=== PATIENT | female | born 1950 | race Caucasian/White ===

== ENCOUNTER → 2017-04-22 | Outpatient (CLI) | payer BC ==
[~2017-04-22] MED LIST: EPP3 IM; HMLIS SC; INSU3INJ3 SC; LISI-729 PO; NAPR1TAB9 PO; SIMV5TAB2 PO; SYN112 PO; TRAV0.00 OP
[2017-04-22 09:39] LABS: ESTIMATED AVERAGE GLUCOSE 266 mg/dl; HA1C FLAG Normal (Normal)
[2017-04-22 09:45] LABS: ALT/SGPT 55 U/L (12-78); AST/SGOT 66 U/L (15-37); BLOOD UREA NITROGEN 18 mg/dl (7-18); BUN/CREATININE RATIO 23.4 (10-20); CALCIUM 8.8 mg/dl (8.5-10.1); CARBON DIOXIDE 26 mmol/L (21-32); CHLORIDE 105 mmol/L (98-107); CREATININE 0.78 mg/dl (0.60-1.20); GLUCOSE 136 mg/dl (70-99); POTASSIUM 3.9 mmol/L (3.5-5.1); SODIUM 138 mmol/L (136-145)
[2017-04-22 09:58] LABS: ALB/GLOB RATIO 0.9 (0.9-2); ALKALINE PHOSPHATASE 154 U/L (45-117); CHOLESTEROL 132 mg/dl (0-200); CHOLESTEROL/HDL RATIO 1.6; HDL CHOLESTEROL 83 mg/dl; LDL CHOLESTEROL CALCULATED 36 mg/dl; TRIGLYCERIDES 64 mg/dl (0-150); VERY LOW DENSITY LIPOPROT CALC 13 mg/dl
== END | disposition home or self-care (01) ==
LOC: C.LAB 07:07
PROVIDERS: ATTEND Family Medicine
DX: E11.65 Type 2 diabetes mellitus with hyperglycemia (principal); I10 Essential (primary) hypertension

== ENCOUNTER 2021-05-03 20:18 | Inpatient (IN) ==
[2021-05-03] MEDS ORDERED: STAT IV Infusion **Titration per Protocol STA ×5 (20:53→22:40)
[2021-05-03] MEDS ORDERED: INSULIN REGULAR 250 UNITS in SODIUM CHLORIDE 0.9% 247.5 ML IV SCH (21:00)
[2021-05-03] MEDS ORDERED: SODIUM CHLORIDE 0.9% 1000ML 1,000 ML IV SCH ×2 (21:00)
--- NOTE | 2021-05-03 21:04 | XRay Report ---
XR chest 1V portable INDICATION: MN ^weakness . TECHNIQUE: Single frontal radiograph of the chest was obtained. Comparison: Comparison is made to chest one view 07/04/2016 FINDINGS: No lines and tubes are seen. The cardiomediastinal silhouette is normal. The lungs are clear. No evid ence of pleural effusion or pneumothorax. IMPRESSION: No acute chest disease. ACT 112: Negative or not required by law. Electronically signed by: Romeo Oviedo M.D. 05/03/2021 9:03 PM
[2021-05-03] MEDS ORDERED: DKA GOAL RANGE 150-250 mg/dl ONE (21:11)
[2021-05-03] MEDS ORDERED: CARBOHYDRATES FOR HYPOGLYCEMIA PO PRN (21:11)
[2021-05-03] MEDS ORDERED: GLUCAGON FOR INJ 1 MG VIAL SQ PRN (21:11)
[2021-05-03] MEDS ORDERED: GLUCOSE 10 TABS/TUBE PO PRN (21:11)
[2021-05-03] MEDS ORDERED: GLUCOSE 40% GEL 15 GM TUBE PO PRN (21:11)
[2021-05-03] MEDS ORDERED: DEXTROSE 50% 50 ML SYRINGE IV PRN (21:11)
[2021-05-03] MEDS ORDERED: NovoLIN-R BOLUS FROM BAG IV ONE (21:30)
[2021-05-03] MEDS: INSULIN REGULAR 250 UNITS in SODIUM CHLORIDE 0.9% 247.5 ML IV SCH (21:37)
[2021-05-03 21:40] LABS: Alanine Aminotransferase 31 U/L (12-78); Albumin Level 3.1 gm/dl (3.4-5.0); Aspartate Aminotransferase 26 U/L (15-37); BUN Creatinine Ratio 24.8 (10-20); Blood Urea Nitrogen 61 mg/dl (7-18); Calcium 9.1 mg/dl (8.5-10.1); Carbon Dioxide 5 mmol/L (21-32); Chloride 84 mmol/L (98-107); Creatinine Clr Calc Pharmacy 26.3 ml/min; Est GFR (African American) 22.3 ml/min; Est GFR (Non-African American) 19.2 ml/min; Glucose 1101 mg/dl (70-99); Potassium 6.8 mmol/L (3.5-5.1); Sodium 118 mmol/L (136-145)
[2021-05-03] MEDS ORDERED: SODIUM CHLORIDE 0.9% 1000ML 1,000 ML IV ONE (21:44)
[2021-05-03 21:46] LABS: Albumin Globulin Ratio 0.5 (0.9-2); Alkaline Phosphatase 221 U/L (45-117); Bilirubin,Total 0.7 mg/dl (0.2-1); Globulin 5.6 gm/dl (2.5-4.0); Total Protein 8.7 gm/dl (6.4-8.2); Troponin I < 0.015 ng/ml (0-0.045)
[2021-05-03] MEDS ORDERED: CALCIUM GLUCONATE 10% 10 ML VIAL IV STA (21:50)
[2021-05-03] MEDS ORDERED: SODIUM BICARB 8.4% INJ 50 MEQ/50 ML SYR IV STA (21:52)
--- NOTE | 2021-05-03 22:03 | Emergency Department Note ---
Impression & Plan DKA (diabetic ketoacidosis), Acute renal failure (ARF), Acute hyperkalemia ED Provider Note INFORMANT: Patient and sister ED PROVIDER(S): Naveen Castellanos MD CHIEF COMPLAINT: Hyperglycemia PLAN: Disposition: Admitted Condition: Critical Outpatient prescription management: none Referral: None MEDICAL DECISION MAKING: Patient presented to emergency room with hyperglycemia. She was quite uncomfortable and appeared very dry. The patient had IV established. Fluids were initiated. Bedside glucose was greater than 600. Laboratory testing confirmed suspicions for DKA. The patient was hyperkalemic and severely hyperglycemic. Pseudohyponatremia was present. The patient had acute renal failure noted. Her bicarb was 5. ECG did not show any significant abnormalities consistent with hyperkalemia. Patient was given bicarb and IV calcium. Additional fluids were given. Patient was started on insulin drip. She did receive an insulin bolus. Her insulin treatment was discussed with the pharmacist. Patient was reassessed and was doing better. She will need admitted to the hospital, likely the ICU. I discussed the case with Dr. Ceron of the hospitalist service. The patient was evaluated in the ER and admitted for further management. Triage Nursing notes reviewed and agree them. Vital Signs: reviewed and remarkable for no significant abnormalities Differential diagnosis: DKA, infection, dehydration, metabolic abnormality, hypo/hyperglycemia, electrolyte disturbance, anemia, hypoxia, cardiac sources, intracerebral event, toxicologic, neurologic, as well as other pathologies. Diagnostics interpreted by me: ECG: Twelve-lead ECG reveals normal sinus rhythm at 92 bpm. There are septal Q waves present. Minimally peaked appearance to the T waves but nothing grossly abnormal. There is no ST elevation. No PVCs or PACs. Cardiac Monitoring:Cardiac monitoring ordered by me: The patient was placed on continuous cardiac monitoring and observed. It revealed a normal sinus rhythm at 93 beats per minute without ectopy or evidence of dysrhythmia. Imaging studies: Chest x-ray. Findings: A chest x-ray was performed and revealed no pneumothorax, effusion, infiltrate, pulmonary edema, free air under the diaphragm, or wide mediastinum. Impression: No acute disease. HPI: The patient is a 70 year old female who presents to the Emergency Room with complaints of hyperglycemia. This started over the last few days and is worsening. The patient also notes she was diagnosed with Covid on the fourth. She has had symptoms for 14 days. She stopped taking her insulin because she was not eating much. The patient also notes the following associated symptoms, dry mouth, fatigue, exhaustion, occasional shortness of breath, occasional chest discomfort. The patient has found no relieving factors. Current pain is rated as 0/10. Pt denies LOC, headache, fevers, chills, diaphoresis, visual changes, neck pain, nausea, vomiting, abdominal pain, back pain, melena, hematochezia, urinary symptoms, numbness, weakness, lymphadenopathy, rash, or other complaints. ROS: See above HPI for pertinent positives & negatives. A total of 10 systems reviewed and were otherwise negative. PAST MEDICAL HISTORY:See Below , diabetes PAST SURGICAL HISTORY:See Below, FAMILY HISTORY:See Below SOCIAL HISTORY:See Below, non-smoker HOME MEDICATIONS:See Below ALLERGIES:See Below VITALS:See Below PHYSICAL EXAMINATION: GENERAL: Awake, ill-appearing, in mild distress HENT: Normocephalic, atraumatic. Oropharynx with extremely dry mucous membranes. EYES: Normal conjunctiva. Sclera non-icteric. PERRLA. EOMI. NECK: Inspection normal. Non-tender. Supple. No nuchal rigidity. FROM. No masses. RESPIRATORY: Clear to auscultation. No wheezes. No rales. Normal respiratory effort. CARDIAC: Borderline tachycardic rate. Normal rhythm. No murmurs. No rubs. Extremities warm and well perfused. Pulses equal. No JVD. GI: Soft, non-distended. No tenderness to palpation. No rebound or guarding. No masses. RECTAL: Deferred. MUSCULOSKELETAL: Atraumatic. Chest examination reveals no tenderness. The back is symmetrical on inspection without obvious abnormality. There is no CVA tenderness to palpation. No joint edema. LOWER EXTREMITIES: Calves are equal size bilaterally and non-tender. No edema. No discoloration. NEURO: Extremely fatigued but otherwise normal sensorium. No sensory or motor deficits noted. SKIN: No rash or jaundice noted. CRITICAL CARE: I have personally spent greater than 75 minutes of critical care time in the direct management of this patient. This includes bedside care, interpretation of diagnostic studies, and testing, discussion with consultants, patient, and family members, and other required patient management activities. These minutes are in excess of all separately billable procedures. Naveen Castellanos MD Past Med/Surg History Medical History (Updated 05/03/21 @ 22:03 by Naveen Castellanos MD) Bakers cyst Surgical History H/O thyroidectomy History of back surgery Family History Mother Arthritis Malignant neoplasm of urinary bladder Brother Cardiac disorder Sister Back pain Father Myocardial infarction Denies family history of Ovarian cancer Prostate cancer Breast cancer Colorectal cancer Social History Smoking Status: Never smoker Second Hand Exposure: No; Hx Alcohol Use: No Hx Substance Use: No Preferred Language: Citizen Of [place] Communication Ability: Effective Visual Impairment: Limited Hearing Ability: Normal marital status: Single Current Living Situation: Alone current occupational status: employed and retired Feels Safe at Home: Yes Childhood Exposure to Second-Hand Smoke: No Dental Care, Regularly: Yes Physical Activity Frequency: Daily Seatbelt Use: always Sunscreen Use: Yes Allergies Allergies Allergy/AdvReac Type Severity Reaction Status Date / Time bee venom protein (honey bee) Allergy Severe ANAPHYLAXIS Verified 03/18/21 10:43 lovastatin [From Mevacor] Allergy Verified 03/18/21 10:43 Home Meds Home Medications Medication Instructions Recorded Confirmed aspirin 81 mg tablet,delayed 81 mg PO DAILY tab 03/07/19 03/18/21 release fexofenadine-pseudoephedrine ER 1 tab PO DAILY PRN tab 03/07/19 03/18/21 180 mg-240 mg tablet,ext.release 24 hr (Reanna-D 24 Hour) diphenhydramine 25 1 tab PO Q6H PRN 03/18/20 03/18/21 mg-acetaminophen 500 mg tablet (Tylenol PM Extra Strength) insulin glargine 100 unit/mL (3 40 unit SQ HS ml 03/18/21 03/18/21 mL) subcutaneous pen (Lantus Solostar U-100 Insulin) insulin lispro 100 unit/mL 80 unit SQ DAILY ml 03/18/21 03/18/21 subcutaneous pen (Humalog KwikPen (U-100) Insulin) omega 9-kpg-zlx-fish oil 1,200 mg 1 cap PO DAILY cap 03/18/21 03/18/21 (144 mg-216 mg) capsule (Fish Oil) Previous Rx's Medication Instructions Recorded pneumococcal 23-jose ps vaccine 25 0.5 ml IM ONCE #0.5 ml 03/18/20 mcg/0.5 mL injection solution (Pneumovax-23) lisinopril 5 mg tablet 5 mg PO DAILY #90 tab 02/13/21 levothyroxine 125 mcg tablet 125 mcg PO DAILY #90 tab 02/20/21 gabapentin 300 mg capsule 300 mg PO HS #90 cap 03/03/21 Contour Next Test Strips (blood #200 ea NS 03/18/21 sugar diagnostic) OneTouch Delica Lancets 30 gauge #200 ea NS 03/18/21 (lancets) flash glucose sensor (FreeStyle #2 ea 04/02/21 Inez 2 Sensor) atorvastatin 40 mg tablet 40 mg PO DAILY #90 tab 04/23/21 cholecalciferol (vitamin D3) 1,250 1,250 mcg PO WEEKLY #12 cap 04/23/21 mcg (50,000 unit) capsule benzonatate 200 mg capsule 200 mg PO TID PRN #30 cap 04/28/21 amoxicillin 875 mg-potassium 1 tab PO Q12H 10 Days #20 tab 04/30/21 clavulanate 125 mg tablet (Augmentin) fluconazole 150 mg tablet 150 mg PO Q3D 0 Days #2 tab 04/30/21 Results & Data (ED) Vital Signs Vital Signs - 24 hr 05/03/21 20:44 Temperature 36.8 C Temperature Source Temporal Artery Scan Pulse Rate 93 H Respiratory Rate 20 Respiratory Depth Normal Blood Pressure 155/72 H Blood Pressure Mean 99 Blood Pressure Position Sitting Pulse Oximetry 100 Oxygen Delivery Method Room Air Sepsis Recent Fever Within 48 Hours No Sepsis New/Unexplained Change in Mental Status N/A Sepsis Action Taken by Nursing No Action Required Laboratory Data Result diagrams: 05/03/21 20:40 05/03/21 20:40 Lab Results 05/03/21 05/03/21 05/03/21 Range/Units 20:31 20:40 21:23 Sodium 118 L* (136-145) mmol/L Potassium 6.8 H* (3.5-5.1) mmol/L Chloride 84 L (98-107) mmol/L Carbon Dioxide 5 L* (21-32) mmol/L Anion Gap 30.0 H (3-11) BUN 61 H (7-18) mg/dl Creatinine 2.47 H (0.6-1.2) mg/dl Est Cr Clr Drug Dosing 26.3 ml/min Est GFR ( Amer) 22.3 ml/min Est GFR (Non-Af Amer) 19.2 ml/min BUN/Creatinine Ratio 24.8 H (10-20) Glucose 1101 H* (70-99) mg/dl POC Glucose > 600 H* (70-99) mg/dl Calcium 9.1 (8.5-10.1) mg/dl Magnesium 3.0 H (1.8-2.4) mg/dl Total Bilirubin 0.7 (0.2-1) mg/dl AST 26 (15-37) U/L ALT 31 (12-78) U/L Alkaline Phosphatase 221 H (45-117) U/L Troponin I < 0.015 (0-0.045) ng/ml Total Protein 8.7 H (6.4-8.2) gm/dl Albumin 3.1 L (3.4-5.0) gm/dl Globulin 5.6 H (2.5-4.0) gm/dl Albumin/Globulin Ratio 0.5 L (0.9-2) Beta-Hydroxybutyric Acd 139.25 H (0.2-2.81) mg/dl TSH 0.625 (0.300-4.500) uIu/ml COVID-19 Eval Order Covid19 at [facility] Administered Medications Sodium Chloride (Nss 1000ml) 1,000 mls @ 125 mls/hr IV .Q8H ERVIN Stop: 05/04/21 04:59 Last Admin: 05/03/21 21:38 Dose: 125 mls/hr Documented by: [id number] Insulin Human Regular 250 (units/ Sodium Chloride) 250 mls @ 10 mls/hr IV .Q24H ERVIN; Protocol Stop: 06/02/21 21:14 Last Admin: 05/03/21 21:37 Dose: 10 units/hr, 10 mls/hr Documented by: [id number] Cosigned by: [id number] Discontinued Medications Insulin Human Regular (Novolin-R Bolus From Bag) 10 units IV ONE ONE Stop: 05/03/21 21:31 Last Admin: 05/03/21 21:40 Dose: 10 units Documented by: [id number] Cosigned by: [id number] Imaging Data Radiologist's Impression: Chest X-Ray 05/03/21 20:53 XR chest 1V portable INDICATION: MN ^weakness . TECHNIQUE: Single frontal radiograph of the chest was obtained. Comparison: Comparison is made to chest one view 07/04/2016 FINDINGS: No lines and tubes are seen. The cardiomediastinal silhouette is normal. The l ungs are clear. No evidence of pleural effusion or pneumothorax. IMPRESSION: No acute chest disease. ACT 112: Negative or not required by law. Electronically signed by: Romeo Oviedo M.D. 05/03/2021 9:03 PM Discharge Plan Visit Data Chief Complaint: Hyperglycemia Stated Complaint: Hyperglycemic ED Provider: Naveen Castellanos Discharge Problem: DKA (diabetic ketoacidosis), Acute renal failure (ARF), Acute hyperkalemia Forms Stand Alone Forms: [facility] [employer] Prescriptions Prescriptions: No Action lisinopril 5 mg tablet 5 mg PO DAILY Qty: 90 RF: 1 levothyroxine 125 mcg tablet 125 mcg PO DAILY Qty: 90 RF: 1 (DME) FreeStyle Inez 2 Sensor Kit See Rx Instructions .Route Qty: 2 RF: 1 atorvastatin 40 mg tablet 40 mg PO DAILY Qty: 90 RF: 1 cholecalciferol (vitamin D3) 1,250 mcg (50,000 unit) capsule 1,250 mcg PO WEEKLY Qty: 12 RF: 1 amoxicillin-pot clavulanate [Augmentin] 875-125 mg tablet 1 tab PO Q12H 10 Days Qty: 20 RF: 0 fluconazole 150 mg tablet 150 mg PO Q3D 0 Days Qty: 2 RF: 0 Reanna-D 24 Hour 180-240 mg tablet extended release 24 hr 1 tab PO DAILY PRNRF: 0 diphenhydramine-acetaminophen [Tylenol PM Extra Strength] 25-500 mg tablet 1 tab PO Q6H PRNRF: 0 Pneumovax-23 25 mcg/0.5 mL solution 0.5 ml IM ONCE Qty: 0.5 RF: 0 Lantus Solostar U-100 Insulin 100 unit/mL (3 mL) insulin pen 40 unit SQ HS RF: 0 insulin lispro [Humalog KwikPen Insulin] 100 unit/mL insulin pen 80 unit SQ DAILY RF: 0 (DME) Contour Next Test Strips Strip See Rx Instructions .ROUTE .MEDSUPPLY Qty: 200 RF: 3 (DME) lancets [OneTouch Delica Lancets] 30 gauge misc See Rx Instructions .ROUTE .MEDSUPPLY Qty: 200 RF: 3 gabapentin 300 mg capsule 300 mg PO HS Qty: 90 RF: 3 benzonatate 200 mg capsule 200 mg PO TID PRN (Reason: cough) Qty: 30 RF: 1 aspirin 81 mg tablet,delayed release (DR/EC) 81 mg PO DAILY RF: 0 omega 3-jpw-pvk-fish oil [Fish Oil] 1,200 (144-216) mg capsule 1 cap PO DAILY RF: 0 Referrals Referrals: Valerie Law MD [Primary Care Provider] -
[2021-05-03 22:09] LABS: Beta-Hydroxybutyrate 139.25 mg/dl (0.2-2.81); Thyroid Stimulating Hormone 0.625 uIu/ml (0.300-4.500)
[2021-05-03 22:09] LABS: Base Excess ABG -23.5 mEq/L (-9-1.8); HCO3 ABG 5 mmol/L (19-24); Oxygen Saturation ABG 98.4 % (90-95); PCO2 ABG 17 mmHg (35-46); PO2 ABG 141 mmHg (80-95)
[2021-05-03 22:20] LABS: Allen Test Pos (Pos)
[2021-05-03 22:21] LABS: pH ABG 7.07 (7.35-7.45)
[2021-05-03 22:21] LABS: Hematocrit (blood only) 49.4 % (37-47); Hemoglobin 15.4 g/dL (12.0-16.0); Mean Corpuscular Hgb Conc 31.2 g/dL (32-36); Mean Corpuscular Volume 99.6 fL (80-100); Platelet Count 335 K/uL (130-400); Red Blood Count 4.96 M/uL (4.2-5.4); White Blood Count 17.25 K/uL (4.8-10.8)
[2021-05-03 22:23] LABS: Basophils # (auto) 0.01 K/uL (0-0.2); Basophils % (auto) 0.1 %; Echinocytes 1+; Eosinophils # (auto) 0.01 K/uL (0-0.5); Eosinophils % (auto) 0.1 %; Immature Granulocytes # (auto) 0.04 K/uL (0.00-0.02); Immature Granulocytes % (auto) 0.2 %; Lymphocytes # (auto) 1.83 K/uL (1.2-3.4); Lymphocytes % (auto) 10.6 %; Monocytes # (auto) 1.04 K/uL (0.11-0.59); Neutrophils # (auto) 14.32 K/uL (1.4-6.5); Polychromasia 1+
[2021-05-03] MEDS ORDERED: CALCIUM GLUCONATE 1000 MG/60 ML NSS IV ONE (22:39)
--- NOTE | 2021-05-03 22:56 | History & Physical Report ---
Date of Service May 03, 2021 Assessment & Plan (1) DKA (diabetic ketoacidosis): Plan: 70yo female with Type II DM on insulin therapy (last DboV3E=6.2 01/02/21) presenting with severe DKA in setting of recent Covid-19 diagnosis, non- adherence to home insulin regimen. Patient reports worsening symptoms x 72 hours. Initial blood glucose = 1101, Anion Gap=30, pH = 7.07, Serum HCO3=5, Eaijskcplp=751, B-hydroxybutyric Pdjp=399.25, K=6.8, Psuedohyponatremia with Na = 118, corrects to 134 Possibly starvation ketosis contributing as well as patient has not eaten much x 2 weeks Patient received 1L NSS bolus in the ER prior to initiation of insulin gtt. Presently receiving NSS at 125mL/hr. Insulin x 10u with gtt initiated Was administered 1amp of NaHCO3 in the ER -Admit to MICU -Continue insulin gtt per protocol for management of severe DKA. Cautious to avoid overcorrection -Neuro checks q [address] head for any changes in neurologic status -Check BMP, Mg, PO4, VBG and Serum Osmolality q 4 hours -Check HgbA1C -Check lipid panel -Check lactate -NSS at 200mL/hr, pending 1/2 NSS + addition of KCl 20mEq should serum K fall below 5.1, pending D5 1/2 NSS should blood sugar reach goal range -Glycemic management consultation appreciated (2) Acute renal failure (ARF): Plan: Patient with YELITZA. BUN of 61 from prior normal of 19 and Cr of 2.47 from prior value of 0.98. Patient appears clinically dry on physical exam. Reports poor oral intake as well as marked increase in urination - most likely from hyperglycemia. K=6.8. No EKG changes of hyperkalemia. -IVF as above with NSS -Monitor BMP q 4 hours per DKA protocol, K repletion with caution with use of insulin gtt and YELITZA -Avoid nephrotoxic agents -Renal dosing where needed (3) Acute hyperkalemia: Plan: As above. K=6.8. No acute EKG changes of hyperkalemia. Patient administered Ca gluconate x 1 gm in ER. Insulin gtt as above for management of DKA with BMP q 4 hours -Monitor (4) Hypothyroidism: Plan: TSH=0.625 currently -Continue Synthroid 125mcg po daily (5) Hypertension: Plan: Blood pressure mildly elevated at 155/72 -Hold Lisinopril for now in setting of YELITZA -Continue to monitor (6) Dyslipidemia: Plan: Chronic -Continue Atorvastatin 40mg po daily (7) COVID-19: Plan: Patient with appx 14 days of symptoms consistent with Covid-19. She tested POSITIVE at an outpatient setting on 04/28/21. She was at home in quarantine for the last two weeks. Patient's Covid-19 test today is NEGATIVE. -Maintain isolation precautions as patient had positive test on 04/28/21 -Private room, not in Covid-19 ayala -Monitor oxygenation. Presently not hypoxic, no indication for supplemental O2 or steroid therapy Plan: F/E/N - NSS at 200mL/hr for now, discussion of electrolytes as above - monitor K, Na corrects to normal Ppx - heparin 5000 u TID Code - Full per discussion with patient Dispo - Admit to MICU History of Present Illness Chief Complaint: DKA Primary Care Provider: Valerie Law MD Nora Antony is a 70yo female with history of DM, HTN, HLP presenting with DKA. Patient has been experiencing cough, sore throat, loss of taste and smell for 14 days. She had Covid-19 testing performed in the outpatient setting and was found to be POSITIVE for Covid-19 on 04/28/21. She has been recovering at home. No steroids given. She was prescribed Augmentin for presumed sinus infection as well as Tessalon as needed for cough. Patient reports 3 days of extreme fatigue as well as gait instability, generalized weakness and confusion. She has eaten very little for the last two weeks of illness and has not been taking her insulin for the last two weeks. She has not been monitoring her blood sugar at home. She states she has been urinating a lot and has had dry mouth and SOB. She denies fever, chills, cough, chest pain, palpitations, abdominal pain, nausea, vomiting, diarrhea or constipation. No additional complaints at this time. ER workup revealed DKA with blood sugar = 1101, AG = 30, HCO3=5 and pH = 7.07 ER Course: Ca gluconate 1gm, NaHCO3 x 50mEq, NSS x 1 L then at 125mL/hr, Insulin 10u and gtt at 10u/hr starting rate Allergies Allergy/AdvReac Type Severity Reaction Status Date / Time bee venom protein (honey bee) Allergy Severe ANAPHYLAXIS Verified 05/03/21 22:59 lovastatin [From Mevacor] Allergy Unknown Verified 05/03/21 22:59 Home Medications Medication Instructions Recorded Confirmed Type aspirin 81 mg tablet,delayed 81 mg PO DAILY tab 03/07/19 03/18/21 History release fexofenadine-pseudoephedrine ER 1 tab PO DAILY PRN tab 03/07/19 03/18/21 History 180 mg-240 mg tablet,ext.release 24 hr (Reanna-D 24 Hour) diphenhydramine 25 1 tab PO Q6H PRN 03/18/20 03/18/21 History mg-acetaminophen 500 mg tablet (Tylenol PM Extra Strength) lisinopril 5 mg tablet 5 mg PO DAILY #90 tab 02/13/21 03/18/21 Rx levothyroxine 125 mcg tablet 125 mcg PO DAILY #90 tab 02/20/21 03/18/21 Rx gabapentin 300 mg capsule 300 mg PO HS #90 cap 03/03/21 03/18/21 Rx Contour Next Test Strips (blood #200 ea NS 03/18/21 03/18/21 Rx sugar diagnostic) OneTouch Delica Lancets 30 gauge #200 ea NS 03/18/21 03/18/21 Rx (lancets) insulin glargine 100 unit/mL (3 40 unit SQ HS ml 03/18/21 03/18/21 History mL) subcutaneous pen (Lantus Solostar U-100 Insulin) insulin lispro 100 unit/mL 80 unit SQ DAILY ml 03/18/21 03/18/21 History subcutaneous pen (Humalog KwikPen (U-100) Insulin) omega 0-fas-tzn-fish oil 1,200 mg 1 cap PO DAILY cap 03/18/21 03/18/21 History (144 mg-216 mg) capsule (Fish Oil) flash glucose sensor (FreeStyle #2 ea 04/02/21 Rx Inez 2 Sensor) atorvastatin 40 mg tablet 40 mg PO DAILY #90 tab 04/23/21 Rx cholecalciferol (vitamin D3) 1,250 1,250 mcg PO WEEKLY #12 cap 04/23/21 Rx mcg (50,000 unit) capsule benzonatate 200 mg capsule 200 mg PO TID PRN #30 cap 04/28/21 04/28/21 Rx amoxicillin 875 mg-potassium 1 tab PO Q12H 10 Days #20 tab 04/30/21 Rx clavulanate 125 mg tablet (Augmentin) fluconazole 150 mg tablet 150 mg PO Q3D 0 Days #2 tab 04/30/21 Rx Past Med/Surg History Medical History (Updated 05/03/21 @ 23:40 by Kailee Ceron DO) Bakers cyst COVID-19 Dyslipidemia Hypertension Hypothyroidism Type 2 diabetes mellitus treated with insulin Surgical History H/O thyroidectomy History of back surgery Family History Mother Arthritis Malignant neoplasm of urinary bladder Brother Cardiac disorder Sister Back pain Father Myocardial infarction Denies family history of Ovarian cancer Prostate cancer Breast cancer Colorectal cancer Social History Smoking Status: Never smoker Second Hand Exposure: No; Hx Alcohol Use: No Hx Substance Use: No Preferred Language: Maltese Communication Ability: Effective Visual Impairment: Limited Hearing Ability: Normal marital status: Single Current Living Situation: Alone current occupational status: employed and retired Feels Safe at Home: Yes Childhood Exposure to Second-Hand Smoke: No Dental Care, Regularly: Yes Physical Activity Frequency: Daily Seatbelt Use: always Sunscreen Use: Yes Review of Systems Review of Systems: All systems reviewed & are unremarkable except as noted in HPI & below +weakness, fatigue, SOB, dry mouth Denies fever, chills, chest pain, abdominal pain, nausea, vomiting, diarrhea or constipation Physical Exam Physical Exam: General: patient ill in appearance, somnolent but arousable, oriented x 3, answering questions appropriately and following commands Skin: warm, dry, intact, no rashes or lesions HEENT: NC/AT, PERRL, +photophobia, anicteric sclera, conjunctiva without injection, external ear normal to inspection and nontender, nares patent, DRY lips and mucus membranes, dentition intact, no oropharyngeal lesions, neck supple, trachea midline, no LAD, no thyromegaly, no JVD Heart: +S1/S2, regular, no m/r/g Lungs: +tachypnea with Kussmaul's respirations, equal air entry bilaterally, no rales/rhonchi/wheezes Abd: +BS, soft, ND, diffusely tender with deep palpation, no rebound/guarding/peritoneal signs, no masses/organomegaly/ascites Ext: warm, 2+ pulses in UE/LE bilaterally, no clubbing/cyanosis or edema Neuro: somnolent, arousable, nonfocal, patient AA&O x 4, speech intact, no facial droop, moving all extremities on command with equal strength 5/5 Results & Data Results & Data ([place]) Vital Signs (Past 12 Hours) Vital Signs Temp Pulse Resp BP Pulse Ox 05/03/21 20:44 36.8 C 93 H 20 155/72 H 100 Laboratory Results Laboratory Results WBC 17.25 K/uL (4.8-10.8) H 05/03/21 20:40 RBC 4.96 M/uL (4.2-5.4) 05/03/21 20:40 Hgb 15.4 g/dL (12.0-16.0) 05/03/21 20:40 Hct 49.4 % (37-47) H 05/03/21 20:40 MCV 99.6 fL (80-100) 05/03/21 20:40 MCH 31.0 pg (25-34) 05/03/21 20:40 MCHC 31.2 g/dL (32-36) L 05/03/21 20:40 Plt Count 335 K/uL (130-400) 05/03/21 20:40 Immature Gran % (Auto) 0.2 % 05/03/21 20:40 Neut % (Auto) 83.0 % 05/03/21 20:40 Lymph % (Auto) 10.6 % 05/03/21 20:40 [place] % (Auto) 6.0 % 05/03/21 20:40 Eos % (Auto) 0.1 % 05/03/21 20:40 Baso % (Auto) 0.1 % 05/03/21 20:40 Neut # (Auto) 14.32 K/uL (1.4-6.5) H 05/03/21 20:40 Lymph # (Auto) 1.83 K/uL (1.2-3.4) 05/03/21 20:40 [place] # (Auto) 1.04 K/uL (0.11-0.59) H 05/03/21 20:40 Eos # (Auto) 0.01 K/uL (0-0.5) 05/03/21 20:40 Baso # (Auto) 0.01 K/uL (0-0.2) 05/03/21 20:40 Immature Gran # (Auto) 0.04 K/uL (0.00-0.02) H 05/03/21 20:40 Polychromasia 1+ 05/03/21 20:40 Echinocytes 1+ 05/03/21 20:40 ABG pH 7.07 (7.35-7.45) L* 05/03/21 21:57 ABG pCO2 17 mmHg (35-46) L 05/03/21 21:57 ABG pO2 141 mmHg (80-95) H 05/03/21 21:57 ABG HCO3 5 mmol/L (19-24) L 05/03/21 21:57 ABG O2 Saturation 98.4 % (90-95) H 05/03/21 21:57 ABG Base Excess -23.5 mEq/L (-9-1.8) L 05/03/21 21:57 [place] Test Pos (Pos) 05/03/21 21:57 Barometric Pressure 735.9 mm/Hg 05/03/21 21:57 Oxygen Given ROOM AIR 05/03/21 21:57 Sodium 118 mmol/L (136-145) L* 05/03/21 20:40 Potassium 6.8 mmol/L (3.5-5.1) H* 05/03/21 20:40 Chloride 84 mmol/L (98-107) L 05/03/21 20:40 Carbon Dioxide 5 mmol/L (21-32) L* 05/03/21 20:40 Anion Gap 30.0 (3-11) H 05/03/21 20:40 BUN 61 mg/dl (7-18) H 05/03/21 20:40 Creatinine 2.47 mg/dl (0.6-1.2) H 05/03/21 20:40 Est Cr Clr Drug Dosing 26.3 ml/min 05/03/21 20:40 Est GFR ( Amer) 22.3 ml/min 05/03/21 20:40 Est GFR (Non-Af Amer) 19.2 ml/min 05/03/21 20:40 BUN/Creatinine Ratio 24.8 (10-20) H 05/03/21 20:40 Glucose 1101 mg/dl (70-99) H* 05/03/21 20:40 POC Glucose > 600 mg/dl (70-99) H* 05/03/21 20:31 Osmolality 361 mOsm/kg (280-300) H* 05/03/21 20:40 Calcium 9.1 mg/dl (8.5-10.1) 05/03/21 20:40 Magnesium 3.0 mg/dl (1.8-2.4) H 05/03/21 20:40 Total Bilirubin 0.7 mg/dl (0.2-1) 05/03/21 20:40 AST 26 U/L (15-37) 05/03/21 20:40 ALT 31 U/L (12-78) 05/03/21 20:40 Alkaline Phosphatase 221 U/L (45-117) H 05/03/21 20:40 Troponin I < 0.015 ng/ml (0-0.045) 05/03/21 20:40 Total Protein 8.7 gm/dl (6.4-8.2) H 05/03/21 20:40 Albumin 3.1 gm/dl (3.4-5.0) L 05/03/21 20:40 Globulin 5.6 gm/dl (2.5-4.0) H 05/03/21 20:40 Albumin/Globulin Ratio 0.5 (0.9-2) L 05/03/21 20:40 Beta-Hydroxybutyric Acd 139.25 mg/dl (0.2-2.81) H 05/03/21 20:40 TSH 0.625 uIu/ml (0.300-4.500) 05/03/21 20:40 COVID-19 Eval Order Covid19 at [facility] 05/03/21 21:23 SARS-CoV-2 (PCR) NEGATIVE (Negative) 05/03/21 21:23 Impressions Chest X-Ray 05/03/21 20:53 XR chest 1V portable INDICATION: MN ^weakness . TECHNIQUE: Single frontal radiograph of the chest was obtained. Comparison: Comparison is made to chest one view 07/04/2016 FINDINGS: No lines and tubes are seen. The cardiomediastinal silhouette is normal. The lungs are clear. No evidence of pleural effusion or pneumothorax. IMPRESSION: No acute chest disease. ACT 112: Negative or not required by law. Electronically signed by: Romeo Oviedo M.D. 05/03/2021 9:03 PM ECG Additional Comments: EKG shows NSR at 92, normal axis, YA=766, YTY=814, ATs=424, TWI present in inferior leads, ST depressions in V4-V6 Code Status & VTE Plan VTE Prophylaxis Plan VTE Prophylaxis will be ordered: Yes Critical Care Time 55 minutes PG Care Time/CCT Total # of Minutes Spent Total Time Spent with Patient: Total time spent is greater than 50% in coordination of care (as documented) at patient's floor/unit and/or counseling patient: Coding Level of Care Code None Diagnoses Hypothyroidism E03.9 Hypothyroidism type: acquired Hypertension I10 Hypertension type: essential hypertension Dyslipidemia E78.5 DKA (diabetic ketoacidosis) E11.10 Acute renal failure (ARF) N17.9 Acute hyperkalemia E87.5 COVID-19 U07.1 (1) Hypothyroidism Hypothyroidism type: acquired Qualified Code(s): E03.9 - Hypothyroidism, unspecified (2) Hypertension Hypertension type: essential hypertension Qualified Code(s): I10 - Essential (primary) hypertension
--- NOTE | 2021-05-03 23:55 | Critical Care Consultation ---
Date of Consultation May 03, 2021 Assessment & Plan (1) DKA (diabetic ketoacidosis): Reason Critically Ill: 70-year-old female presents to the ICU with DKA, and severe metabolic acidosis Neuro - CAM ICU: Negative Cardiac - HTNholding lisinopril in the setting of YELITZA Respiratory - Patient mildly tachypneic compensatory for metabolic acidosis Maintaining oxygen saturation on room air Continuous monitoring on pulse ox GI - Diabetic diet RENAL/LYTES - AKIcreatinine 2.47 with baseline 0.98. Suspect patient is significantly dehydrated in the setting of DKA and poor oral intake for the past 2 weeks -Continue IV fluid resuscitation -BMPs every 4 hours, monitor electrolytes -Avoid nephrotoxins renally adjust medications -Monitor - Foleystrict I's and O's ENDO - DKADM type 2, insulin-dependent patient presents with BSG 1101, a gap 30, HCO3 5, pH 7.05, and BHA 139 -Hyperkalemia and pseudohyponatremia as well -Appears to be improving on last BMP following 2 L normal saline bolus and insulin drip -Proceed with DKA protocol -Trend BMPs and VBG's every 4 HypothyroidTSH within normal limits, continue Synthroid HEME - H&H stable, monitor routine CBCs ID - COVID-19patient with 14 days of symptoms and tested positive as outpatient 04/28. She has home quarantine for 2 weeks. Tested negative for COVID-19 today -We will maintain isolation precautions due to positive test on 04/28 -Currently maintaining oxygen saturation on room air no indication for perry pplemental O2 or steroids at this time -Previously vaccinated -Monitor Monitor fever curve LINES/IV ACCESS - Peripheral IVs DVT PROPHYLAXIS - SCDs, heparin I have personally spent 40 minutes of critical care time in the direct management of this patient. This is a life/limb threatening event. This includes time spent evaluating patient, direct bedside care, chart review, placing orders, interpretation of diagnostic studies, discussion with consultants, patient, and family members, as well as other required patient management activities. This time is exclusive of all separately billable procedures, and teaching time and separate from and in addition to any other critical care service time. Thank you for allowing us to participate in the care of this patient. Please refer to my attending physician's documentation for any further recommendations. (2) COVID-19: (3) Type 2 diabetes mellitus treated with insulin: (4) Hypothyroidism: (5) Hypertension: (6) Dyslipidemia: (7) Acute hyperkalemia: (8) YELITZA (acute kidney injury): (9) Glaucoma: (10) Nonproliferative diabetic retinopathy of both eyes: (11) Idiopathic polyneuropathy: History of Present Illness Attending Physician: Kailee Ceron DO History of Present Illness Patient is a 70-year-old female with past medical history of DM type II, HTN, HLD, and recent diagnosis of COVID-19. Patient states that she has had cough, sore throat, and loss of taste and smell for the past 2 weeks and had positive COVID-19 testing on 04/28. She states that she was previously vaccinated. She was not on steroids and was prescribed Augmentin for presumed sinus infection as well as Tessalon [place] for cough. Patient presented to the emergency department earlier today with complaints of worsening fatigue and 3 days of gait instability. She states that her oral intake has been significantly reduced for the past 2 weeks and she has not been monitoring her blood sugars at home or taking insulin. On arrival to the emergency department she was found to have glucose of 1101, anion gap 30, HCO3 5 and pH 7.07 with BHA 139. She was hyperkalemic and hyponatremic. Patient was given 2 L normal saline bolus and placed on insulin drip. Patient is now being transferred to the ICU for further management of DKA. On arrival to the ICU the patient is alert and oriented without acute distress. She is mildly tachypneic with respiratory rate in the low 20s but breathing is nonlabored. She reports dizziness/disturbances with equilibrium with ambulation but is asymptomatic at rest. She denies headache, dizziness, fevers, sore throat, shortness of breath, chest pain, palpitations, abdominal pain, nausea vomiting or diarrhea. Patient to remain in ICU for further management at this time Allergies Allergy/AdvReac Type Severity Reaction Status Date / Time bee venom protein (honey bee) Allergy Severe ANAPHYLAXIS Verified 05/03/21 22:59 lovastatin [From Mevacor] Allergy Unknown Verified 05/03/21 22:59 Home Medications Medication Instructions Recorded Confirmed Type aspirin 81 mg tablet,delayed 81 mg PO DAILY tab 03/07/19 05/03/21 History release fexofenadine-pseudoephedrine ER 1 tab PO DAILY PRN tab 03/07/19 05/03/21 History 180 mg-240 mg tablet,ext.release 24 hr (Reanna-D 24 Hour) diphenhydramine 25 1 tab PO Q6H PRN 03/18/20 05/03/21 History mg-acetaminophen 500 mg tablet (Tylenol PM Extra Strength) lisinopril 5 mg tablet 5 mg PO DAILY #90 tab 02/13/21 05/03/21 Rx levothyroxine 125 mcg tablet 125 mcg PO DAILY #90 tab 02/20/21 05/03/21 Rx gabapentin 300 mg capsule 300 mg PO HS #90 cap 03/03/21 05/03/21 Rx Contour Next Test Strips (blood #200 ea NS 03/18/21 05/03/21 Rx sugar diagnostic) OneTouch Delica Lancets 30 gauge #200 ea NS 03/18/21 05/03/21 Rx (lancets) insulin glargine 100 unit/mL (3 45 unit SQ HS ml 03/18/21 05/03/21 History mL) subcutaneous pen (Lantus Solostar U-100 Insulin) insulin lispro 100 unit/mL 25 unit SQ TIDM ml 03/18/21 05/03/21 History subcutaneous pen (Humalog KwikPen (U-100) Insulin) omega 3-yjo-apn-fish oil 1,200 mg 1 cap PO DAILY cap 03/18/21 05/03/21 History (144 mg-216 mg) capsule (Fish Oil) flash glucose sensor (FreeStyle #2 ea 04/02/21 05/03/21 Rx Inez 2 Sensor) atorvastatin 40 mg tablet 40 mg PO DAILY #90 tab 04/23/21 05/03/21 Rx cholecalciferol (vitamin D3) 1,250 1,250 mcg PO WEEKLY #12 cap 04/23/21 05/03/21 Rx mcg (50,000 unit) capsule benzonatate 200 mg capsule 200 mg PO TID PRN #30 cap 04/28/21 05/03/21 Rx amoxicillin 875 mg-potassium 1 tab PO Q12H 10 Days #20 tab 04/30/21 05/03/21 Rx clavulanate 125 mg tablet (Augmentin) fluconazole 150 mg tablet 150 mg PO Q3D 0 Days #2 tab 04/30/21 05/03/21 Rx Patient History Medical History (Updated 05/04/21 @ 00:01 by POWER Moore) Bakers cyst COVID-19 Dyslipidemia Hypertension Hypothyroidism Type 2 diabetes mellitus treated with insulin Surgical History H/O thyroidectomy History of back surgery Family History Mother Arthritis Malignant neoplasm of urinary bladder Brother Cardiac disorder Sister Back pain Father Myocardial infarction Denies family history of Ovarian cancer Prostate cancer Breast cancer Colorectal cancer Social History Smoking Status: Never smoker Second Hand Exposure: No; Hx Alcohol Use: No Hx Substance Use: No Preferred Language: Nauruan Communication Ability: Effective Visual Impairment: Limited Hearing Ability: Normal Beliefs That Will Affect Care: None marital status: Single Current Living Situation: Alone current occupational status: employed and retired Feels Safe at Home: Yes Childhood Exposure to Second-Hand Smoke: No Dental Care, Regularly: Yes Physical Activity Frequency: Daily Seatbelt Use: always Sunscreen Use: Yes Assistive Devices: Glasses Review of Systems Review of Systems: All systems reviewed & are unremarkable except as noted in HPI & below Physical Exam Eyes: PERRL, conjunctivae normal, anicteric sclerae ENMT: external ear and nose normal, oropharynx normal Neck: trachea midline, no thyromegaly Respiratory: normal respiratory effort, lungs clear to auscultation + tachypneic Cardiovascular: RRR, no murmur, no edema Heart Sounds: normal S1 and normal S2 Gastrointestinal (Abdomen): normal bowel sounds, soft, nontender, no hepatosplenomegaly Musculoskeletal: no cyanosis or clubbing, extremities motor strength 5/5 Skin: no rashes, warm and dry Neurologic: PERRL, EOMI, accommodation nl, no face palsy, no dysarthria Psychiatric: A+Ox3, euthymic affect Results & Data Results & Data ([facility]) Vital Signs (Past 12 Hours) Vital Signs Temp Pulse Resp BP Pulse Ox 05/03/21 20:44 36.8 C 93 H 20 155/72 H 100 Coding Level of Care Code Critical Care 1st 30-74 mins Diagnoses COVID-19 U07.1 Type 2 diabetes mellitus treated with insulin E11.9; Z79.4 Hypothyroidism E03.9 Hypothyroidism type: acquired Hypertension I10 Hypertension type: essential hypertension Dyslipidemia E78.5 DKA (diabetic ketoacidosis) E11.10 Acute hyperkalemia E87.5 YELITZA (acute kidney injury) N17.9 Glaucoma H40.9 Glaucoma type: unspecified Laterality: unspecified laterality Nonproliferative diabetic retinopathy of both eyes E11.3293 Idiopathic polyneuropathy G60.9 (1) Hypothyroidism Hypothyroidism type: acquired Qualified Code(s): E03.9 - Hypothyroidism, unspecified (2) Glaucoma Glaucoma type: unspecified Laterality: unspecified laterality Qualified Code(s): H40.9 - Unspecified glaucoma (3) Hypertension Hypertension type: essential hypertension Qualified Code(s): I10 - Essential (primary) hypertension
[2021-05-04 00:03] LABS: BUN Creatinine Ratio 26.1 (10-20); Calcium 8.7 mg/dl (8.5-10.1); Creatinine Clr Calc Pharmacy 27.2 ml/min; Est GFR (African American) 23.3 ml/min; Est GFR (Non-African American) 20.1 ml/min; Potassium 4.9 mmol/L (3.5-5.1)
[2021-05-04] MEDS ORDERED: HHS GOAL RANGE 250-350 mg/dl ONE (00:11)
[2021-05-04] MEDS ORDERED: PHARMACY GLYCEMIC MGMT CONSULT PRN (00:11)
[2021-05-04] MEDS ORDERED: INSULIN REGULAR 250 UNITS in SODIUM CHLORIDE 0.9% 247.5 ML IV SCH (00:11)
[2021-05-04] MEDS ORDERED: PENDING 1/2NSS+20mEq KCL IVF SCH (00:11)
[2021-05-04] MEDS ORDERED: SODIUM CHLORIDE 0.9% 1000ML 1,000 ML IV SCH (00:15)
[2021-05-04] MEDS ORDERED: GLUCOSE 10 TABS/TUBE PO PRN (00:30)
[2021-05-04] MEDS ORDERED: GLUCOSE 40% GEL 15 GM TUBE PO PRN (00:30)
[2021-05-04] MEDS ORDERED: DEXTROSE 50% 50 ML SYRINGE IV PRN (00:30)
[2021-05-04] MEDS ORDERED: CARBOHYDRATES FOR HYPOGLYCEMIA PO PRN (00:30)
[2021-05-04] MEDS ORDERED: POTASSIUM CHLORIDE 20 MEQ in SODIUM CHLORIDE 0.45 % 1,000 ML IV SCH (00:30)
[2021-05-04] MEDS ORDERED: GLUCAGON FOR INJ 1 MG VIAL IM PRN (00:30)
[2021-05-04] MEDS: SODIUM CHLOR 0.45% + 20MEQ KCL 20 MEQ/1,000 ML BAG IV SCH ×2 (00:52→05:59)
[2021-05-04 00:53] LABS: Beta-Hydroxybutyrate 127.9 mg/dl (0.2-2.81)
[2021-05-04 01:25] LABS: BUN Creatinine Ratio 28.9 (10-20); Calcium 8.4 mg/dl (8.5-10.1); Creatinine Clr Calc Pharmacy 29.7 ml/min; Est GFR (African American) 26.4 ml/min; Est GFR (Non-African American) 22.8 ml/min; Magnesium 2.8 mg/dl (1.8-2.4); Phosphorus 5.8 mg/dl (2.5-4.9); Potassium 4.7 mmol/L (3.5-5.1)
[2021-05-04 01:42] LABS: Beta-Hydroxybutyrate 119.41 mg/dl (0.2-2.81)
[2021-05-04 02:17] LABS: Appearance Urine Cloudy (Clear); Bacteria Urine Automated Negative (Negative); Bilirubin Urine Negative (Negative); Blood Urine 2+ (Negative); Color Urine Yellow; Epithelial Cell Urine Auto >30 /lpf (0-5); Glucose Urine UA 3+ (Negative); Ketones Urine 2+ (Negative); Leukocyte Esterase Urine Negative (Negative); Nitrite Urine Negative (Negative); Protein Urine 1+ (Negative); RBC Urine Automated 0-4 /hpf (0-4); Specific Gravity Urine 1.024 (1.000-1.030); Urobilinogen Urine Negative (Negative)
[2021-05-04 02:49] LABS: Beta-Hydroxybutyrate 102.65 mg/dl (0.2-2.81)
[2021-05-04 05:55] LABS: Albumin Level 2.6 gm/dl (3.4-5.0); Bilirubin Direct 0.2 mg/dl (0-0.2); Bilirubin,Total 0.6 mg/dl (0.2-1); Total Protein 7.5 gm/dl (6.4-8.2)
[2021-05-04] MEDS: HEPARIN SOD 5,000 UNIT/0.5 ML VIAL SQ SCH ×3 (05:59→20:56)
[2021-05-04] MEDS: LEVOTHYROXINE SODIUM 125 MCG TABLET PO SCH (05:59)
[2021-05-04 06:01] LABS: BUN Creatinine Ratio 30.8 (10-20); Calcium 8.5 mg/dl (8.5-10.1); Creatinine Clr Calc Pharmacy 34.3 ml/min; Est GFR (African American) 31.4 ml/min; Est GFR (Non-African American) 27.1 ml/min; Magnesium 2.7 mg/dl (1.8-2.4); Potassium 4.5 mmol/L (3.5-5.1)
[2021-05-04 06:02] LABS: Phosphorus 2.1 mg/dl (2.5-4.9)
[2021-05-04 06:14] LABS: Beta-Hydroxybutyrate 37.76 mg/dl (0.2-2.81)
[2021-05-04 06:43] LABS: Basophils # (auto) 0.02 K/uL (0-0.2); Basophils % (auto) 0.1 %; Hematocrit (blood only) 32.9 % (37-47); Hemoglobin 11.4 g/dL (12.0-16.0); Immature Granulocytes # (auto) 0.11 K/uL (0.00-0.02); Immature Granulocytes % (auto) 0.5 %; Lymphocytes # (auto) 2.32 K/uL (1.2-3.4); Lymphocytes % (auto) 11.1 %; Mean Corpuscular Hemoglobin 31.8 pg (25-34); Mean Corpuscular Hgb Conc 34.7 g/dL (32-36); Mean Corpuscular Volume 91.6 fL (80-100); Mean Platelet Volume 10.5 fL (7.4-10.4); Monocytes # (auto) 1.78 K/uL (0.11-0.59); Monocytes % (auto) 8.5 %; Neutrophils # (auto) 16.64 K/uL (1.4-6.5); Neutrophils % (auto) 79.8 %; Platelet Count 322 K/uL (130-400); RDW Coefficient of Variation 11.7 % (11.5-14.5); RDW Standard Deviation 39.8 fL (36.4-46.3); Red Blood Count 3.59 M/uL (4.2-5.4); White Blood Count 20.87 K/uL (4.8-10.8)
[2021-05-04] MEDS ORDERED: DKA GOAL RANGE 150-250 mg/dl ONE (07:15)
[2021-05-04] MEDS ORDERED: INSULIN ASPART 100 UNITS/ML 3 ML PEN SC SCH (07:30)
--- NOTE | 2021-05-04 07:45 | Hospitalist Progress Note ---
Date of Service May 04, 2021 Assessment & Plan (1) DKA (diabetic ketoacidosis): Plan: 70yo female with Type II DM on insulin therapy (last EavL0K=4.2 01/02/21) presenting with severe DKA in setting of recent Covid-19 diagnosis, non- adherence to home insulin regimen. Patient reports worsening symptoms x 72 hours. Initial blood glucose = 1101, Anion Gap=30, pH = 7.07, Serum HCO3=5, Nfpdcfppla=625, B-hydroxybutyric Jrrm=833.25, K=6.8, Psuedohyponatremia with Na = 118, corrects to 134 Possibly starvation ketosis contributing as well as patient has not eaten much x 2 weeks Patient received 1L NSS bolus in the ER prior to initiation of insulin gtt. Presently receiving NSS at 125mL/hr. Insulin x 10u with gtt initiated Was administered 1amp of NaHCO3 in the ER -Admit to MICU -Continue insulin gtt per protocol for management of severe DKA. Cautious to avoid overcorrection -Neuro checks q [address] head for any changes in neurologic status -Anion gap now closed. -bridged with insuline glargine 50 units. -Continue IVF -Glycemic management consultation appreciated (2) Acute renal failure (ARF): Plan: Patient with YELITZA. BUN of 61 from prior normal of 19 and Cr of 2.47 from prior value of 0.98. Patient appears clinically dry on physical exam. Reports poor oral intake as well as marked increase in urination - most likely from hyperglycemia. K=6.8. No EKG changes of hyperkalemia. -IVF as above with NSS -Avoid nephrotoxic agents -Renal dosing where needed (3) Acute hyperkalemia: Plan: As above. K=6.8 on admission. No acute EKG changes of hyperkalemia. Patient administered Ca gluconate x 1 gm in ER. Insulin gtt as above for management of DKA with BMP q 4 hours -Improved -Monitor (4) Hypothyroidism: Plan: TSH=0.625 currently -Continue Synthroid 125mcg po daily (5) Hypertension: Plan: Blood pressure mildly elevated at 155/72 -Hold Lisinopril for now in setting of YELITZA -Continue to monitor (6) Dyslipidemia: Plan: Chronic -Continue Atorvastatin 40mg po daily (7) COVID-19: Plan: Patient with appx 14 days of symptoms consistent with Covid-19. She tested POSITIVE at an outpatient setting on 04/28/21. She was at home in quarantine for the last two weeks. Patient's Covid-19 test today is NEGATIVE. -Maintain isolation precautions as patient had positive test on 04/28/21 -Private room, not in Covid-19 ayala -Monitor oxygenation. Presently not hypoxic, no indication for supplemental O2 or steroid therapy Plan: Ppx - heparin 5000 u TID Code - Full per discussion with patient \ Admission and Anticipated Discharge Date Admission Date: May 03, 2021 Subjective Patient is drowsy. Patient is resting comfortably. Review of Systems Review of Systems: All systems reviewed & are unremarkable except as noted in HPI & below Physical Exam Physical Exam: General: patient ill in appearance, somnolent but arousable, oriented x 3, answering questions appropriately and following commands Skin: warm, dry, intact, no rashes or lesions HEENT: NC/AT, PERRL, +photophobia, anicteric sclera, conjunctiva without injection, external ear normal to inspection and nontender, nares patent, DRY lips and mucus membranes, dentition intact, no oropharyngeal lesions, neck supple, trachea midline, no LAD, no thyromegaly, no JVD Heart: +S1/S2, regular, no m/r/g Lungs: CTA B/L, no rales/rhonchi/wheezes Abd: +BS, soft, ND, diffusely tender with deep palpation, no rebound/guarding/peritoneal signs, no masses/organomegaly/ascites Ext: warm, 2+ pulses in UE/LE bilaterally, no clubbing/cyanosis or edema Neuro: somnolent, arousable, nonfocal, patient AA&O x 4, speech intact, no facial droop, moving all extremities on command with equal strength 5/5 Results & Data Results & Data ([facility]) Vital Signs (Past 12 Hours) Vital Signs Temp Pulse Pulse Resp BP BP Pulse Ox 05/04/21 06:00 36.6 C 76 130/63 97 05/04/21 05:00 36.5 C 83 97 05/04/21 04:00 36.4 C L 80 120/64 99 05/04/21 03:00 36.2 C L 87 125/61 99 05/04/21 02:00 35.9 C L 93 H 125/73 99 05/04/21 01:00 96 H 121/66 100 05/04/21 00:00 95 H 123/75 100 05/03/21 23:51 95 H 24 121/58 L 100 05/03/21 20:44 36.8 C 93 H 20 155/72 H 100 PG Care Time/CCT Total # of Minutes Spent Total Time Spent with Patient: Total time spent is greater than 50% in coordination of care (as documented) at patient's floor/unit and/or counseling patient: Coding Level of Care Code 17991 Subseq Hosp Care Lvl 3 Diagnoses DKA (diabetic ketoacidosis) E11.10 Acute renal failure (ARF) N17.9 Acute hyperkalemia E87.5 Hypothyroidism E03.9 Hypothyroidism type: acquired Hypertension I10 Hypertension type: essential hypertension Dyslipidemia E78.5 COVID-19 U07.1 (1) Hypothyroidism Hypothyroidism type: acquired Qualified Code(s): E03.9 - Hypothyroidism, unspecified (2) Hypertension Hypertension type: essential hypertension Qualified Code(s): I10 - Essential (primary) hypertension
[2021-05-04] MEDS: INSULIN ASPART 100 UNITS/ML 3 ML PEN SC SCH ×4 (07:46→21:29)
[2021-05-04] MEDS: PENDING D5 1/2NS+20mEq KCL IVF SCH ×3 (07:46→21:49)
[2021-05-04] MEDS: ATORVASTATIN 40 MG TAB PO SCH (08:04)
[2021-05-04] MEDS: ASPIRIN 81 MG ECTAB PO SCH (08:04)
[2021-05-04] MEDS ORDERED: INSULIN GLARGINE SOLOSTAR 100 UNITS/ML 3 ML PEN SC SCH (09:00)
[2021-05-04 09:17] LABS: BUN Creatinine Ratio 31.7 (10-20); Calcium 8.6 mg/dl (8.5-10.1); Creatinine Clr Calc Pharmacy 40.6 ml/min; Est GFR (African American) 38.6 ml/min; Est GFR (Non-African American) 33.3 ml/min; Magnesium 2.6 mg/dl (1.8-2.4); Potassium 4.2 mmol/L (3.5-5.1)
--- NOTE | 2021-05-04 09:29 | Critical Care Progress Note ---
Date of Service May 04, 2021 Assessment & Plan (1) DKA (diabetic ketoacidosis): Plan: Reason Critically Ill: 70-year-old female presents to the ICU with DKA, and severe metabolic acidosis Neuro - [facility] ICU: Negative Cardiac - HTNholding lisinopril in the setting of YELITZA Respiratory - Patient mildly tachypneic compensatory for metabolic acidosis Maintaining oxygen saturation on room air Continuous monitoring on pulse ox GI - Diabetic diet RENAL/LYTES - AKIcreatinine 2.47 with baseline 0.98. Suspect patient is significantly dehydrated in the setting of DKA and poor oral intake for the past 2 weeks -Continue IV fluid resuscitation -BMPs every 8 hours, monitor electrolytes -Avoid nephrotoxins renally adjust medications -Monitor - Foleystrict I's and O's ENDO - DKADM type 2, insulin-dependent patient -Proceed with DKA protocol -Trend BMPs and VBG's every 8 HypothyroidTSH within normal limits, continue Synthroid HEME - H&H stable, monitor routine CBCs ID - COVID-19patient with 14 days of symptoms and tested positive as outpatient 04/28. She has home quarantine for 2 weeks. Tested negative for COVID-19 today -We will maintain isolation precautions due to positive test on 04/28 -Currently maintaining oxygen saturation on room air no indication for supplemental O2 or steroids at this time -Previously vaccinated -Monitor Monitor fever curve LINES/IV ACCESS - Peripheral IVs DVT PROPHYLAXIS - SCDs, heparin I have personally spent 35 minutes of critical care time in the direct management of this patient. This is a life/limb threatening event. This includes time spent evaluating patient, direct bedside care, chart review, placing orders, interpretation of diagnostic studies, discussion with consultants, patient, and family members, as well as other required patient management activities. This time is exclusive of all separately billable procedures, and teaching time and separate from and in addition to any other critical care service time. (2) COVID-19: (3) Type 2 diabetes mellitus treated with insulin: (4) Hypothyroidism: (5) Hypertension: (6) Dyslipidemia: (7) Acute hyperkalemia: (8) YELITZA (acute kidney injury): (9) Glaucoma: (10) Nonproliferative diabetic retinopathy of both eyes: (11) Idiopathic polyneuropathy: Admission and Anticipated Discharge Date Admission Date: May 03, 2021 Subjective No overnight events Physical Exam Physical Exam: General: Alert. nontoxic. Skin: Warm, dry, Head: Atraumatic Ears, nose, mouth and throat: airway patent Cardiovascular: Normal peripheral perfusion Respiratory: no respiratory distress, mild tachypnea Gastrointestinal: Non distended Musculoskeletal: No deformity Results & Data Results & Data ([facility]) Vital Signs (Past 12 Hours) Vital Signs Temp Pulse Pulse Resp BP BP Pulse Ox 05/04/21 06:00 36.6 C 76 130/63 97 05/04/21 05:00 36.5 C 83 97 05/04/21 04:00 36.4 C L 80 120/64 99 05/04/21 03:00 36.2 C L 87 125/61 99 05/04/21 02:00 35.9 C L 93 H 125/73 99 05/04/21 01:00 96 H 121/66 100 05/04/21 00:00 95 H 123/75 100 05/03/21 23:51 95 H 24 121/58 L 100 Laboratory Results 05/04/21 05/04/21 05/04/21 Range/Units 09:12 08:34 08:34 WBC (4.8-10.8) K/uL RBC (4.2-5.4) M/uL Hgb (12.0-16.0) g/dL Hct (37-47) % MCV (80-100) fL MCH (25-34) pg MCHC (32-36) g/dL RDW Std Deviation (36.4-46.3) fL RDW Coeff of James (11.5-14.5) % Plt Count (130-400) K/uL MPV (7.4-10.4) fL Immature Gran % (Auto) % Neut % (Auto) % Lymph % (Auto) % [place] % (Auto) % Eos % (Auto) % Baso % (Auto) % Neut # (Auto) (1.4-6.5) K/uL Lymph # (Auto) (1.2-3.4) K/uL [place] # (Auto) (0.11-0.59) K/uL Eos # (Auto) (0-0.5) K/uL Baso # (Auto) (0-0.2) K/uL Immature Gran # (Auto) (0.00-0.02) K/uL Polychromasia Echinocytes ABG pH (7.35-7.45) ABG pCO2 (35-46) mmHg ABG pO2 (80-95) mmHg ABG HCO3 (19-24) mmol/L ABG O2 Saturation (90-95) % ABG Base Excess (-9-1.8) mEq/L Clinton Test (Pos) VBG pH 7.38 (7.36-7.41) Barometric Pressure mm/Hg Oxygen Given Sodium (136-145) mmol/L Potassium (3.5-5.1) mmol/L Chloride (98-107) mmol/L Carbon Dioxide (21-32) mmol/L Anion Gap (3-11) BUN (7-18) mg/dl Creatinine (0.6-1.2) mg/dl Est Cr Clr Drug Dosing ml/min Est GFR ( Amer) ml/min Est GFR (Non-Af Amer) ml/min BUN/Creatinine Ratio (10-20) Glucose (70-99) mg/dl POC Glucose 168 H (70-99) mg/dl Estimat Average Glucose Hemoglobin A1c Osmolality 302 H (280-300) mOsm/kg Lactate (0.4-2.0) mmol/L Calcium (8.5-10.1) mg/dl Phosphorus (2.5-4.9) mg/dl Magnesium (1.8-2.4) mg/dl Total Bilirubin (0.2-1) mg/dl Direct Bilirubin (0-0.2) mg/dl AST (15-37) U/L ALT (12-78) U/L Alkaline Phosphatase (45-117) U/L Troponin I (0-0.045) ng/ml Total Protein (6.4-8.2) gm/dl Albumin (3.4-5.0) gm/dl Globulin (2.5-4.0) gm/dl Albumin/Globulin Ratio (0.9-2) Lipase (73-393) U/L Beta-Hydroxybutyric Acd (0.2-2.81) mg/dl TSH (0.300-4.500) uIu/ml Urine Color Urine Appearance (Clear) Urine pH (4.5-7.5) Ur Specific [place] (1.000-1.030) Urine Protein (Negative) Urine Glucose (UA) (Negative) Urine Ketones (Negative) Urine Blood (Negative) Urine Nitrite (Negative) Urine Bilirubin (Negative) Urine Urobilinogen (Negative) Ur Leukocyte Esterase (Negative) Urine WBC (Auto) (0-5) /hpf Urine RBC (Auto) (0-4) /hpf U Hyaline Cast (Auto) (0-5) /lpf U Epithel Cells (Auto) (0-5) /lpf Urine Bacteria (Auto) (Negative) Granular Casts (0) /lpf Urine Yeast Urine Osmolality (500-800) mOsm/kg Nasal Screen MRSA (PCR) (Negative) COVID-19 Eval Order SARS-CoV-2 (PCR) (Negative) Hepatitis C Ab Screen 05/04/21 05/04/21 05/04/21 Range/Units 08:34 08:13 07:34 WBC (4.8-10.8) K/uL RBC (4.2-5.4) M/uL Hgb (12.0-16.0) g/dL Hct (37-47) % MCV (80-100) fL MCH (25-34) pg MCHC (32-36) g/dL RDW Std Deviation (36.4-46.3) fL RDW Coeff of James (11.5-14.5) % Plt Count (130-400) K/uL MPV (7.4-10.4) fL Immature Gran % (Auto) % Neut % (Auto) % Lymph % (Auto) % [place] % (Auto) % Eos % (Auto) % Baso % (Auto) % Neut # (Auto) (1.4-6.5) K/uL Lymph # (Auto) (1.2-3.4) K/uL [place] # (Auto) (0.11-0.59) K/uL Eos # (Auto) (0-0.5) K/uL Baso # (Auto) (0-0.2) K/uL Immature Gran # (Auto) (0.00-0.02) K/uL Polychromasia Echinocytes ABG pH (7.35-7.45) ABG pCO2 (35-46) mmHg ABG pO2 (80-95) mmHg ABG HCO3 (19-24) mmol/L ABG O2 Saturation (90-95) % ABG Base Excess (-9-1.8) mEq/L Clinton Test (Pos) VBG pH (7.36-7.41) Barometric Pressure mm/Hg Oxygen Given Sodium 134 L (136-145) mmol/L Potassium 4.2 (3.5-5.1) mmol/L Chloride 105 (98-107) mmol/L Carbon Dioxide 20 L (21-32) mmol/L Anion Gap 9.0 (3-11) BUN 50 H (7-18) mg/dl Creatinine 1.57 H (0.6-1.2) mg/dl Est Cr Clr Drug Dosing 40.6 ml/min Est GFR ( Amer) 38.6 ml/min Est GFR (Non-Af Amer) 33.3 ml/min BUN/Creatinine Ratio 31.7 H (10-20) Glucose 218 H (70-99) mg/dl POC Glucose 236 H 269 H (70-99) mg/dl Estimat Average Glucose Hemoglobin A1c Osmolality (280-300) mOsm/kg Lactate (0.4-2.0) mmol/L Calcium 8.6 (8.5-10.1) mg/dl Phosphorus Pending (2.5-4.9) mg/dl Magnesium 2.6 H (1.8-2.4) mg/dl Total Bilirubin (0.2-1) mg/dl Direct Bilirubin (0-0.2) mg/dl AST (15-37) U/L ALT (12-78) U/L Alkaline Phosphatase (45-117) U/L Troponin I (0-0.045) ng/ml Total Protein (6.4-8.2) gm/dl Albumin (3.4-5.0) gm/dl Globulin (2.5-4.0) gm/dl Albumin/Globulin Ratio (0.9-2) Lipase (73-393) U/L Beta-Hydroxybutyric Acd (0.2-2.81) mg/dl TSH (0.300-4.500) uIu/ml Urine Color Urine Appearance (Clear) Urine pH (4.5-7.5) Ur Specific [place] (1.000-1.030) Urine Protein (Negative) Urine Glucose (UA) (Negative) Urine Ketones (Negative) Urine Blood (Negative) Urine Nitrite (Negative) Urine Bilirubin (Negative) Urine Urobilinogen (Negative) Ur Leukocyte Esterase (Negative) Urine WBC (Auto) (0-5) /hpf Urine RBC (Auto) (0-4) /hpf U Hyaline Cast (Auto) (0-5) /lpf U Epithel Cells (Auto) (0-5) /lpf Urine Bacteria (Auto) (Negative) Granular Casts (0) /lpf Urine Yeast Urine Osmolality (500-800) mOsm/kg Nasal Screen MRSA (PCR) (Negative) COVID-19 Eval Order SARS-CoV-2 (PCR) (Negative) Hepatitis C Ab Screen 05/04/21 05/04/21 05/04/21 Range/Units 06:23 05:30 05:06 WBC 20.87 H (4.8-10.8) K/uL RBC 3.59 L (4.2-5.4) M/uL Hgb 11.4 L D (12.0-16.0) g/dL Hct 32.9 L (37-47) % MCV 91.6 D (80-100) fL MCH 31.8 (25-34) pg MCHC 34.7 (32-36) g/dL RDW Std Deviation 39.8 (36.4-46.3) fL RDW Coeff of James 11.7 (11.5-14.5) % Plt Count 322 (130-400) K/uL MPV 10.5 H (7.4-10.4) fL Immature Gran % (Auto) 0.5 % Neut % (Auto) 79.8 % Lymph % (Auto) 11.1 % [place] % (Auto) 8.5 % Eos % (Auto) 0.0 % Baso % (Auto) 0.1 % Neut # (Auto) 16.64 H (1.4-6.5) K/uL Lymph # (Auto) 2.32 (1.2-3.4) K/uL [place] # (Auto) 1.78 H (0.11-0.59) K/uL Eos # (Auto) 0.00 (0-0.5) K/uL Baso # (Auto) 0.02 (0-0.2) K/uL Immature Gran # (Auto) 0.11 H (0.00-0.02) K/uL Polychromasia Echinocytes ABG pH (7.35-7.45) ABG pCO2 (35-46) mmHg ABG pO2 (80-95) mmHg ABG HCO3 (19-24) mmol/L ABG O2 Saturation (90-95) % ABG Base Excess (-9-1.8) mEq/L Clinton Test (Pos) VBG pH (7.36-7.41) Barometric Pressure mm/Hg Oxygen Given Sodium (136-145) mmol/L Potassium (3.5-5.1) mmol/L Chloride (98-107) mmol/L Carbon Dioxide (21-32) mmol/L Anion Gap (3-11) BUN (7-18) mg/dl Creatinine (0.6-1.2) mg/dl Est Cr Clr Drug Dosing ml/min Est GFR ( Amer) ml/min Est GFR (Non-Af Amer) ml/min BUN/Creatinine Ratio (10-20) Glucose (70-99) mg/dl POC Glucose 408 H* 469 H* (70-99) mg/dl Estimat Average Glucose Hemoglobin A1c Osmolality (280-300) mOsm/kg Lactate (0.4-2.0) mmol/L Calcium (8.5-10.1) mg/dl Phosphorus (2.5-4.9) mg/dl Magnesium (1.8-2.4) mg/dl Total Bilirubin (0.2-1) mg/dl Direct Bilirubin (0-0.2) mg/dl AST (15-37) U/L ALT (12-78) U/L Alkaline Phosphatase (45-117) U/L Troponin I (0-0.045) ng/ml Total Protein (6.4-8.2) gm/dl Albumin (3.4-5.0) gm/dl Globulin (2.5-4.0) gm/dl Albumin/Globulin Ratio (0.9-2) Lipase (73-393) U/L Beta-Hydroxybutyric Acd (0.2-2.81) mg/dl TSH (0.300-4.500) uIu/ml Urine Color Urine Appearance (Clear) Urine pH (4.5-7.5) Ur Specific [place] (1.000-1.030) Urine Protein (Negative) Urine Glucose (UA) (Negative) Urine Ketones (Negative) Urine Blood (Negative) Urine Nitrite (Negative) Urine Bilirubin (Negative) Urine Urobilinogen (Negative) Ur Leukocyte Esterase (Negative) Urine WBC (Auto) (0-5) /hpf Urine RBC (Auto) (0-4) /hpf U Hyaline Cast (Auto) (0-5) /lpf U Epithel Cells (Auto) (0-5) /lpf Urine Bacteria (Auto) (Negative) Granular Casts (0) /lpf Urine Yeast Urine Osmolality (500-800) mOsm/kg Nasal Screen MRSA (PCR) (Negative) COVID-19 Eval Order SARS-CoV-2 (PCR) (Negative) Hepatitis C Ab Screen 05/04/21 05/04/21 05/04/21 Range/Units 05:05 05:05 05:05 WBC (4.8-10.8) K/uL RBC (4.2-5.4) M/uL Hgb (12.0-16.0) g/dL Hct (37-47) % MCV (80-100) fL MCH (25-34) pg MCHC (32-36) g/dL RDW Std Deviation (36.4-46.3) fL RDW Coeff of James (11.5-14.5) % Plt Count (130-400) K/uL MPV (7.4-10.4) fL Immature Gran % (Auto) % Neut % (Auto) % Lymph % (Auto) % [place] % (Auto) % Eos % (Auto) % Baso % (Auto) % Neut # (Auto) (1.4-6.5) K/uL Lymph # (Auto) (1.2-3.4) K/uL [place] # (Auto) (0.11-0.59) K/uL Eos # (Auto) (0-0.5) K/uL Baso # (Auto) (0-0.2) K/uL Immature Gran # (Auto) (0.00-0.02) K/uL Polychromasia Echinocytes ABG pH (7.35-7.45) ABG pCO2 (35-46) mmHg ABG pO2 (80-95) mmHg ABG HCO3 (19-24) mmol/L ABG O2 Saturation (90-95) % ABG Base Excess (-9-1.8) mEq/L Clinton Test (Pos) VBG pH 7.35 L (7.36-7.41) Barometric Pressure mm/Hg Oxygen Given Sodium (136-145) mmol/L Potassium (3.5-5.1) mmol/L Chloride (98-107) mmol/L Carbon Dioxide (21-32) mmol/L Anion Gap (3-11) BUN (7-18) mg/dl Creatinine (0.6-1.2) mg/dl Est Cr Clr Drug Dosing ml/min Est GFR ( Amer) ml/min Est GFR (Non-Af Amer) ml/min BUN/Creatinine Ratio (10-20) Glucose (70-99) mg/dl POC Glucose (70-99) mg/dl Estimat Average Glucose Hemoglobin A1c Osmolality (280-300) mOsm/kg Lactate 2.3 H* (0.4-2.0) mmol/L Calcium (8.5-10.1) mg/dl Phosphorus (2.5-4.9) mg/dl Magnesium (1.8-2.4) mg/dl Total Bilirubin 0.6 (0.2-1) mg/dl Direct Bilirubin 0.2 (0-0.2) mg/dl AST 29 (15-37) U/L ALT 30 (12-78) U/L Alkaline Phosphatase 180 H (45-117) U/L Troponin I (0-0.045) ng/ml Total Protein 7.5 (6.4-8.2) gm/dl Albumin 2.6 L (3.4-5.0) gm/dl Globulin (2.5-4.0) gm/dl Albumin/Globulin Ratio (0.9-2) Lipase (73-393) U/L Beta-Hydroxybutyric Acd (0.2-2.81) mg/dl TSH (0.300-4.500) uIu/ml Urine Color Urine Appearance (Clear) Urine pH (4.5-7.5) Ur Specific [place] (1.000-1.030) Urine Protein (Negative) Urine Glucose (UA) (Negative) Urine Ketones (Negative) Urine Blood (Negative) Urine Nitrite (Negative) Urine Bilirubin (Negative) Urine Urobilinogen (Negative) Ur Leukocyte Esterase (Negative) Urine WBC (Auto) (0-5) /hpf Urine RBC (Auto) (0-4) /hpf U Hyaline Cast (Auto) (0-5) /lpf U Epithel Cells (Auto) (0-5) /lpf Urine Bacteria (Auto) (Negative) Granular Casts (0) /lpf Urine Yeast Urine Osmolality (500-800) mOsm/kg Nasal Screen MRSA (PCR) (Negative) COVID-19 Eval Order SARS-CoV-2 (PCR) (Negative) Hepatitis C Ab Screen 05/04/21 05/04/21 05/04/21 Range/Units 05:05 05:05 04:13 WBC (4.8-10.8) K/uL RBC (4.2-5.4) M/uL Hgb (12.0-16.0) g/dL Hct (37-47) % MCV (80-100) fL MCH (25-34) pg MCHC (32-36) g/dL RDW Std Deviation (36.4-46.3) fL RDW Coeff of James (11.5-14.5) % Plt Count (130-400) K/uL MPV (7.4-10.4) fL Immature Gran % (Auto) % Neut % (Auto) % Lymph % (Auto) % [place] % (Auto) % Eos % (Auto) % Baso % (Auto) % Neut # (Auto) (1.4-6.5) K/uL Lymph # (Auto) (1.2-3.4) K/uL [place] # (Auto) (0.11-0.59) K/uL Eos # (Auto) (0-0.5) K/uL Baso # (Auto) (0-0.2) K/uL Immature Gran # (Auto) (0.00-0.02) K/uL Polychromasia Echinocytes ABG pH (7.35-7.45) ABG pCO2 (35-46) mmHg ABG pO2 (80-95) mmHg ABG HCO3 (19-24) mmol/L ABG O2 Saturation (90-95) % ABG Base Excess (-9-1.8) mEq/L Clinton Test (Pos) VBG pH (7.36-7.41) Barometric Pressure mm/Hg Oxygen Given Sodium 130 L (136-145) mmol/L Potassium 4.5 (3.5-5.1) mmol/L Chloride 101 (98-107) mmol/L Carbon Dioxide 15 L (21-32) mmol/L Anion Gap 14.0 H (3-11) BUN 57 H (7-18) mg/dl Creatinine 1.86 H (0.6-1.2) mg/dl Est Cr Clr Drug Dosing 34.3 ml/min Est GFR ( Amer) 31.4 ml/min Est GFR (Non-Af Amer) 27.1 ml/min BUN/Creatinine Ratio 30.8 H (10-20) Glucose 469 H* (70-99) mg/dl POC Glucose 571 H* (70-99) mg/dl Estimat Average Glucose Hemoglobin A1c Osmolality 323 H (280-300) mOsm/kg Lactate (0.4-2.0) mmol/L Calcium 8.5 (8.5-10.1) mg/dl Phosphorus 2.1 L D (2.5-4.9) mg/dl Magnesium 2.7 H (1.8-2.4) mg/dl Total Bilirubin (0.2-1) mg/dl Direct Bilirubin (0-0.2) mg/dl AST (15-37) U/L ALT (12-78) U/L Alkaline Phosphatase (45-117) U/L Troponin I (0-0.045) ng/ml Total Protein (6.4-8.2) gm/dl Albumin (3.4-5.0) gm/dl Globulin (2.5-4.0) gm/dl Albumin/Globulin Ratio (0.9-2) Lipase (73-393) U/L Beta-Hydroxybutyric Acd 37.76 H (0.2-2.81) mg/dl TSH (0.300-4.500) uIu/ml Urine Color Urine Appearance (Clear) Urine pH (4.5-7.5) Ur Specific [place] (1.000-1.030) Urine Protein (Negative) Urine Glucose (UA) (Negative) Urine Ketones (Negative) Urine Blood (Negative) Urine Nitrite (Negative) Urine Bilirubin (Negative) Urine Urobilinogen (Negative) Ur Leukocyte Esterase (Negative) Urine WBC (Auto) (0-5) /hpf Urine RBC (Auto) (0-4) /hpf U Hyaline Cast (Auto) (0-5) /lpf U Epithel Cells (Auto) (0-5) /lpf Urine Bacteria (Auto) (Negative) Granular Casts (0) /lpf Urine Yeast Urine Osmolality (500-800) mOsm/kg Nasal Screen MRSA (PCR) (Negative) COVID-19 Eval Order SARS-CoV-2 (PCR) (Negative) Hepatitis C Ab Screen 05/04/21 05/04/21 05/04/21 Range/Units 01:53 01:38 01:38 WBC (4.8-10.8) K/uL RBC (4.2-5.4) M/uL Hgb (12.0-16.0) g/dL Hct (37-47) % MCV (80-100) fL MCH (25-34) pg MCHC (32-36) g/dL RDW Std Deviation (36.4-46.3) fL RDW Coeff of James (11.5-14.5) % Plt Count (130-400) K/uL MPV (7.4-10.4) fL Immature Gran % (Auto) % Neut % (Auto) % Lymph % (Auto) % [place] % (Auto) % Eos % (Auto) % Baso % (Auto) % Neut # (Auto) (1.4-6.5) K/uL Lymph # (Auto) (1.2-3.4) K/uL [place] # (Auto) (0.11-0.59) K/uL Eos # (Auto) (0-0.5) K/uL Baso # (Auto) (0-0.2) K/uL Immature Gran # (Auto) (0.00-0.02) K/uL Polychromasia Echinocytes ABG pH (7.35-7.45) ABG pCO2 (35-46) mmHg ABG pO2 (80-95) mmHg ABG HCO3 (19-24) mmol/L ABG O2 Saturation (90-95) % ABG Base Excess (-9-1.8) mEq/L Clinton Test (Pos) VBG pH (7.36-7.41) Barometric Pressure mm/Hg Oxygen Given Sodium (136-145) mmol/L Potassium (3.5-5.1) mmol/L Chloride (98-107) mmol/L Carbon Dioxide (21-32) mmol/L Anion Gap (3-11) BUN (7-18) mg/dl Creatinine (0.6-1.2) mg/dl Est Cr Clr Drug Dosing ml/min Est GFR ( Amer) ml/min Est GFR (Non-Af Amer) ml/min BUN/Creatinine Ratio (10-20) Glucose 817 H* (70-99) mg/dl POC Glucose (70-99) mg/dl Estimat Average Glucose Hemoglobin A1c Osmolality (280-300) mOsm/kg Lactate (0.4-2.0) mmol/L Calcium (8.5-10.1) mg/dl Phosphorus (2.5-4.9) mg/dl Magnesium (1.8-2.4) mg/dl Total Bilirubin (0.2-1) mg/dl Direct Bilirubin (0-0.2) mg/dl AST (15-37) U/L ALT (12-78) U/L Alkaline Phosphatase (45-117) U/L Troponin I (0-0.045) ng/ml Total Protein (6.4-8.2) gm/dl Albumin (3.4-5.0) gm/dl Globulin (2.5-4.0) gm/dl Albumin/Globulin Ratio (0.9-2) Lipase (73-393) U/L Beta-Hydroxybutyric Acd 102.65 H (0.2-2.81) mg/dl TSH (0.300-4.500) uIu/ml Urine Color Yellow Urine Appearance Cloudy A (Clear) Urine pH 5.0 (4.5-7.5) Ur Specific [place] 1.024 (1.000-1.030) Urine Protein 1+ H (Negative) Urine Glucose (UA) 3+ H (Negative) Urine Ketones 2+ H (Negative) Urine Blood 2+ H (Negative) Urine Nitrite Negative (Negative) Urine Bilirubin Negative (Negative) Urine Urobilinogen Negative (Negative) Ur Leukocyte Esterase Negative (Negative) Urine WBC (Auto) 5-10 H (0-5) /hpf Urine RBC (Auto) 0-4 (0-4) /hpf U Hyaline Cast (Auto) 1-5 (0-5) /lpf U Epithel Cells (Auto) >30 H (0-5) /lpf Urine Bacteria (Auto) Negative (Negative) Granular Casts 10-20 H (0) /lpf Urine Yeast Not Reportable Urine Osmolality 464 L (500-800) mOsm/kg Nasal Screen MRSA (PCR) (Negative) COVID-19 Eval Order SARS-CoV-2 (PCR) (Negative) Hepatitis C Ab Screen 05/04/21 05/04/21 05/04/21 Range/Units 00:42 00:42 00:42 WBC (4.8-10.8) K/uL RBC (4.2-5.4) M/uL Hgb (12.0-16.0) g/dL Hct (37-47) % MCV (80-100) fL MCH (25-34) pg MCHC (32-36) g/dL RDW Std Deviation (36.4-46.3) fL RDW Coeff of James (11.5-14.5) % Plt Count (130-400) K/uL MPV (7.4-10.4) fL Immature Gran % (Auto) % Neut % (Auto) % Lymph % (Auto) % [place] % (Auto) % Eos % (Auto) % Baso % (Auto) % Neut # (Auto) (1.4-6.5) K/uL Lymph # (Auto) (1.2-3.4) K/uL [place] # (Auto) (0.11-0.59) K/uL Eos # (Auto) (0-0.5) K/uL Baso # (Auto) (0-0.2) K/uL Immature Gran # (Auto) (0.00-0.02) K/uL Polychromasia Echinocytes ABG pH (7.35-7.45) ABG pCO2 (35-46) mmHg ABG pO2 (80-95) mmHg ABG HCO3 (19-24) mmol/L ABG O2 Saturation (90-95) % ABG Base Excess (-9-1.8) mEq/L [place] Test (Pos) VBG pH 7.16 L (7.36-7.41) Barometric Pressure mm/Hg Oxygen Given Sodium (136-145) mmol/L Potassium (3.5-5.1) mmol/L Chloride (98-107) mmol/L Carbon Dioxide (21-32) mmol/L Anion Gap (3-11) BUN (7-18) mg/dl Creatinine (0.6-1.2) mg/dl Est Cr Clr Drug Dosing ml/min Est GFR ( Amer) ml/min Est GFR (Non-Af Amer) ml/min BUN/Creatinine Ratio (10-20) Glucose (70-99) mg/dl POC Glucose (70-99) mg/dl Estimat Average Glucose Hemoglobin A1c Osmolality 344 H (280-300) mOsm/kg Lactate 2.1 H* (0.4-2.0) mmol/L Calcium (8.5-10.1) mg/dl Phosphorus (2.5-4.9) mg/dl Magnesium (1.8-2.4) mg/dl Total Bilirubin (0.2-1) mg/dl Direct Bilirubin (0-0.2) mg/dl AST (15-37) U/L ALT (12-78) U/L Alkaline Phosphatase (45-117) U/L Troponin I (0-0.045) ng/ml Total Protein (6.4-8.2) gm/dl Albumin (3.4-5.0) gm/dl Globulin (2.5-4.0) gm/dl Albumin/Globulin Ratio (0.9-2) Lipase (73-393) U/L Beta-Hydroxybutyric Acd (0.2-2.81) mg/dl TSH (0.300-4.500) uIu/ml Urine Color Urine Appearance (Clear) Urine pH (4.5-7.5) Ur Specific [place] (1.000-1.030) Urine Protein (Negative) Urine Glucose (UA) (Negative) Urine Ketones (Negative) Urine Blood (Negative) Urine Nitrite (Negative) Urine Bilirubin (Negative) Urine Urobilinogen (Negative) Ur Leukocyte Esterase (Negative) Urine WBC (Auto) (0-5) /hpf Urine RBC (Auto) (0-4) /hpf U Hyaline Cast (Auto) (0-5) /lpf U Epithel Cells (Auto) (0-5) /lpf Urine Bacteria (Auto) (Negative) Granular Casts (0) /lpf Urine Yeast Urine Osmolality (500-800) mOsm/kg Nasal Screen MRSA (PCR) (Negative) COVID-19 Eval Order SARS-CoV-2 (PCR) (Negative) Hepatitis C Ab Screen 05/04/21 05/04/21 05/03/21 Range/Units 00:42 00:42 23:40 WBC (4.8-10.8) K/uL RBC (4.2-5.4) M/uL Hgb (12.0-16.0) g/dL Hct (37-47) % MCV (80-100) fL MCH (25-34) pg MCHC (32-36) g/dL RDW Std Deviation (36.4-46.3) fL RDW Coeff of James (11.5-14.5) % Plt Count (130-400) K/uL MPV (7.4-10.4) fL Immature Gran % (Auto) % Neut % (Auto) % Lymph % (Auto) % [place] % (Auto) % Eos % (Auto) % Baso % (Auto) % Neut # (Auto) (1.4-6.5) K/uL Lymph # (Auto) (1.2-3.4) K/uL [place] # (Auto) (0.11-0.59) K/uL Eos # (Auto) (0-0.5) K/uL Baso # (Auto) (0-0.2) K/uL Immature Gran # (Auto) (0.00-0.02) K/uL Polychromasia Echinocytes ABG pH (7.35-7.45) ABG pCO2 (35-46) mmHg ABG pO2 (80-95) mmHg ABG HCO3 (19-24) mmol/L ABG O2 Saturation (90-95) % ABG Base Excess (-9-1.8) mEq/L [place] Test (Pos) VBG pH (7.36-7.41) Barometric Pressure mm/Hg Oxygen Given Sodium 126 L (136-145) mmol/L Potassium 4.7 (3.5-5.1) mmol/L Chloride 92 L (98-107) mmol/L Carbon Dioxide 6 L* (21-32) mmol/L Anion Gap 28.0 H (3-11) BUN 62 H (7-18) mg/dl Creatinine 2.15 H (0.6-1.2) mg/dl Est Cr Clr Drug Dosing 29.7 ml/min Est GFR ( Amer) 26.4 ml/min Est GFR (Non-Af Amer) 22.8 ml/min BUN/Creatinine Ratio 28.9 H (10-20) Glucose 850 H* (70-99) mg/dl POC Glucose (70-99) mg/dl Estimat Average Glucose Hemoglobin A1c Osmolality (280-300) mOsm/kg Lactate (0.4-2.0) mmol/L Calcium 8.4 L (8.5-10.1) mg/dl Phosphorus 5.8 H (2.5-4.9) mg/dl Magnesium 2.8 H (1.8-2.4) mg/dl Total Bilirubin (0.2-1) mg/dl Direct Bilirubin (0-0.2) mg/dl AST (15-37) U/L ALT (12-78) U/L Alkaline Phosphatase (45-117) U/L Troponin I (0-0.045) ng/ml Total Protein (6.4-8.2) gm/dl Albumin (3.4-5.0) gm/dl Globulin (2.5-4.0) gm/dl Albumin/Globulin Ratio (0.9-2) Lipase 309 (73-393) U/L Beta-Hydroxybutyric Acd 119.41 H (0.2-2.81) mg/dl TSH (0.300-4.500) uIu/ml Urine Color Urine Appearance (Clear) Urine pH (4.5-7.5) Ur Specific [place] (1.000-1.030) Urine Protein (Negative) Urine Glucose (UA) (Negative) Urine Ketones (Negative) Urine Blood (Negative) Urine Nitrite (Negative) Urine Bilirubin (Negative) Urine Urobilinogen (Negative) Ur Leukocyte Esterase (Negative) Urine WBC (Auto) (0-5) /hpf Urine RBC (Auto) (0-4) /hpf U Hyaline Cast (Auto) (0-5) /lpf U Epithel Cells (Auto) (0-5) /lpf Urine Bacteria (Auto) (Negative) Granular Casts (0) /lpf Urine Yeast Urine Osmolality (500-800) mOsm/kg Nasal Screen MRSA (PCR) Negative (Negative) COVID-19 Eval Order SARS-CoV-2 (PCR) (Negative) Hepatitis C Ab Screen Pending 05/03/21 05/03/21 05/03/21 Range/Units 23:17 23:07 21:57 WBC (4.8-10.8) K/uL RBC (4.2-5.4) M/uL Hgb (12.0-16.0) g/dL Hct (37-47) % MCV (80-100) fL MCH (25-34) pg MCHC (32-36) g/dL RDW Std Deviation (36.4-46.3) fL RDW Coeff of James (11.5-14.5) % Plt Count (130-400) K/uL MPV (7.4-10.4) fL Immature Gran % (Auto) % Neut % (Auto) % Lymph % (Auto) % [place] % (Auto) % Eos % (Auto) % Baso % (Auto) % Neut # (Auto) (1.4-6.5) K/uL Lymph # (Auto) (1.2-3.4) K/uL [place] # (Auto) (0.11-0.59) K/uL Eos # (Auto) (0-0.5) K/uL Baso # (Auto) (0-0.2) K/uL Immature Gran # (Auto) (0.00-0.02) K/uL Polychromasia Echinocytes ABG pH 7.07 L* (7.35-7.45) ABG pCO2 17 L (35-46) mmHg ABG pO2 141 H (80-95) mmHg ABG HCO3 5 L (19-24) mmol/L ABG O2 Saturation 98.4 H (90-95) % ABG Base Excess -23.5 L (-9-1.8) mEq/L [place] Test Pos (Pos) VBG pH (7.36-7.41) Barometric Pressure 735.9 mm/Hg Oxygen Given ROOM AIR Sodium 125 L D (136-145) mmol/L Potassium 4.9 D (3.5-5.1) mmol/L Chloride 89 L (98-107) mmol/L Carbon Dioxide 6 L* (21-32) mmol/L Anion Gap 30.0 H (3-11) BUN 62 H (7-18) mg/dl Creatinine 2.38 H (0.6-1.2) mg/dl Est Cr Clr Drug Dosing 27.2 ml/min Est GFR ( Amer) 23.3 ml/min Est GFR (Non-Af Amer) 20.1 ml/min BUN/Creatinine Ratio 26.1 H (10-20) Glucose 961 H* (70-99) mg/dl POC Glucose > 600 H* (70-99) mg/dl Estimat Average Glucose Hemoglobin A1c Osmolality (280-300) mOsm/kg Lactate (0.4-2.0) mmol/L Calcium 8.7 (8.5-10.1) mg/dl Phosphorus (2.5-4.9) mg/dl Magnesium (1.8-2.4) mg/dl Total Bilirubin (0.2-1) mg/dl Direct Bilirubin (0-0.2) mg/dl AST (15-37) U/L ALT (12-78) U/L Alkaline Phosphatase (45-117) U/L Troponin I (0-0.045) ng/ml Total Protein (6.4-8.2) gm/dl Albumin (3.4-5.0) gm/dl Globulin (2.5-4.0) gm/dl Albumin/Globulin Ratio (0.9-2) Lipase (73-393) U/L Beta-Hydroxybutyric Acd 127.90 H (0.2-2.81) mg/dl TSH (0.300-4.500) uIu/ml Urine Color Urine Appearance (Clear) Urine pH (4.5-7.5) Ur Specific [place] (1.000-1.030) Urine Protein (Negative) Urine Glucose (UA) (Negative) Urine Ketones (Negative) Urine Blood (Negative) Urine Nitrite (Negative) Urine Bilirubin (Negative) Urine Urobilinogen (Negative) Ur Leukocyte Esterase (Negative) Urine WBC (Auto) (0-5) /hpf Urine RBC (Auto) (0-4) /hpf U Hyaline Cast (Auto) (0-5) /lpf U Epithel Cells (Auto) (0-5) /lpf Urine Bacteria (Auto) (Negative) Granular Casts (0) /lpf Urine Yeast Urine Osmolality (500-800) mOsm/kg Nasal Screen MRSA (PCR) (Negative) COVID-19 Eval Order SARS-CoV-2 (PCR) (Negative) Hepatitis C Ab Screen 05/03/21 05/03/21 05/03/21 Range/Units 21:57 21:23 21:23 WBC (4.8-10.8) K/uL RBC (4.2-5.4) M/uL Hgb (12.0-16.0) g/dL Hct (37-47) % MCV (80-100) fL MCH (25-34) pg MCHC (32-36) g/dL RDW Std Deviation (36.4-46.3) fL RDW Coeff of James (11.5-14.5) % Plt Count (130-400) K/uL MPV (7.4-10.4) fL Immature Gran % (Auto) % Neut % (Auto) % Lymph % (Auto) % [place] % (Auto) % Eos % (Auto) % Baso % (Auto) % Neut # (Auto) (1.4-6.5) K/uL Lymph # (Auto) (1.2-3.4) K/uL [place] # (Auto) (0.11-0.59) K/uL Eos # (Auto) (0-0.5) K/uL Baso # (Auto) (0-0.2) K/uL Immature Gran # (Auto) (0.00-0.02) K/uL Polychromasia Echinocytes ABG pH (7.35-7.45) ABG pCO2 (35-46) mmHg ABG pO2 (80-95) mmHg ABG HCO3 (19-24) mmol/L ABG O2 Saturation (90-95) % ABG Base Excess (-9-1.8) mEq/L Clinton Test (Pos) VBG pH (7.36-7.41) Barometric Pressure mm/Hg Oxygen Given Sodium (136-145) mmol/L Potassium (3.5-5.1) mmol/L Chloride (98-107) mmol/L Carbon Dioxide (21-32) mmol/L Anion Gap (3-11) BUN (7-18) mg/dl Creatinine (0.6-1.2) mg/dl Est Cr Clr Drug Dosing ml/min Est GFR ( Amer) ml/min Est GFR (Non-Af Amer) ml/min BUN/Creatinine Ratio (10-20) Glucose (70-99) mg/dl POC Glucose (70-99) mg/dl Estimat Average Glucose Pending Hemoglobin A1c Pending Osmolality (280-300) mOsm/kg Lactate (0.4-2.0) mmol/L Calcium (8.5-10.1) mg/dl Phosphorus (2.5-4.9) mg/dl Magnesium (1.8-2.4) mg/dl Total Bilirubin (0.2-1) mg/dl Direct Bilirubin (0-0.2) mg/dl AST (15-37) U/L ALT (12-78) U/L Alkaline Phosphatase (45-117) U/L Troponin I (0-0.045) ng/ml Total Protein (6.4-8.2) gm/dl Albumin (3.4-5.0) gm/dl Globulin (2.5-4.0) gm/dl Albumin/Globulin Ratio (0.9-2) Lipase (73-393) U/L Beta-Hydroxybutyric Acd (0.2-2.81) mg/dl TSH (0.300-4.500) uIu/ml Urine Color Urine Appearance (Clear) Urine pH (4.5-7.5) Ur Specific [place] (1.000-1.030) Urine Protein (Negative) Urine Glucose (UA) (Negative) Urine Ketones (Negative) Urine Blood (Negative) Urine Nitrite (Negative) Urine Bilirubin (Negative) Urine Urobilinogen (Negative) Ur Leukocyte Esterase (Negative) Urine WBC (Auto) (0-5) /hpf Urine RBC (Auto) (0-4) /hpf U Hyaline Cast (Auto) (0-5) /lpf U Epithel Cells (Auto) (0-5) /lpf Urine Bacteria (Auto) (Negative) Granular Casts (0) /lpf Urine Yeast Urine Osmolality (500-800) mOsm/kg Nasal Screen MRSA (PCR) (Negative) COVID-19 Eval Order Covid19 at [facility] SARS-CoV-2 (PCR) NEGATIVE (Negative) Hepatitis C Ab Screen 05/03/21 05/03/21 05/03/21 Range/Units 20:40 20:40 20:40 WBC 17.25 H (4.8-10.8) K/uL RBC 4.96 (4.2-5.4) M/uL Hgb 15.4 (12.0-16.0) g/dL Hct 49.4 H (37-47) % MCV 99.6 (80-100) fL MCH 31.0 (25-34) pg MCHC 31.2 L (32-36) g/dL RDW Std Deviation (36.4-46.3) fL RDW Coeff of James (11.5-14.5) % Plt Count 335 (130-400) K/uL MPV (7.4-10.4) fL Immature Gran % (Auto) 0.2 % Neut % (Auto) 83.0 % Lymph % (Auto) 10.6 % [place] % (Auto) 6.0 % Eos % (Auto) 0.1 % Baso % (Auto) 0.1 % Neut # (Auto) 14.32 H (1.4-6.5) K/uL Lymph # (Auto) 1.83 (1.2-3.4) K/uL [place] # (Auto) 1.04 H (0.11-0.59) K/uL Eos # (Auto) 0.01 (0-0.5) K/uL Baso # (Auto) 0.01 (0-0.2) K/uL Immature Gran # (Auto) 0.04 H (0.00-0.02) K/uL Polychromasia 1+ Echinocytes 1+ ABG pH (7.35-7.45) ABG pCO2 (35-46) mmHg ABG pO2 (80-95) mmHg ABG HCO3 (19-24) mmol/L ABG O2 Saturation (90-95) % ABG Base Excess (-9-1.8) mEq/L Clinton Test (Pos) VBG pH (7.36-7.41) Barometric Pressure mm/Hg Oxygen Given Sodium 118 L* (136-145) mmol/L Potassium 6.8 H* (3.5-5.1) mmol/L Chloride 84 L (98-107) mmol/L Carbon Dioxide 5 L* (21-32) mmol/L Anion Gap 30.0 H (3-11) BUN 61 H (7-18) mg/dl Creatinine 2.47 H (0.6-1.2) mg/dl Est Cr Clr Drug Dosing 26.3 ml/min Est GFR ( Amer) 22.3 ml/min Est GFR (Non-Af Amer) 19.2 ml/min BUN/Creatinine Ratio 24.8 H (10-20) Glucose 1101 H* (70-99) mg/dl POC Glucose (70-99) mg/dl Estimat Average Glucose Hemoglobin A1c Osmolality 361 H* (280-300) mOsm/kg Lactate (0.4-2.0) mmol/L Calcium 9.1 (8.5-10.1) mg/dl Phosphorus (2.5-4.9) mg/dl Magnesium 3.0 H (1.8-2.4) mg/dl Total Bilirubin 0.7 (0.2-1) mg/dl Direct Bilirubin (0-0.2) mg/dl AST 26 (15-37) U/L ALT 31 (12-78) U/L Alkaline Phosphatase 221 H (45-117) U/L Troponin I < 0.015 (0-0.045) ng/ml Total Protein 8.7 H (6.4-8.2) gm/dl Albumin 3.1 L (3.4-5.0) gm/dl Globulin 5.6 H (2.5-4.0) gm/dl Albumin/Globulin Ratio 0.5 L (0.9-2) Lipase (73-393) U/L Beta-Hydroxybutyric Acd 139.25 H (0.2-2.81) mg/dl TSH 0.625 (0.300-4.500) uIu/ml Urine Color Urine Appearance (Clear) Urine pH (4.5-7.5) Ur Specific [place] (1.000-1.030) Urine Protein (Negative) Urine Glucose (UA) (Negative) Urine Ketones (Negative) Urine Blood (Negative) Urine Nitrite (Negative) Urine Bilirubin (Negative) Urine Urobilinogen (Negative) Ur Leukocyte Esterase (Negative) Urine WBC (Auto) (0-5) /hpf Urine RBC (Auto) (0-4) /hpf U Hyaline Cast (Auto) (0-5) /lpf U Epithel Cells (Auto) (0-5) /lpf Urine Bacteria (Auto) (Negative) Granular Casts (0) /lpf Urine Yeast Urine Osmolality (500-800) mOsm/kg Nasal Screen MRSA (PCR) (Negative) COVID-19 Eval Order SARS-CoV-2 (PCR) (Negative) Hepatitis C Ab Screen 05/03/21 Range/Units 20:31 WBC (4.8-10.8) K/uL RBC (4.2-5.4) M/uL Hgb (12.0-16.0) g/dL Hct (37-47) % MCV (80-100) fL MCH (25-34) pg MCHC (32-36) g/dL RDW Std Deviation (36.4-46.3) fL RDW Coeff of James (11.5-14.5) % Plt Count (130-400) K/uL MPV (7.4-10.4) fL Immature Gran % (Auto) % Neut % (Auto) % Lymph % (Auto) % [place] % (Auto) % Eos % (Auto) % Baso % (Auto) % Neut # (Auto) (1.4-6.5) K/uL Lymph # (Auto) (1.2-3.4) K/uL [place] # (Auto) (0.11-0.59) K/uL Eos # (Auto) (0-0.5) K/uL Baso # (Auto) (0-0.2) K/uL Immature Gran # (Auto) (0.00-0.02) K/uL Polychromasia Echinocytes ABG pH (7.35-7.45) ABG pCO2 (35-46) mmHg ABG pO2 (80-95) mmHg ABG HCO3 (19-24) mmol/L ABG O2 Saturation (90-95) % ABG Base Excess (-9-1.8) mEq/L Clinton Test (Pos) VBG pH (7.36-7.41) Barometric Pressure mm/Hg Oxygen Given Sodium (136-145) mmol/L Potassium (3.5-5.1) mmol/L Chloride (98-107) mmol/L Carbon Dioxide (21-32) mmol/L Anion Gap (3-11) BUN (7-18) mg/dl Creatinine (0.6-1.2) mg/dl Est Cr Clr Drug Dosing ml/min Est GFR ( Amer) ml/min Est GFR (Non-Af Amer) ml/min BUN/Creatinine Ratio (10-20) Glucose (70-99) mg/dl POC Glucose > 600 H* (70-99) mg/dl Estimat Average Glucose Hemoglobin A1c Osmolality (280-300) mOsm/kg Lactate (0.4-2.0) mmol/L Calcium (8.5-10.1) mg/dl Phosphorus (2.5-4.9) mg/dl Magnesium (1.8-2.4) mg/dl Total Bilirubin (0.2-1) mg/dl Direct Bilirubin (0-0.2) mg/dl AST (15-37) U/L ALT (12-78) U/L Alkaline Phosphatase (45-117) U/L Troponin I (0-0.045) ng/ml Total Protein (6.4-8.2) gm/dl Albumin (3.4-5.0) gm/dl Globulin (2.5-4.0) gm/dl Albumin/Globulin Ratio (0.9-2) Lipase (73-393) U/L Beta-Hydroxybutyric Acd (0.2-2.81) mg/dl TSH (0.300-4.500) uIu/ml Urine Color Urine Appearance (Clear) Urine pH (4.5-7.5) Ur Specific [place] (1.000-1.030) Urine Protein (Negative) Urine Glucose (UA) (Negative) Urine Ketones (Negative) Urine Blood (Negative) Urine Nitrite (Negative) Urine Bilirubin (Negative) Urine Urobilinogen (Negative) Ur Leukocyte Esterase (Negative) Urine WBC (Auto) (0-5) /hpf Urine RBC (Auto) (0-4) /hpf U Hyaline Cast (Auto) (0-5) /lpf U Epithel Cells (Auto) (0-5) /lpf Urine Bacteria (Auto) (Negative) Granular Casts (0) /lpf Urine Yeast Urine Osmolality (500-800) mOsm/kg Nasal Screen MRSA (PCR) (Negative) COVID-19 Eval Order SARS-CoV-2 (PCR) (Negative) Hepatitis C Ab Screen Coding Level of Care Code Critical Care 1st 30-74 mins Diagnoses DKA (diabetic ketoacidosis) E11.10 COVID-19 U07.1 Type 2 diabetes mellitus treated with insulin E11.9; Z79.4 Hypothyroidism E03.9 Hypothyroidism type: acquired Hypertension I10 Hypertension type: essential hypertension Dyslipidemia E78.5 Acute hyperkalemia E87.5 YELITZA (acute kidney injury) N17.9 Glaucoma H40.9 Glaucoma type: unspecified Laterality: unspecified laterality 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
[2021-05-04 09:39] LABS: Phosphorus 1.5 mg/dl (2.5-4.9)
[2021-05-04] MEDS ORDERED: POTASSIUM PHOS 3 MMOL/1 ML INFUSION IV STA (09:58)
[2021-05-04] MEDS ORDERED: POTASSIUM PHOSPHATE 30 MMOL in SODIUM CHLORIDE 0.9% 500 ML IV ONE (10:15)
[2021-05-04] MEDS: D5W AND 1/2NSS + 20MEQ KCL 20 MEQ/1,000 ML BAG IV SCH ×3 (10:30→20:55)
--- NOTE | 2021-05-04 11:41 | Pharmacy Report ---
Pharmacy Glycemic Short Note 2 - Date of Service May 04, 2021 - Glycemic Short BSG Results (Last 24 hours): 05/03/21 05/03/21 05/03/21 20:31 20:40 23:07 Glucose 1101 H* 961 H* POC Glucose > 600 H* 05/03/21 05/04/21 05/04/21 23:17 00:42 01:53 Glucose 850 H* 817 H* POC Glucose > 600 H* 05/04/21 05/04/21 05/04/21 04:13 05:05 05:30 Glucose 469 H* POC Glucose 571 H* 469 H* 05/04/21 05/04/21 05/04/21 06:23 07:34 08:13 Glucose POC Glucose 408 H* 269 H 236 H 05/04/21 05/04/21 05/04/21 08:34 09:12 10:27 Glucose 218 H POC Glucose 168 H 159 H 05/04/21 11:18 Glucose POC Glucose 151 H OUTPATIENT ANTIDIABETIC REGIMEN: * Lantus 45 units SQ HS * Humalog 25 units SQ TIDM * A1c = 8.2% on 01/02/21 * A1c pending 05/03/21 ASSESSMENT: * 70yo T2DM female admitted with DKA secondary to not taking her insulin for ~2 weeks [employer] secondary to illness. She was fearful for dropping her BSG while she was sick with COVID and therefore did not take her insulin * Pt with SEVERE DKA per Serum Bicarbonate, Ketones, AG, and Hyperglycemia * IV insulin infusion started per DKA protocol (0.1 unit/kg IV insulin bolus + 0.1 units/kg/hr IV insulin infusion); provider opted for higher goal range of 250-350 mg/dl * BSGs trending downwards with fluids and IV insulin infusion protocol. Serum bicarbonate and AG trending towards normal ranges. * IVF changed to incorporate dextrose when BSG reached goal range. * Pt still NPO but will start the transition process from IV insulin to SQ basal bolus since it will take 2-3 days to re-achieve steady state with Lantus. * Continue to replete electrolytes (K+ and Phos) per DKA protocol PLAN FOR INPATIENT GLYCEMIC CONTROL: * Basal insulin * Lantus 50 units SQ x 1 dose this AM to start transition process to SQ basal bolus * Bolus insulin: when diet resumed and insulin infusion dc * NovoLog per scale ACHS or Q6hrs while NPO * Goal Range: Low 140 mg/dL - High 180 mg/dL * Correction Factor: 15 mg/dL/unit * Nutritional / Prandial insulin per carb ratio of 1 unit per 5 grams CHO consumed PLAN FOR DISCHARGE: * TBD based on updated A1c
--- NOTE | 2021-05-04 12:01 | Electrocardiogram Report ---
Test Reason : Blood Pressure : / mmHG Vent. Rate : 092 BPM Atrial Rate : 092 BPM P-R Int : 208 ms QRS Dur : 104 ms QT Int : 386 ms P-R-T Axes : 068 077 009 degrees QTc Int : 477 ms Poor data quality, interpretation may be adversely affected Normal sinus rhythm Possible Left atrial enlargement Nonspecific ST and T wave abnormality Abnormal ECG When compared with ECG of 04-JUL-2016 09:56, ST now depressed in Anterolateral leads T wave inversion now evident in Inferior leads T wave amplitude has increased in Anterior leads Confirmed by Dudley Valdez ([id number]) on 05/04/2021 12:00:48 PM Referred By: REFERRED SELF Confirmed By:Dudley Valdez
[2021-05-04 18:20] LABS: BUN Creatinine Ratio 29.5 (10-20); Calcium 8.1 mg/dl (8.5-10.1); Creatinine Clr Calc Pharmacy 49.8 ml/min; Est GFR (African American) 49.4 ml/min; Est GFR (Non-African American) 42.6 ml/min; Potassium 4.7 mmol/L (3.5-5.1)
[2021-05-04] MEDS: INSULIN REGULAR 250 UNITS in SODIUM CHLORIDE 0.9% 247.5 ML IV SCH (20:55)
[2021-05-05 01:20] LABS: BUN Creatinine Ratio 25.7 (10-20); Calcium 8.4 mg/dl (8.5-10.1); Est GFR (African American) 55.6 ml/min; Potassium 4.5 mmol/L (3.5-5.1)
[2021-05-05] MEDS: D5W AND 1/2NSS + 20MEQ KCL 20 MEQ/1,000 ML BAG IV SCH ×2 (02:01→05:40)
[2021-05-05 04:52] LABS: Basophils # (auto) 0.02 K/uL (0-0.2); Basophils % (auto) 0.1 %; Eosinophils # (auto) 0.12 K/uL (0-0.5); Eosinophils % (auto) 0.9 %; Hematocrit (blood only) 35.4 % (37-47); Hemoglobin 12.4 g/dL (12.0-16.0); Immature Granulocytes # (auto) 0.04 K/uL (0.00-0.02); Immature Granulocytes % (auto) 0.3 %; Lymphocytes # (auto) 2.26 K/uL (1.2-3.4); Lymphocytes % (auto) 16.8 %; Mean Corpuscular Hemoglobin 31.7 pg (25-34); Mean Corpuscular Volume 90.5 fL (80-100); Monocytes # (auto) 1.18 K/uL (0.11-0.59); Monocytes % (auto) 8.7 %; Neutrophils # (auto) 9.87 K/uL (1.4-6.5); Neutrophils % (auto) 73.2 %; Platelet Count 235 K/uL (130-400); RDW Standard Deviation 39.8 fL (36.4-46.3); Red Blood Count 3.91 M/uL (4.2-5.4); White Blood Count 13.49 K/uL (4.8-10.8)
[2021-05-05] MEDS ORDERED: COUGH DROP (SUGAR FREE) LOZ 24 LOZ/1 BOX BUCCAL ONE (05:11)
[2021-05-05] MEDS: COUGH DROP (SUGAR FREE) LOZ 24 LOZ/1 BOX BUCCAL PRN ×2 (05:32→16:46)
[2021-05-05] MEDS: LEVOTHYROXINE SODIUM 125 MCG TABLET PO SCH (05:40)
[2021-05-05] MEDS: HEPARIN SOD 5,000 UNIT/0.5 ML VIAL SQ SCH ×3 (05:40→20:38)
[2021-05-05] MEDS: ASPIRIN 81 MG ECTAB PO SCH (07:38)
[2021-05-05] MEDS: ATORVASTATIN 40 MG TAB PO SCH (07:38)
[2021-05-05] MEDS ORDERED: [UNRECOGNIZED DRUG - REMARK] ONE (08:00)
[2021-05-05] MEDS: INSULIN ASPART 100 UNITS/ML 3 ML PEN SC SCH ×4 (08:07→20:19)
[2021-05-05 08:16] LABS: Estimated Average Glucose 289 mg/dl; Hemoglobin A1C 11.7 % (4.5-5.6)
[2021-05-05] MEDS ORDERED: SODIUM PHOSPHATE 30 MMOL in SODIUM CHLORIDE 0.9% 500 ML IV ONE (10:15)
[2021-05-05] MEDS ORDERED: INSULIN GLARGINE SOLOSTAR 100 UNITS/ML 3 ML PEN SC ONE (10:15)
[2021-05-05] MEDS: lisinopril 5 MG TAB PO SCH (11:07)
[2021-05-05] MEDS: POT PHOSPHATE MONOBASIC W/ SOD TAB PO SCH ×2 (11:09→13:53)
--- NOTE | 2021-05-05 11:58 | Pharmacy Report ---
Pharmacy Glycemic Short Note 2 - Date of Service May 05, 2021 - Glycemic Short BSG Results (Last 24 hours): 05/04/21 05/04/21 05/04/21 12:37 13:45 14:12 Glucose POC Glucose 158 H 120 H 113 H 05/04/21 05/04/21 05/04/21 14:29 14:57 15:23 Glucose POC Glucose 127 H 144 H 145 H 05/04/21 05/04/21 05/04/21 15:56 16:47 17:24 Glucose 210 H POC Glucose 177 H 191 H 05/04/21 05/04/21 05/04/21 17:59 19:09 21:04 Glucose POC Glucose 221 H 209 H 151 H 05/04/21 05/05/21 05/05/21 22:01 00:05 00:39 Glucose 162 H POC Glucose 163 H 176 H 05/05/21 05/05/21 05/05/21 02:04 06:02 07:15 Glucose POC Glucose 139 H 109 H 122 H 05/05/21 05/05/21 05/05/21 08:01 09:04 09:58 Glucose POC Glucose 131 H 164 H 164 H 05/05/21 11:13 Glucose POC Glucose 150 H OUTPATIENT ANTIDIABETIC REGIMEN: * Lantus 45 units SQ HS * Humalog 25 units SQ TIDM * A1c = 8.2% on 01/02/21 * A1c pending 05/03/21 ASSESSMENT: 05/05 * Anion gap and CO2 have normalized - OK to transition off drip per Dr. Coppola. Discussed transition plan at ICU rounds - minimal/no increase to Lantus initially despite high drip rates as IVF had D5W and was running at 200 mL/hr (now stopped). May need to provide additional Lantus later today. * Will start tighter regimen of Novolog as patient reported significant prandial Humalog usage at home. 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 She was fearful for dropping her BSG while she was sick with COVID and therefore did not take her insulin * Pt with SEVERE DKA per Serum Bicarbonate, Ketones, AG, and Hyperglycemia * IV insulin infusion started per DKA protocol (0.1 unit/kg IV insulin bolus + 0.1 units/kg/hr IV insulin infusion); provider opted for higher goal range of 250-350 mg/dl * BSGs trending downwards with fluids and IV insulin infusion protocol. Serum bicarbonate and AG trending towards normal ranges. * IVF changed to incorporate dextrose when BSG reached goal range. * Pt still NPO but will start the transition process from IV insulin to SQ basal bolus since it will take 2-3 days to re-achieve steady state with Lantus. * Continue to replete electrolytes (K+ and Phos) per DKA protocol PLAN FOR INPATIENT GLYCEMIC CONTROL: * Basal insulin * Lantus 60 units SQ x 1 this AM - potentially more this evening depending on drip transition progress * Continue insulin drip until running at less than 1 unit/hr, then discontinue. No 6 hour overlap required as Lantus at high dose was initiated yesterday * Bolus insulin: when insulin infusion stopped per above: * NovoLog per scale ACHS (or Q6hrs while NPO) plus two overnight checks tonight * Goal Range: Low 120 mg/dL - High 160 mg/dL * Correction Factor: 15 mg/dL/unit * Nutritional / Prandial insulin per carb ratio of 1 unit per 5 grams CHO consumed PLAN FOR DISCHARGE: * TBD based on updated A1c
[2021-05-05] MEDS ORDERED: hydrALAZINE HCL 20 MG/ML VIAL IV PRN ×2 (12:03→14:07)
--- NOTE | 2021-05-05 12:05 | Critical Care Progress Note ---
Date of Service May 05, 2021 Assessment & Plan (1) YELITZA (acute kidney injury): (2) COVID-19: (3) Type 2 diabetes mellitus treated with insulin: (4) DKA (diabetic ketoacidosis): Plan: Impression: 70-year-old female presenting with DKA. Her Covid test was also i ncidentally positive but follow-up was negative. Recommendations: 1. DKA: The patient is tolerating regular diet. Her gap is closed. She received Lantus yesterday but remains hyperglycemic. We will discontinuing her IV fluids in the hopes that limiting the glucose may result in better control. I think we can wean her off of the insulin infusion. Regardless, she appears to be stable at this point time to transfer out of the intensive care unit. 2. Acute kidney injury: Significantly improved currently. Continue to follow. 3. Hypophosphatemia: Replacement has been initiated. 5. Hyperkalemia currently resolved. Continue to trend. 6. Hypertension: Restart lisinopril and follow kidney function as well as potassium. Will place on as needed hydralazine to keep systolic blood pressure less than 160. 7. Discontinue Humphrey catheter. PT OT evaluations. Up out of bed to chair as tolerated. Advancing diet as tolerated. 8. Positive Covid. The patient is had one positive and one negative test. We will repeat rapid Covid test now and if negative the patient can come out of isolation. If it is positive she will require continue airborne isolation. The patient appears to be stable enough to transfer out of the intensive care unit. We will asked the hospitalist to reassume care for her. We will sign off at this point time. Feel free to contact us if we can be of additional assistance. Admission and Anticipated Discharge Date Admission Date: May 03, 2021 Review of Systems Review of Systems: Negative except as noted above Physical Exam Constitutional: WD/WN, vitals as above Neck: trachea midline, no thyromegaly Respiratory: normal respiratory effort, lungs clear to auscultation Cardiovascular: RRR, no murmur, no edema Gastrointestinal (Abdomen): normal bowel sounds, soft, nontender, no hepa tosplenomegaly Musculoskeletal: Extremities: extremities normal to inspection Skin: no rashes, warm and dry Neurologic: Nonfocal exam Lymphatic: no cervical lymphadenopathy Results & Data Results & Data ([facility]) Vital Signs (Past 12 Hours) Vital Signs Temp Pulse Resp BP Pulse Ox 05/05/21 10:00 37.3 C 73 22 98 05/05/21 09:30 37.3 C 71 24 98 05/05/21 09:00 37.3 C 74 23 181/93 H 98 05/05/21 08:30 37.3 C 83 15 97 05/05/21 08:00 37.3 C 76 24 99 05/05/21 07:30 37.4 C 72 97 05/05/21 07:00 37.5 C 75 164/88 H 97 05/05/21 06:45 37.5 C 78 98 05/05/21 06:00 37.4 C 79 168/87 H 98 05/05/21 05:00 37.4 C 78 170/90 H 98 05/05/21 04:00 37.1 C 81 180/78 H 98 05/05/21 03:00 37.2 C 66 96/52 L 96 05/05/21 02:00 37.3 C 73 151/73 H 98 05/05/21 01:00 37.3 C 74 157/77 H 97 Critical Care Results & Data Vital Signs (Past 12 Hours) Vital Signs Temp Pulse Resp BP Pulse Ox 05/05/21 10:00 37.3 C 73 22 98 05/05/21 09:30 37.3 C 71 24 98 05/05/21 09:00 37.3 C 74 23 181/93 H 98 05/05/21 08:30 37.3 C 83 15 97 05/05/21 08:00 37.3 C 76 24 99 05/05/21 07:30 37.4 C 72 97 05/05/21 07:00 37.5 C 75 164/88 H 97 05/05/21 06:45 37.5 C 78 98 05/05/21 06:00 37.4 C 79 168/87 H 98 05/05/21 05:00 37.4 C 78 170/90 H 98 05/05/21 04:00 37.1 C 81 180/78 H 98 05/05/21 03:00 37.2 C 66 96/52 L 96 05/05/21 02:00 37.3 C 73 151/73 H 98 05/05/21 01:00 37.3 C 74 157/77 H 97 Lab & Micro Results (Past 24 Hours) RBC 3.91 M/uL (4.2-5.4) L 05/05/21 WBC 13.49 K/uL (4.8-10.8) H 05/05/21 Hgb 12.4 g/dL (12.0-16.0) 05/05/21 Hct 35.4 % (37-47) L 05/05/21 MCV 90.5 fL (80-100) 05/05/21 MCH 31.7 pg (25-34) 05/05/21 MCHC 35.0 g/dL (32-36) 05/05/21 RDW Standard Deviation 39.8 fL (36.4-46.3) 05/05/21 RDW Coefficient of Variation 12.0 % (11.5-14.5) 05/05/21 Plt Count 235 K/uL (130-400) 05/05/21 MPV 10.0 fL (7.4-10.4) 05/05/21 Neutrophils (%) (Auto) 73.2 % 05/05/21 Lymphocytes (%) (Auto) 16.8 % 05/05/21 Monocytes # (Auto) 1.18 K/uL (0.11-0.59) H 05/05/21 Eosinophils # (Auto) 0.12 K/uL (0-0.5) 05/05/21 Immature Granulocyte % (Auto) 0.3 % 05/05/21 Neutrophils # (Auto) 9.87 K/uL (1.4-6.5) H 05/05/21 Lymphocytes # (Auto) 2.26 K/uL (1.2-3.4) 05/05/21 Monocytes # (Auto) 1.18 K/uL (0.11-0.59) H 05/05/21 Eosinophils # (Auto) 0.12 K/uL (0-0.5) 05/05/21 Basophils # (Auto) 0.02 K/uL (0-0.2) 05/05/21 Immature Granulocyte # (Auto) 0.04 K/uL (0.00-0.02) H 05/05/21 Na 135 mmol/L (136-145) L 05/05/21 K 4.5 mmol/L (3.5-5.1) 05/05/21 Cl 108 mmol/L (98-107) H 05/05/21 CO2 21 mmol/L (21-32) 05/05/21 Anion Gap 6.0 (3-11) 05/05/21 BUN 30 mg/dl (7-18) H 05/05/21 Creatinine 1.16 mg/dl (0.6-1.2) 05/05/21 Estimated GFR ( Amer) 55.6 ml/min 05/05/21 Estimated GFR (Non-Af Amer) 48.0 ml/min 05/05/21 BUN/Creatinine Ratio 25.7 (10-20) H 05/05/21 Glu 162 mg/dl (70-99) H 05/05/21 Ca 8.4 mg/dl (8.5-10.1) L 05/05/21 Phosphorus Level 1.0 mg/dl (2.5-4.9) L* 05/05/21 Calcium Level 8.4 mg/dl (8.5-10.1) L 05/05/21 00:39 05/05/21 Venous Blood pH 7.42 (7.36-7.41) H 05/05/21 04:41 05/05/21 Microbiology 05/04/21 01:38 Urine Culture - Preliminary Urine,Clean Catch No growth - Less than 1,000 colonies/mL, Final report to follow. I & O Totals 24 Hours 05/04/21 05/05/21 05/06/21 06:59 06:59 06:59 Intake Total 2637.483 / 2637.483 5869.747 / 5869.747 606.289 / 606.289 Output Total 1650 / 1650 3695 / 3695 Balance 987.483 / 702.278 6844.747 / 2174.747 606.289 / 606.289 Cumulative 05/03/21 20:06 thru 05/05/21 11:18 Intake Total 9113.519 Output Total 5345 Balance 3768.519 RT Ventilator Mngmt (Last Documented) Ventilator Ordered Settings Respiratory Rate 22 05/05/21 10:00 Ventilator - PT Measurements Respiratory Rate 22 Coding Level of Care Code 73515 Subseq Hosp Care Lvl 3 Diagnoses YELITZA (acute kidney injury) N17.9 COVID-19 U07.1 Type 2 diabetes mellitus treated with insulin E11.9; Z79.4 DKA (diabetic ketoacidosis) E11.10
[2021-05-05] MEDS ORDERED: hydrALAZINE HCL 20 MG/ML VIAL IV STA (13:51)
--- NOTE | 2021-05-05 14:39 | Hospitalist Progress Note ---
Date of Service May 05, 2021 Assessment & Plan (1) DKA (diabetic ketoacidosis): Plan: 70yo female with Type II DM on insulin therapy (last MmoJ6Q=4.2 01/02/21) presenting with severe DKA in setting of recent Covid-19 diagnosis, non- adherence to home insulin regimen. Patient reports worsening symptoms x 72 hours. Diabetic ketoacidosis, type 2 diabetes mellitus Initial blood glucose = 1101, Anion Gap=30, pH = 7.07, Serum HCO3=5, Pjschtrwgd=133, B-hydroxybutyric Yxvj=115.25, K=6.8, Psuedohyponatremia with Na = 118, corrects to 134 - Possibly starvation ketosis contributing as well as patient has not eaten much x 2 weeks -Patient treated with fluids and insulin drip, and bicarb Gap closed, pH normalized, bicarb normalized, patient converted to basal bolus insulin Electrolyte abnormalities resolved with the exception of phosphorus 1.0, repleted today, recheck this evening Patient stable for downgrade, will observe glycemic management overnight (2) Acute renal failure (ARF): Plan: -On admission patient with YELITZA. BUN of 61 from prior normal of 19 and Cr of 2.47 from prior value of 0.98. Patient appears clinically dry on physical exam. Reports poor oral intake as well as marked increase in urination - most likely from hyperglycemia. K=6.8. No EKG changes of hyperkalemia. -Avoid nephrotoxic agents -Renal dosing where needed -Improved with fluid resuscitation, at normal baseline 05/05 (3) Acute hyperkalemia: Plan: As above. K=6.8 on admission. No acute EKG changes of hyperkalemia. Patient administered Ca gluconate x 1 gm in ER. Insulin gtt as above for management of DKA with BMP q 4 hours -Improved -Monitor (4) Hypothyroidism: Plan: TSH=0.625 currently -Continue Synthroid 125mcg po daily (5) Hypertension: Plan: Lisinopril initially held due to volume depletion and YELITZA Patient hypertensive 05/05 Lisinopril resumed Hydralazine as needed, one-time dose given prior to transfer from ICU (6) Dyslipidemia: Plan: Chronic -Continue Atorvastatin 40mg po daily (7) COVID-19: Plan: Patient with appx 14 days of symptoms consistent with Covid-19. She tested POSITIVE at an outpatient setting on 04/28/21. She was at home in quarantine for the last two weeks. Patient's Covid-19 test today is NEGATIVE. -Maintain isolation precautions as patient had positive test on 04/28/21 Repeat PCR panel negative Discontinued isolation precautions Plan: Ppx - heparin 5000 u TID Code - Full per discussion with patient PT/OT pending Admission and Anticipated Discharge Date Admission Date: May 03, 2021 Mariano Melendez is seen at the bedside this morning. She reports she feels well, and at/near her normal baseline. She reports she feels "so much "better than when she came in, but does not remember a good chunk of time between passing out at home and being treated in the ICU. She denies fever, chills, sweats this morning. Denies chest pain, chest pressure, abdominal pain, nausea/vomiting/diarrhea/constipation this morning. She reports she feels she is breathing normally and is not short of breath at time of assessment, but does have a slight sore throat. Denies cough. Reports that she had not been taking insulin at home because she was eating less and did not think that she needed it, reports she has never had DKA before and "will make that mistake again". Discussed DKA/HHS with patient, no additional questions at bedside Review of Systems Review of Systems: 10 point review of systems negative except as noted in HPI Physical Exam Physical Exam: General: A&Ox3. NAD. Cooperative. HEENT: Atraumatic, normocephalic. Visual acuity grossly intact, hearing grossly intact. Pulm: CTAB A&P. -wheezes, -rales, -rhonchi. Symmetrical chest rise. No increase work of breathing. No respiratory distress. Cardiac: RRR, -mrg. Radial pulses intact and symmetrical. Abdominal: Nontender, nondistended, soft. BS present. Results & Data Results & Data ([facility]) Vital Signs (Past 12 Hours) Vital Signs Temp Pulse Resp BP Pulse Ox 05/05/21 14:00 37.3 C 87 25 H 153/75 H 98 05/05/21 13:30 37.3 C 80 21 97 05/05/21 13:00 37.3 C 83 25 H 97 05/05/21 12:30 37.3 C 78 22 98 05/05/21 12:00 37.4 C 71 17 171/87 H 97 05/05/21 11:30 37.3 C 77 26 H 97 05/05/21 11:00 37.4 C 73 25 H 97 05/05/21 10:30 37.2 C 73 26 H 98 05/05/21 10:00 37.3 C 73 22 98 05/05/21 09:30 37.3 C 71 24 98 05/05/21 09:00 37.3 C 74 23 181/93 H 98 05/05/21 08:30 37.3 C 83 15 97 05/05/21 08:00 37.3 C 76 24 99 05/05/21 07:30 37.4 C 72 97 05/05/21 07:00 37.5 C 75 164/88 H 97 05/05/21 06:45 37.5 C 78 98 05/05/21 06:00 37.4 C 79 168/87 H 98 05/05/21 05:00 37.4 C 78 170/90 H 98 05/05/21 04:00 37.1 C 81 180/78 H 98 05/05/21 03:00 37.2 C 66 96/52 L 96 PG Care Time/CCT Total # of Minutes Spent Total Time Spent with Patient: Total time spent is greater than 50% in coordination of care (as documented) at patient's floor/unit and/or counseling patient: Coding Level of Care Code 84063 Subseq Hosp Care Lvl 3 Diagnoses DKA (diabetic ketoacidosis) E11.10 Acute renal failure (ARF) N17.9 Acute hyperkalemia E87.5 Hypothyroidism E03.9 Hypothyroidism type: acquired Hypertension I10 Hypertension type: essential hypertension Dyslipidemia E78.5 COVID-19 U07.1 (1) Hypothyroidism Hypothyroidism type: acquired Qualified Code(s): E03.9 - Hypothyroidism, unspecified (2) Hypertension Hypertension type: essential hypertension Qualified Code(s): I10 - Essential (primary) hypertension
[2021-05-05 18:54] LABS: Creatinine Clr Calc Pharmacy 64.3 ml/min; Est GFR (African American) 66.6 ml/min; Est GFR (Non-African American) 57.4 ml/min; Magnesium 2.2 mg/dl (1.8-2.4)
[2021-05-05 19:34] LABS: Phosphorus 3.3 mg/dl (2.5-4.9)
[2021-05-06] MEDS: INSULIN ASPART 100 UNITS/ML 3 ML PEN SC SCH ×4 (00:13→11:45)
[2021-05-06] MEDS: LEVOTHYROXINE SODIUM 125 MCG TABLET PO SCH (05:53)
[2021-05-06] MEDS: HEPARIN SOD 5,000 UNIT/0.5 ML VIAL SQ SCH (05:53)
[2021-05-06 06:23] LABS: BUN Creatinine Ratio 14.2 (10-20); Calcium 8.2 mg/dl (8.5-10.1); Creatinine Clr Calc Pharmacy 59.6 ml/min; Est GFR (African American) 60.7 ml/min; Est GFR (Non-African American) 52.3 ml/min; Magnesium 2.2 mg/dl (1.8-2.4); Potassium 3.6 mmol/L (3.5-5.1)
[2021-05-06 06:29] LABS: Phosphorus 2.3 mg/dl (2.5-4.9)
[2021-05-06] MEDS: ASPIRIN 81 MG ECTAB PO SCH (08:15)
[2021-05-06] MEDS: ATORVASTATIN 40 MG TAB PO SCH (08:15)
[2021-05-06] MEDS: lisinopril 5 MG TAB PO SCH (08:15)
[2021-05-06] MEDS ORDERED: POT PHOSPHATE MONOBASIC W/ SOD TAB PO SCH (09:00)
--- NOTE | 2021-05-06 10:35 | Discharge Summary ---
Date of Service May 06, 2021 Admission HPI Per Admitting Provider Nora Antony is a 70yo female with history of DM, HTN, HLP presenting with DKA. Patient has been experiencing cough, sore throat, loss of taste and smell for 14 days. She had Covid-19 testing performed in the outpatient setting and was found to be POSITIVE for Covid-19 on 04/28/21. She has been recovering at home. No steroids given. She was prescribed Augmentin for presumed sinus infection as well as Tessalon as needed for cough. Patient reports 3 days of extreme fatigue as well as gait instability, generalized weakness and confusion. She has eaten very little for the last two weeks of illness and has not been taking her insulin for the last two weeks. She has not been monitoring her blood sugar at home. She states she has been urinating a lot and has had dry mouth and SOB. She denies fever, chills, cough, chest pain, palpitations, abdominal pain, nausea, vomiting, diarrhea or constipation. No additional complaints at this time. ER workup revealed DKA with blood sugar = 1101, AG = 30, HCO3=5 and pH = 7.07 ER Course: Ca gluconate 1gm, NaHCO3 x 50mEq, NSS x 1 L then at 125mL/hr, Insulin 10u and gtt at 10u/hr starting rate Admission Exam Per Admitting Provider General: patient ill in appearance, somnolent but arousable, oriented x 3, answering questions appropriately and following commands Skin: warm, dry, intact, no rashes or lesions HEENT: NC/AT, PERRL, +photophobia, anicteric sclera, conjunctiva without injection, external ear normal to inspection and nontender, nares patent, DRY lips and mucus membranes, dentition intact, no oropharyngeal lesions, neck supple, trachea midline, no LAD, no thyromegaly, no JVD Heart: +S1/S2, regular, no m/r/g Lungs: +tachypnea with Kussmaul's respirations, equal air entry bilaterally, no rales/rhonchi/wheezes Abd: +BS, soft, ND, diffusely tender with deep palpation, no rebound/guarding/peritoneal signs, no masses/organomegaly/ascites Ext: warm, 2+ pulses in UE/LE bilaterally, no clubbing/cyanosis or edema Neuro: somnolent, arousable, nonfocal, patient AA&O x 4, speech intact, no facial droop, moving all extremities on command with equal strength 5/5 Principal Diagnosis Diabetic ketoacidosis Discharge Exam General: A&Ox3. NAD. Cooperative. HEENT: Atraumatic, normocephalic. Visual acuity grossly intact, hearing grossly intact. Pulm: CTAB A&P. -wheezes, -rales, -rhonchi. Symmetrical chest rise. No increase work of breathing. No respiratory distress. Cardiac: RRR, -mrg. Radial pulses intact and symmetrical. Abdominal: Nontender, nondistended, soft. BS present. CRANIAL NERVES: II: Pupils equal and reactive, no relative afferent pupillary defect, no VF cuts III, IV, : EOM intact, no gaze preference or deviation, no nystagmus. 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, finger flexion/extension, interosseus RLE: 5/5 to hip flexion, ankle dorsiflexion/plantarflexion LLE: 5/5 to hip flexion, ankle dorsiflexion/plantarflexion SENSORY: Normal to touch in upper and lower extremities without deficit or asymmetry Discharge Data Allergies Allergy/AdvReac Type Severity Reaction Status Date / Time bee venom protein (honey bee) Allergy Severe ANAPHYLAXIS Verified 05/03/21 22:59 lovastatin [From Mevacor] Allergy Unknown Verified 05/03/21 22:59 Consultations 05/03/21 21:53 ED Decision to Admit Stat 05/04/21 00:11 Consult Duct Layer Routine Diabetes Follow up Diabetes Follow-up Needed for HgbA1c >9% Hospital Course (1) DKA (diabetic ketoacidosis): 70yo female with Type II DM on insulin therapy (last PxzE9P=1.2 01/02/21) presenting with severe DKA in setting of recent Covid-19 diagnosis, non- adherence to home insulin regimen. Patient reports worsening symptoms x 72 hours. To do as outpatient: 1. Follow-up on serum glucoses, patient resumed insulin. A1c acutely elevated to 11 in the context of noncompliance with insulin, prior A1c approximately 8. Adjust as needed at follow-up 2. Routine primary care follow-up Diabetic ketoacidosis, type 2 diabetes mellitus Initial blood glucose = 1101, Anion Gap=30, pH = 7.07, Serum HCO3=5, Bsumdrkqgt=204, B-hydroxybutyric Quix=696.25, K=6.8, Psuedohyponatremia with Na = 118, corrects to 134 - Possibly starvation ketosis contributing as well as patient has not eaten much x 2 weeks -Patient treated with fluids and insulin drip, and bicarb Gap closed, pH normalized, bicarb normalized, patient converted to basal bolus insulin Electrolyte abnormalities resolved with the exception of phosphorus 1.0, repleted today, increased to 2.5. Additional phosphorus oral repletion given prior to discharge (2) Acute renal failure (ARF): -On admission patient with YELITZA. BUN of 61 from prior normal of 19 and Cr of 2.47 from prior value of 0.98. Patient appears clinically dry on physical exam. Reports poor oral intake as well as marked increase in urination - most likely from hyperglycemia. K=6.8. No EKG changes of hyperkalemia. -Avoid nephrotoxic agents -Renal dosing where needed -Improved with fluid resuscitation, at normal baseline 05/05 (3) Acute hyperkalemia: As above. K=6.8 on admission. No acute EKG changes of hyperkalemia. Patient administered Ca gluconate x 1 gm in ER. Insulin gtt as above for management of DKA with BMP q 4 hours -Improved, resolved -Monitor (4) Hypothyroidism: TSH=0.625 currently -Continue Synthroid 125mcg po daily (5) Hypertension: Lisinopril initially held due to volume depletion and YELITZA Patient hypertensive 05/05 Lisinopril resumed Hydralazine as needed, one-time dose given prior to transfer from ICU (6) Dyslipidemia: Chronic -Continue Atorvastatin 40mg po daily (7) COVID-19: Patient with appx 14 days of symptoms consistent with Covid-19. She tested POSITIVE at an outpatient setting on 04/28/21. She was at home in quarantine for the last two weeks. Patient's Covid-19 test today is NEGATIVE. -Maintain isolation precautions as patient had positive test on 04/28/21 Repeat PCR panel negative Discontinued isolation precautions Ppx - heparin 5000 u TID Code - Full per discussion with patient PT/OT. For discharge home Total Time Total Time Spent Total Time Spent (In Minutes): Total time spent day of discharge approximately 35 minutes including documentation, clinical care, coordination of care, and review of labs images Discharge Plan Discharge Items Patient Disposition: Home - Self-Care Reason For Visit: DKA Discharge Diagnosis: Diabetic ketoacidosis Activity: Per Instructions section Non-emergency contact: Primary Care Provider Call non-emergency contact if: you have any medication questions, your symptoms worsen, your pain is concerning for you and you have a fever Follow-up/Referrals: Valerie Law MD [Primary Care Provider] - 05/15/21 10:20 am (Please follow up with Dr. Law on 05/15/21 at 10:20 am. Please arrive to the office at 10:05 am for your appointment. If you are unable to keep this appointment, please call the office to reschedule at [phone].) Diet: Carb Consistent or DM2 Addtl Attending Provider Instructions: You were seen in the hospital for diabetic ketoacidosis, a potentially life- threatening emergency and complication of diabetes. This likely occurred as a result of both of not eating for an extended period, contributing to a condition called starvation ketosis, along with not taking any insulin. In order to prevent this in the future it is important to eat regular meals at least daily, and to continue to check your blood sugars even when not eating and treat them when they go high. If your blood sugars are over 300 for 2 consecutive measurements, please contact your primary care physician for advice or present to the ER for evaluation in the future. You have not had new medications prescribed, although you should resume your insulin and follow-up with your outpatient provider for further adjustments. Your prior A1c suggests that you had slightly suboptimal control as the goal should be less than 7 and your A1c was around 8. Your most recent A1c was 11, this was most likely due to stopping insulin entirely and it has been recommended you resume your previous insulin dosing with close follow-up to Dr. Law for additional adjustments based on your outpatient blood sugars. A followup appointment is being scheduled for you with Dr. Law. You should be seen seen within 1 week. You should receive a call to confirm this appointment. If you do not receive a call within 48 hours to confirm this appointment, or need to change this appointment, please call the provider's office at [phone]. If you develop any new or worsening symptoms including fever, chills, sweats, chest pain, chest pressure, difficulty breathing, uncontrolled nausea/vomiting, rash, wheezing, passing out or nearly passing out, bleeding, black/bloody bowel movements, or other new or concerning symptoms please call your primary care physician at [phone], or call 911 for re-evaluation in the emergency department if you are very concerned. Pending Studies at Discharge: No Stand-Alone Forms: My [facility] [employer], Smoking Cessation Medications and DC Order Prescriptions: Continued lisinopril 5 mg tablet 5 mg PO DAILY Qty: 90 RF: 1 levothyroxine 125 mcg tablet 125 mcg PO DAILY Qty: 90 RF: 1 (DME) FreeStyle Inez 2 Sensor Kit See Rx Instructions .Route Qty: 2 RF: 1 atorvastatin 40 mg tablet 40 mg PO DAILY Qty: 90 RF: 1 cholecalciferol (vitamin D3) 1,250 mcg (50,000 unit) capsule 1,250 mcg PO WEEKLY Qty: 12 RF: 1 fluconazole 150 mg tablet 150 mg PO Q3D 0 Days Qty: 2 RF: 0 Reanna-D 24 Hour 180-240 mg tablet extended release 24 hr 1 tab PO DAILY PRN (Reason: ALLERGIES) RF: 0 diphenhydramine-acetaminophen [Tylenol PM Extra Strength] 25-500 mg tablet 1 tab PO Q6H PRN (Reason: Sleep) RF: 0 Lantus Solostar U-100 Insulin 100 unit/mL (3 mL) insulin pen 45 unit SQ HS RF: 0 insulin lispro [Humalog KwikPen Insulin] 100 unit/mL insulin pen 25 unit SQ TIDM RF: 0 (DME) Contour Next Test Strips Strip See Rx Instructions .ROUTE .MEDSUPPLY Qty: 200 RF: 3 (DME) lancets [OneTouch Delica Lancets] 30 gauge misc See Rx Instructions .ROUTE .MEDSUPPLY Qty: 200 RF: 3 gabapentin 300 mg capsule 300 mg PO HS Qty: 90 RF: 3 benzonatate 200 mg capsule 200 mg PO TID PRN (Reason: cough) Qty: 30 RF: 1 aspirin 81 mg tablet,delayed release (DR/EC) 81 mg PO DAILY RF: 0 omega 2-xla-uvs-fish oil [Fish Oil] 1,200 (144-216) mg capsule 1 cap PO DAILY RF: 0 Discontinued amoxicillin-pot clavulanate [Augmentin] 875-125 mg tablet 1 tab PO Q12H 10 Days Qty: 20 RF: 0 Discharge Orders: Discharge Order (Routine); Ordered 05/06/21 Ordered By: Enrico Hoyos Admission Data Admit Date/Time: 05/03/21 22:40 Attending Provider: Enrico Hoyos Admit Provider: Kailee Ceron Primary Care Provider: Valerie Law Other Providers: Kailee Ceron ; Aureliano Duarte Other Interventions: Discharge Summary Assessment (RN) Last Done: 05/06/21 11:51 Coding Level of Care Code D/C DAY MANAGEMENT >30 MINS Diagnoses DKA (diabetic ketoacidosis) E11.10 Acute renal failure (ARF) N17.9 Acute hyperkalemia E87.5 Hypothyroidism E03.9 Hypothyroidism type: acquired Hypertension I10 Hypertension type: essential hypertension Dyslipidemia E78.5 COVID-19 U07.1
--- NOTE | 2021-05-06 11:45 | Pharmacy Report ---
Pharmacy Glycemic Short Note 2 - Date of Service May 06, 2021 - Glycemic Short BSG Results (Last 24 hours): 05/05/21 05/05/21 05/05/21 12:03 12:24 12:57 Glucose POC Glucose 117 H 114 H 130 H 05/05/21 05/05/21 05/05/21 13:59 16:36 18:07 Glucose 289 H POC Glucose 129 H 260 H 05/05/21 05/06/21 05/06/21 20:15 00:07 04:33 Glucose POC Glucose 194 H 105 H 113 H 05/06/21 05/06/21 05:36 07:11 Glucose 137 H POC Glucose 216 H OUTPATIENT ANTIDIABETIC REGIMEN: * Lantus 45 units SQ HS * Humalog 25 units SQ TIDM * A1c = 8.2% on 01/02/21 * A1c = 11.7% on 05/03/21 (obtained when patient had not been on any insulin x2 weeks) ASSESSMENT: 05/06 * Transition from IV infusion to basal/bolus has gone well over the last 24 hours. * AM fasting BSG today was 216 mg/dL, but this was a sharp increase from the random level of 137 mg/dL obtained only 1.5 hours prior and is not consistent with the trend in BSG's overnight. This may have been obtained post-prandi ally. Therefore will continue Lantus, but at slightly reduced dose now that it is getting closer to steady state. Also, will start to shift the time of administration back to help with eventual transition back to an HS schedule as an outpatient * Novolog parameters may need to be tightened - will base adjustment on trend from AM fasting BSG to pre-lunch BSG 05/05 * Anion gap and CO2 have normalized - OK to transition off drip per Dr. Coppola. Discussed transition plan at ICU rounds - minimal/no increase to Lantus initially despite high drip rates as IVF had D5W and was running at 200 mL/hr (now stopped). May need to provide additional Lantus later today. * Will start tighter regimen of Novolog as patient reported significant prandial Humalog usage at home. Inpatient regimen at weight-based severe stress estimate 05/04 * 70yo T2DM female admitted with DKA secondary to not taking her insulin for ~2 weeks [employer] secondary to illness. She was fearful for dropping her BSG while she was sick with COVID and therefore did not take her insulin * Pt with SEVERE DKA per Serum Bicarbonate, Ketones, AG, and Hyperglycemia * IV insulin infusion started per DKA protocol (0.1 unit/kg IV insulin bolus + 0.1 units/kg/hr IV insulin infusion); provider opted for higher goal range of 250-350 mg/dl * BSGs trending downwards with fluids and IV insulin infusion protocol. Serum bicarbonate and AG trending towards normal ranges. * IVF changed to incorporate dextrose when BSG reached goal range. * Pt still NPO but will start the transition process from IV insulin to SQ basal bolus since it will take 2-3 days to re-achieve steady state with Lantus. * Continue to replete electrolytes (K+ and Phos) per DKA protocol PLAN FOR INPATIENT GLYCEMIC CONTROL: * Basal insulin * Lantus 40-50 units SQ x 1 at dinner * Bolus insulin: when insulin infusion stopped per above: * NovoLog per scale ACHS (or Q6hrs while NPO) plus two overnight checks tonight * Goal Range: Low 120 mg/dL - High 160 mg/dL * Correction Factor: 15 mg/dL/unit * Nutritional / Prandial insulin per carb ratio of 1 unit per 5 grams CHO consumed PLAN FOR DISCHARGE: * TBD based on updated A1c
[2021-05-06 11:56] LABS: Basophils # (auto) 0.05 K/uL (0-0.2); Basophils % (auto) 0.4 %; Eosinophils # (auto) 0.18 K/uL (0-0.5); Eosinophils % (auto) 1.6 %; Hematocrit (blood only) 37.6 % (37-47); Hemoglobin 12.9 g/dL (12.0-16.0); Immature Granulocytes # (auto) 0.02 K/uL (0.00-0.02); Immature Granulocytes % (auto) 0.2 %; Lymphocytes # (auto) 3.61 K/uL (1.2-3.4); Lymphocytes % (auto) 31.6 %; Mean Corpuscular Hemoglobin 31.9 pg (25-34); Mean Corpuscular Hgb Conc 34.3 g/dL (32-36); Mean Corpuscular Volume 92.8 fL (80-100); Mean Platelet Volume 10.8 fL (7.4-10.4); Monocytes # (auto) 1.09 K/uL (0.11-0.59); Monocytes % (auto) 9.6 %; Neutrophils # (auto) 6.46 K/uL (1.4-6.5); Neutrophils % (auto) 56.6 %; Platelet Count 312 K/uL (130-400); RDW Coefficient of Variation 12.3 % (11.5-14.5); RDW Standard Deviation 41.8 fL (36.4-46.3); Red Blood Count 4.05 M/uL (4.2-5.4); White Blood Count 11.41 K/uL (4.8-10.8)
[2021-05-06] MEDS ORDERED: INSULIN GLARGINE SOLOSTAR 100 UNITS/ML 3 ML PEN SC SCH (16:30)
== END 2021-05-06 16:04 | disposition home or self-care (01) | DRG 638 ==
LOC: ED 20:18 → SUATTDRO 22:40 → 1E 22:40

== ENCOUNTER 2022-10-05 06:44 | Observation (INO) ==
[2022-10-05] MEDS ORDERED: ONDANSETRON INJ 2 MG/ML 2 ML VIAL ONE (06:49)
[2022-10-05] MEDS ORDERED: SODIUM CHLORIDE 0.9% 1000ML 500 ML IV ONE (07:14)
[2022-10-05] MEDS ORDERED: ONDANSETRON INJ 2 MG/ML 2 ML VIAL IV STA (07:14)
[2022-10-05] MEDS ORDERED: lisinopril 10 MG TAB PO STA (07:34)
--- NOTE | 2022-10-05 07:34 | Emergency Department Note ---
Impression & Plan Unsteady gait, Nausea ED Provider Note INFORMANT: Patient ED PROVIDER(S): Abdulaziz Lassiter DO CHIEF COMPLAINT: Unsteadiness and nausea PLAN: Disposition: Admission Outpatient prescription management: none Discussion with: I spoke with the hospitalist, who will see the patient for admission/observation and further evaluation and consultation. MEDICAL DECISION MAKING: This is a 71-year-old female who presents to the ED with a chief complaint of feeling unsteady this morning when she awoke. The patient states that she has also had nausea. The patient states that when she first got up she stumbled and fell forward but did not fall to the ground. She then tried getting to the bathroom and stumbled into the wall. She kept stumbling until she decided to call EMS because she felt that something was wrong. She also reports some associated nausea but has not vomited. Denies any focal weakness. Denies any generalized weakness. She denies any other specific complaints. She was particularly concerned about possibly a stroke or having COVID. She has not had any cold symptoms. No cough or shortness of breath. No chest pains. No abdominal pains. Her vital signs reveal hypertension. She does take medication for hypertension. The patient has no focal neurologic deficits on my exam. No pronator drift. Cerebellar testing is within normal limits. Normal strength in all 4 extremities. Normal facial features and no droop. Lung sounds are clear. Abdomen soft. The patient is in no distress. A twelve-lead EKG shows a normal sinus rhythm at a rate of 65. No ST elevation. No ectopy. Chest x-ray was negative for acute disease. CT scan of the brain did not show acute process. CBC did not show any concerning anemia or leukocytosis. Chemistry panel was unremarkable. Glucose was 280. Troponin was negative for myocardial infarction. COVID test was negative. Total CK was elevated at 305. The patient was given her p.o. lisinopril this morning for hypertension. She was also treated with IV Zofran and some IV fluids. She will be seen by the hospitalist for further inpatient evaluation and care. Concern is possibility of a small stroke that may be causing her unsteady gait and nausea as well as some hypertension. Triage Nursing notes reviewed. Vital Signs: reviewed Prior /Outside records reviewed: none Differential diagnosis: Differential includes CVA, inner ear or vestibular issue, anemia, electrolyte abnormality, dehydration, other. Diagnostics, as interpreted by me: 12 lead ECG: Normal sinus rhythm rate of 65. No ST elevation. No PVCs. Normal QTc Cardiac Monitoring ordered: Sinus rhythm in the 60s Medical decision rules: none Imaging studies: Chest x-ray: No acute disease. CT scan of the brain, no acute disease. No intracranial hemorrhage Procedures: none. Critical care: none. HPI: See MDM above. PAST MEDICAL HISTORY: See Below PAST SURGICAL HISTORY: See Below SOCIAL HISTORY: See Below HOME MEDICATIONS: See Below ALLERGIES: See Below VITALS: See Below PHYSICAL EXAMINATION: See MDM for positive findings otherwise unremarkable. CONSTITUTIONAL/VITAL SIGNS: Reviewed GENERAL:done as appropriate INTEGUMENTARY: done as appropriate HEAD: done as appropriate EYES: done as appropriate RESPIRATORY: done as appropriate CARDIOVASCULAR:done as appropriate GI/ABDOMEN:done as appropriate EXTREMITIES: done as appropriate NEUROLOGICAL: done as appropriate PSYCHIATRIC:done as appropriate MUSCULOSKELETAL:done as appropriate TRIAGE NURSING DOCUMENTATION REVIEWED. Past Med/Surg History Medical History Bakers cyst COVID-19 DKA (diabetic ketoacidosis) Dyslipidemia Hypertension Hypothyroidism Obesity (BMI 30-39.9) Type 2 diabetes mellitus treated with insulin Surgical History H/O thyroidectomy History of back surgery Family History Mother Arthritis Malignant neoplasm of urinary bladder Brother Cardiac disorder Sister Back pain Father Myocardial infarction Denies family history of Ovarian cancer Prostate cancer Breast cancer Colorectal cancer Social History Smoking Status: Never smoker Second Hand Exposure: No; Hx Alcohol Use: No Hx Substance Use: No Preferred Language: Yoruba Communication Ability: Effective Visual Impairment: Limited Hearing Ability: Normal Beliefs That Will Affect Care: None marital status: Single Current Living Situation: Alone current occupational status: retired current occupation: worked at [employer] in [employer] dept Feels Safe at Home: Yes Childhood Exposure to Second-Hand Smoke: No Dental Care, Regularly: Yes Physical Activity Frequency: Does not Exercise Physical Activity Frequency Comment: not currently due to foot problem Seatbelt Use: always Sunscreen Use: Yes Assistive Devices: Walker Allergies Allergies Allergy/AdvReac Type Severity Reaction Status Date / Time bee venom protein (honey bee) Allergy Severe ANAPHYLAXIS Verified 09/03/22 14:50 lovastatin [From Mevacor] Allergy Unknown Verified 09/03/22 14:50 Home Meds Home Medications Medication Instructions Recorded Confirmed aspirin 81 mg tablet,delayed 81 mg PO DAILY 03/07/19 09/03/22 release omega 8-jvs-dse-fish oil 1,200 mg 1 cap PO DAILY 03/18/21 09/03/22 (144 mg-216 mg) capsule (Fish Oil) lancets 30 gauge (OneTouch Delica 05/04/22 07/23/22 Lancets) insulin glargine 100 unit/mL (3 32 unit subcut HS 09/03/22 mL) subcutaneous pen (Lantus Solostar U-100 Insulin) insulin lispro 100 unit/mL 50 unit subcut DAILY 09/03/22 subcutaneous pen meloxicam 15 mg tablet 15 mg PO DAILY 09/03/22 09/03/22 Previous Rx's Medication Instructions Recorded acetone (urine) test (Ketostix #25 ea 05/07/21 strips) blood sugar diagnostic (OneTouch #100 ea 05/07/21 Verio test strips) Diabetic Shoes #1 ea 10/28/21 atorvastatin 40 mg tablet See Rx Instructions .Route 01/01/22 .COMPLEX #90 tabs flash glucose sensor (FreeStyle #7 ea 01/01/22 Inez 2 Sensor kit) gabapentin 300 mg capsule 300 mg PO HS #90 caps 01/01/22 levothyroxine 125 mcg tablet 125 mcg PO DAILY #90 tabs 01/01/22 semaglutide 0.25 mg or 0.5 mg (2 0.5 mg (0.4 mL) subcut .Weekly 05/25/22 mg/1.5 mL) subcutaneous pen #1.5 mL injector (Ozempic) lisinopril 10 mg tablet 10 mg PO DAILY #90 tabs 07/23/22 Results & Data (ED) Vital Signs Vital Signs - 24 hr 10/05/22 06:52 10/05/22 06:56 10/05/22 07:03 Temperature 36.4 C L Temperature Source Oral Pulse Rate 77 68 67 Pulse Rate from SpO2 Sensor 67 Respiratory Rate 14 16 Blood Pressure 196/100 H 196/89 H Blood Pressure Mean 132 124 Pulse Oximetry 99 97 Oxygen Delivery Method Room Air Sepsis Recent Fever Within 48 Hours No Sepsis New/Unexplained Change in Mental Status N/A Sepsis Action Taken by Nursing No Action Required 10/05/22 07:31 Temperature Temperature Source Pulse Rate 68 Pulse Rate from SpO2 Sensor Respiratory Rate 18 Blood Pressure 186/93 H Blood Pressure Mean 124 Pulse Oximetry 97 Oxygen Delivery Method Sepsis Recent Fever Within 48 Hours Sepsis New/Unexplained Change in Mental Status Sepsis Action Taken by Nursing Laboratory Data 10/05/22 07:21 10/05/22 07:21 Lab Results 10/05/22 10/05/22 10/05/22 Range/Units 07:00 07:21 07:21 WBC 9.77 (4.8-10.8) K/ul RBC 4.32 (4.20-5.40) M/uL Hgb 13.9 (12.0-16.0) g/dl Hct 39.5 (37.0-47.0) % MCV 91.4 (80.0-100.0) fL MCH 32.2 (25.0-34.0) pg MCHC 35.2 (32.0-36.0) g/dL RDW Std Deviation 40.9 (36.4-46.3) fL RDW Coeff of James 12.1 (11.5-14.5) % Plt Count 161 (130-400) K/uL MPV 10.7 (9.4-12.4) fL Immature Gran % (Auto) 0.4 % Neut % (Auto) 83.0 % Lymph % (Auto) 11.9 % [place] % (Auto) 3.6 % Eos % (Auto) 0.7 % Baso % (Auto) 0.4 % Neut # (Auto) 8.11 H (1.40-6.50) K/uL Lymph # (Auto) 1.16 L (1.2-3.4) K/uL [place] # (Auto) 0.35 (0.11-0.59) K/uL Eos # (Auto) 0.07 (0-0.50) K/uL Baso # (Auto) 0.04 (0-0.2) K/uL Immature Gran # (Auto) 0.04 (0.01-0.20) K/uL Sodium 135 L (136-145) mmol/L Potassium 4.3 (3.5-5.1) mmol/L Chloride 101 (98-107) mmol/L Carbon Dioxide 26 (21-32) mmol/L Anion Gap 8 (3-11) BUN 22 (6-23) mg/dl Creatinine 0.89 (0.6-1.2) mg/dl Est Cr Clr Drug Dosing 72.9 ml/min Est GFR ( Amer) 76.1 ml/min Est GFR (Non-Af Amer) 65.7 ml/min BUN/Creatinine Ratio 24.7 H (10-20) Glucose 280 H (70-99(Fasting)) mg/dl Lactate (0.4-2.0) mmol/L Calcium 9.1 (8.5-10.1) mg/dl Total Bilirubin 1.4 H (0.2-1.0) mg/dl AST 38 (13-39) U/L ALT 26 (7-52) U/L Alkaline Phosphatase 96 (34-104) U/L Total Creatine Kinase 305 H (26-192) U/L Troponin I High Sens 4.8 (0-14) pg/ml Total Protein 7.9 (6.0-8.3) gm/dl Albumin 4.5 (3.4-5.0) gm/dl Globulin 3.4 (2.5-4.0) gm/dl Albumin/Globulin Ratio 1.3 (0.9-2) TSH (0.300-4.500) uIu/ml SARS-CoV-2, RNA, NAAT NEGATIVE (NEGATIVE) 10/05/22 10/05/22 Range/Units 07:21 07:21 WBC (4.8-10.8) K/ul RBC (4.20-5.40) M/uL Hgb (12.0-16.0) g/dl Hct (37.0-47.0) % MCV (80.0-100.0) fL MCH (25.0-34.0) pg MCHC (32.0-36.0) g/dL RDW Std Deviation (36.4-46.3) fL RDW Coeff of James (11.5-14.5) % Plt Count (130-400) K/uL MPV (9.4-12.4) fL Immature Gran % (Auto) % Neut % (Auto) % Lymph % (Auto) % [place] % (Auto) % Eos % (Auto) % Baso % (Auto) % Neut # (Auto) (1.40-6.50) K/uL Lymph # (Auto) (1.2-3.4) K/uL [place] # (Auto) (0.11-0.59) K/uL Eos # (Auto) (0-0.50) K/uL Baso # (Auto) (0-0.2) K/uL Immature Gran # (Auto) (0.01-0.20) K/uL Sodium (136-145) mmol/L Potassium (3.5-5.1) mmol/L Chloride (98-107) mmol/L Carbon Dioxide (21-32) mmol/L Anion Gap (3-11) BUN (6-23) mg/dl Creatinine (0.6-1.2) mg/dl Est Cr Clr Drug Dosing ml/min Est GFR ( Amer) ml/min Est GFR (Non-Af Amer) ml/min BUN/Creatinine Ratio (10-20) Glucose (70-99(Fasting)) mg/dl Lactate 1.1 (0.4-2.0) mmol/L Calcium (8.5-10.1) mg/dl Total Bilirubin (0.2-1.0) mg/dl AST (13-39) U/L ALT (7-52) U/L Alkaline Phosphatase (34-104) U/L Total Creatine Kinase (26-192) U/L Troponin I High Sens (0-14) pg/ml Total Protein (6.0-8.3) gm/dl Albumin (3.4-5.0) gm/dl Globulin (2.5-4.0) gm/dl Albumin/Globulin Ratio (0.9-2) TSH 1.282 (0.300-4.500) uIu/ml SARS-CoV-2, RNA, NAAT (NEGATIVE) Administered Medications Discontinued Medications Sodium Chloride (Nss 1000ml) 500 mls @ 999 mls/hr IV .Q31M ONE Stop: 10/05/22 07:44 Last Admin: 10/05/22 07:39 Dose: 999 mls/hr Documented By: MT Lisinopril (Lisinopril 10 Mg Tab) 10 mg PO NOW STA Stop: 10/05/22 07:35 Last Admin: 10/05/22 08:23 Dose: 10 mg Documented By: CLARISSA Ondansetron HCl (Ondansetron Inj 2 Mg/Ml 2 Ml Vial) 4 mg IV NOW STA Stop: 10/05/22 07:15 Last Admin: 10/05/22 07:39 Dose: 4 mg Documented By: CLARISSA Imaging Data Radiologist's Impression: Chest X-Ray 10/05/22 06:52 SINGLE VIEW CHEST CLINICAL HISTORY: Generalized weakness. FINDINGS: An AP, portable, upright chest radiograph is compared to study dated 05/03/2021. The cardiomediastinal silhouette is top normal for projection. Chronic interstitial thickening is previous. The lungs and pleural spaces are clear noting bibasilar scarring/atelectasis. No pneumothorax is seen. The skeletal structures are osteopenic. The bony thorax is grossly intact. Arthritic change is seen in the shoulders. IMPRESSION: No active disease in the chest. ACT 112: Negative or not required by law. Electronically signed by: Osorio Mensah M.D. 10/05/2022 8:[address] 10/05/22 07:24 CT SCAN OF THE BRAIN WITHOUT IV CONTRAST CLINICAL HISTORY: Generalized weakness. Nausea. Unsteady gait. COMPARISON STUDY: No priors. TECHNIQUE: Unenhanced axial CT scan of the brain is performed from the vertex to the skull base. A dose lowering technique was utilized adhering to the principles of ALARA. CT DOSE: 729.78 mGycm FINDINGS: Brain parenchyma: There is age-related involutional change noting mild subcortical and periventricular microangiopathic disease. There is no hemorrhage, mass effect, or evidence of acute territorial ischemia by CT criteria. Medeiros-white matter differentiation is preserved. No extra-axial fluid collection is seen. Ventricles, sulci, cisterns: Prominent secondary to involutional change. Intracranial vasculature: There is atherosclerotic calcification of the cavernous carotid and vertebral arteries. Calvarium: Unremarkable. Sinuses and mastoids: The paranasal sinuses are clear. The mastoid air cells are well pneumatized. Orbits: The bony orbits are grossly intact. IMPRESSION: There is no hemorrhage, mass effect, or evidence of acute territorial ischemia by CT criteria. ACT 112: Negative or not required by law. Electronically signed by: Osorio Mensah M.D. 10/05/2022 8:04 AM Discharge Plan Visit Data Chief Complaint: Weakness Stated Complaint: GENERAL WEAKNESS ED Provider: Abdulaziz Lassiter Discharge Problem: Unsteady gait, Nausea Patient Disposition: Being Evaluated by Hospitalist Forms Stand Alone Forms: My [facility] Prescriptions Prescriptions: No Action (DME) Ketostix Strip See Rx Instructions miscellaneous .MEDSUPPLY Qty: 25 5RF Rx Instructions: Check when blood sugars are > 240 for 4 hours or more (DME) OneTouch Verio test strips Strip See Rx Instructions .ROUTE .MEDSUPPLY Qty: 100 3RF Rx Instructions: Check blood sugars 1x a day (DME) Diabetic Shoes Misc See Rx Instructions .Route Qty: 1 0RF Rx Instructions: As directed. E11.610 Ozempic 0.25 mg or 0.5 mg(2 mg/1.5 mL) pen injector 0.5 mg subcut .Weekly Qty: 1.5 5RF atorvastatin 40 mg tablet See Rx Instructions .ROUTE .COMPLEX Qty: 90 3RF Dose Instruction: Take 1 tablet by mouth once daily Rx Instructions: Take 1 tablet by mouth once daily (DME) FreeStyle Inez 2 Sensor Kit See Rx Instructions .Route Qty: 7 3RF Rx Instructions: Change every 14 days gabapentin 300 mg capsule 300 mg PO HS Qty: 90 3RF levothyroxine 125 mcg tablet 125 mcg PO DAILY Qty: 90 3RF lisinopril 10 mg tablet 10 mg PO DAILY Qty: 90 3RF (DME) lancets [OneTouch Delica Lancets] 30 gauge misc See Rx Instructions .ROUTE .MEDSUPPLY Rx Instructions: Test blood sugar once daily PRN aspirin 81 mg tablet,delayed release (DR/EC) 81 mg PO DAILY omega 9-ywf-eqe-fish oil [Fish Oil] 1,200 (144-216) mg capsule 1 cap PO DAILY insulin glargine [Lantus Solostar U-100 Insulin] 100 unit/mL (3 mL) insulin pen 32 unit SQ HS Rx Instructions: may increase up to 45 insulin lispro 100 unit/mL insulin pen 50 unit subcut DAILY Rx Instructions: Inject 10-15 units with meals plus sliding scale; TDD 50 units meloxicam 15 mg tablet 15 mg PO DAILY Referrals Referrals: Enedelia Hamilton MD [Primary Care Provider] -
[2022-10-05 07:35] LABS: Basophils # (auto) 0.04 K/uL (0-0.2); Basophils % (auto) 0.4 %; Eosinophils # (auto) 0.07 K/uL (0-0.50); Eosinophils % (auto) 0.7 %; Hematocrit (blood only) 39.5 % (37.0-47.0); Hemoglobin 13.9 g/dl (12.0-16.0); Immature Granulocytes # (auto) 0.04 K/uL (0.01-0.20); Immature Granulocytes % (auto) 0.4 %; Lymphocytes # (auto) 1.16 K/uL (1.2-3.4); Lymphocytes % (auto) 11.9 %; Mean Corpuscular Hemoglobin 32.2 pg (25.0-34.0); Mean Corpuscular Hgb Conc 35.2 g/dL (32.0-36.0); Mean Corpuscular Volume 91.4 fL (80.0-100.0); Mean Platelet Volume 10.7 fL (9.4-12.4); Monocytes # (auto) 0.35 K/uL (0.11-0.59); Monocytes % (auto) 3.6 %; Neutrophils # (auto) 8.11 K/uL (1.40-6.50); Platelet Count 161 K/uL (130-400); RDW Coefficient of Variation 12.1 % (11.5-14.5); RDW Standard Deviation 40.9 fL (36.4-46.3); Red Blood Count 4.32 M/uL (4.20-5.40); White Blood Count 9.77 K/ul (4.8-10.8)
[2022-10-05 07:53] LABS: Albumin Globulin Ratio 1.3 (0.9-2); Albumin Level 4.5 gm/dl (3.4-5.0); BUN Creatinine Ratio 24.7 (10-20); Bilirubin,Total 1.4 mg/dl (0.2-1.0); Calcium 9.1 mg/dl (8.5-10.1); Creatinine Clr Calc Pharmacy 72.9 ml/min; Est GFR (African American) 76.1 ml/min; Est GFR (Non-African American) 65.7 ml/min; Globulin 3.4 gm/dl (2.5-4.0); Potassium 4.3 mmol/L (3.5-5.1); Total Protein 7.9 gm/dl (6.0-8.3)
[2022-10-05 07:58] LABS: Troponin I High Sensitivity 4.8 pg/ml (0-14)
--- NOTE | 2022-10-05 08:03 | XRay Report ---
SINGLE VIEW CHEST CLINICAL HISTORY: Generalized weakness. FINDINGS: An AP, portable, upright chest radiograph is compared to study dated 05/03/2021. The cardiom ediastinal silhouette is top normal for projection. Chronic interstitial thickening is previous. The lungs and pleural spaces are clear noting bibasilar scarring/atelectasis. No pneumothorax is seen. Th e skeletal structures are osteopenic. The bony thorax is grossly intact. Arthritic change is seen in the shoulders. IMPRESSION: No active disease in the chest. ACT 112: Negative or not required by law. Electronically signed by: Osorio Mensah M.D. 10/05/2022 8:02 AM
--- NOTE | 2022-10-05 08:07 | CT Scan Report ---
CT SCAN OF THE BRAIN WITHOUT IV CONTRAST CLINICAL HISTORY: Generalized weakness. Nausea. Unsteady gait. COMPARISON STUDY: No priors. TECHNIQUE: Unenhanced axial CT scan of the brain is performed from the vertex to the skull base. A do se lowering technique was utilized adhering to the principles of ALARA. CT DOSE: 729.78 mGycm FINDINGS: Brain parenchyma: There is age-related involutional change noting mild subcortical and periventricula r microangiopathic disease. There is no hemorrhage, mass effect, or evidence of acute territorial isc hemia by CT criteria. Medeiros-white matter differentiation is preserved. No extra-axial fluid collection is seen. Ventricles, sulci, cisterns: Prominent secondary to involutional change. Intracranial vasculature: There is atherosclerotic calcification of the cavernous carotid and vertebr al arteries. Calvarium: Unremarkable. Sinuses and mastoids: The paranasal sinuses are clear. The mastoid air cells are well pneumatized. Orbits: The bony orbits are grossly intact. IMPRESSION: There is no hemorrhage, mass effect, or evidence of acute territorial ischemia by CT benjamin fuller. ACT 112: Negative or not required by law. Electronically signed by: Osorio Mensah M.D. 10/05/2022 8:04 AM
--- NOTE | 2022-10-05 08:31 | History & Physical Report ---
Date of Service October 05, 2022 Assessment & Plan (1) Pre-syncope: Plan: patient at home awoken from sleep w/ nausea and associated gait unsteadiness ambulating at home concerning for CVA. Also recently upped her Ozempic to 0.5mg last week as new medication. CT head negative Monitor on [employer]-tele for any arrhythmia Check MRI IAC given reports of tinnitus ECHO checked given + murmur on exam (?aortic stenosis/pre-syncope in setting of dehydration) Check UA given reports cloudy urine CK 305, will hold statin. TSH wnl -- got 1L IVF bolus, will continue NS @ 80cc/hr Supportive care IVF NS @ 80cc/hr TB 1.1, ALP wnl -- denies any abd pain but can consider RUQ US for further eval if rest of work-up unrevealing Blood pressure control -- given lisinopril 10mg x1 now, hydralazine prn to be available and started amlodipine 5mg and monitor. EKG w/o ischemic changes Will need PT/OT evals --? BPPV underlying however denied room spinning sensation and will look for schwannoma w/ MRI IAC (2) Hypertension: Plan: BP significantly elevated on admit w/o evidence for end organ damage Lisinopril 10mg x 1 now, 1L IVF in ER Hydralazine prn, amlodipine 5mg x 1 now and monitor May need to increase her lisinopril as well -- per patient prior was well controlled in office w/ exception most recently however she has not checked them at home rec continued monitoring and patient to obtain cuff to check at home (3) Unsteady gait: Plan: combination -- has walker at home, hx charcot foot but hadn't needed to use that often. Seen w/ walker coming back from bathroom w/o issue but reporting unsteady Check UA/MRI as above Check B12 w/ AM labs given baseline neuropathy, Lyme PT/OT consulted (4) Nausea: Plan: on admit, zofran provided and no further nausea at present zofran prn monitor -- denied any reflux symptoms but could put on pepcid if issues. (5) Type 2 diabetes mellitus treated with insulin: Plan: BSG 305 on admit glargine 10u now, schedule 10 uBID to start Hold home regimen, BSG AC/HS and SSI recently increased ozempic as above as outpatient last week to 0.5mg check A1c w/ AM labs DM diet monitor BSGs on repeat (6) Hypothyroidism: Plan: TSH wnl, remains on 125mcg daily replacement (7) Dyslipidemia: Plan: hold statin given elevated CK 305 on labs and repeat in AM (8) Diabetic peripheral neuropathy associated with type 2 diabetes mellitus: Plan: as above check B12 w/ AM labs as well History of Present Illness Chief Complaint: unsteady gait, nausea Primary Care Provider: Enedelia Hamilton MD 71yo female with PMHx significant for HTN, HLD, DM II, Hypothyroidism presented with unsteady gait and stumbling to the bathroom prior to admission along with associated nausea. Concerned for a stroke, she came to ER. BP 196/[address] head negative on admit, CXR clear. Patient in room with her sister who lives by. Patient currently ambulating back from bathroom with a walker which she has at home but doesn't always have to use. She states she woke up this morning and was feeling nauseated and had difficulty with ambulating but did not fall. No abdominal pain or vomiting. She has not vomited since age 7-8. Denies any headache, NEVER has had any headaches. No fevers/chills at home. [place] almost like she was going to pass out. She does state she takes ozempic and that weight loss isn't true as she has actually gained a pound since going up to the 0.5mg last Wednesday. Last BM this morning and prior to that moved them the day before. She denies checking her BP at home but at office visits is usually fairly low with the exception of last visit with Dr Lema. She has a history of charcot foot and follows with Dr Parks. She also has rx for meloxicam on medications, which she was given by orthopedics for right knee pain but does not take very often. Baseline neuropathy, also with DM related retinopathy but denied any worsening visual symptoms. On gabapentin 300mg HS. Note no increased urinary frequency or burning with urination but that her urine is typically cloudy. Does report hx tinnitus. She does note insulin adjustment to 23u daily in three doses. Hx hypothyroidism and taking her medications appropriately. Denies any recent chills/fevers, chest pain, shortness of breath, abdominal pain or weakness. CBC w/ WBC 9.7k, L shift. Chemistry w/ Na 135, BUN/Cr 22/0.89, Glu 280. TB 1.4, ALP 96. CK 305 TSH 1.282 Was given Zofran 4mg IV, lisinopril 10mg PO, NSS 1L bolus Currently reporting no nausea, but still having gait unsteadiness. Allergies Allergy/AdvReac Type Severity Reaction Status Date / Time bee venom protein (honey bee) Allergy Severe ANAPHYLAXIS Verified 10/12/22 10:49 lovastatin [From Mevacor] Allergy Unknown Verified 10/12/22 10:49 Home Medications Medication Instructions Recorded Confirmed Type aspirin 81 mg tablet,delayed 81 mg PO DAILY 03/07/19 10/12/22 History release omega 0-ohb-idm-fish oil 1,200 mg 1 cap PO DAILY 03/18/21 10/12/22 History (144 mg-216 mg) capsule (Fish Oil) acetone (urine) test (Ketostix #25 ea 05/07/21 10/12/22 Rx strips) blood sugar diagnostic (OneTouch #100 ea 05/07/21 10/12/22 Rx Verio test strips) Diabetic Shoes #1 ea 10/28/21 10/12/22 Rx atorvastatin 40 mg tablet See Rx Instructions .Route 01/01/22 10/12/22 Rx .COMPLEX #90 tabs flash glucose sensor (FreeStyle #7 ea 01/01/22 10/12/22 Rx Inez 2 Sensor kit) gabapentin 300 mg capsule 300 mg PO HS #90 caps 01/01/22 10/12/22 Rx levothyroxine 125 mcg tablet 125 mcg PO DAILY #90 tabs 01/01/22 10/12/22 Rx lancets 30 gauge (OneTouch Delica 05/04/22 10/12/22 History Lancets) insulin glargine 100 unit/mL (3 32 unit subcut HS 09/03/22 10/12/22 History mL) subcutaneous pen (Lantus Solostar U-100 Insulin) insulin lispro 100 unit/mL 50 unit subcut DAILY 09/03/22 10/12/22 History subcutaneous pen amlodipine 2.5 mg tablet 2.5 mg PO PM #30 tabs 10/06/22 10/12/22 Rx lisinopril 10 mg tablet 10 mg PO DAILY #90 tabs 10/07/22 10/12/22 Rx Past Med/Surg History Medical History Bakers cyst COVID-19 DKA (diabetic ketoacidosis) Dyslipidemia Hypertension Hypothyroidism Obesity (BMI 30-39.9) Type 2 diabetes mellitus treated with insulin Surgical History H/O thyroidectomy History of back surgery Family History Mother Arthritis Malignant neoplasm of urinary bladder Brother Cardiac disorder Sister Back pain Father Myocardial infarction Denies family history of Ovarian cancer Prostate cancer Breast cancer Colorectal cancer Social History Smoking Status: Never smoker Second Hand Exposure: No; Hx Alcohol Use: No Hx Substance Use: No Preferred Language: Pashto Communication Ability: Effective Visual Impairment: Limited Hearing Ability: Normal Hair Boiler Required: No Beliefs That Will Affect Care: None marital status: Single Current Living Situation: Alone current occupational status: retired current occupation: worked at [employer] in [employer] Feels Safe at Home: Yes Childhood Exposure to Second-Hand Smoke: No Dental Care, Regularly: Yes Physical Activity Frequency: Does not Exercise Physical Activity Frequency Comment: not currently due to foot problem Seatbelt Use: always Sunscreen Use: Yes Assistive Devices: None Review of Systems Review of Systems: All systems reviewed & are unremarkable except as noted in HPI & below Physical Exam Physical Exam: General: WD/WN obese female witness walking back from bathroom with walker -- slow and steady gait, no assistance. NAD, general pallor HEENT; head normocephalic, atraumatic, mm slightly dry, pupils equal/reactive, trachea midline, prior scar noted, EOMI Resp: CTAB, slight diminished in the bases, no w/c, on room air 98% CV: RRR, occasional PVC, +murmur, trace LE edema, calves tender due to reported neuropathy, no significant swelling from side to side, pulses palpable, cap refill wnl GI: +BS, soft/NT : no sandoval MSK/Neuro: Charcot appearance to foot, moves all extremities, no focal deficit, no pronator drift, no slurred speech/facial droop Psych: Alert, oriented , pleasant and cooperative Results & Data Results & Data ([facility]) Vital Signs (Past 12 Hours) Vital Signs Temp Pulse Resp BP Pulse Ox O2 Del Method 10/05/22 07:31 68 18 186/93 H 97 10/05/22 07:03 67 16 196/89 H 97 10/05/22 06:56 68 10/05/22 06:52 36.4 C L 77 14 196/100 H 99 Room Air Laboratory Results 10/05/22 10/05/22 10/05/22 Range/Units 08:35 07:21 07:21 WBC (4.8-10.8) K/ul RBC (4.20-5.40) M/uL Hgb (12.0-16.0) g/dl Hct (37.0-47.0) % MCV (80.0-100.0) fL MCH (25.0-34.0) pg MCHC (32.0-36.0) g/dL RDW Std Deviation (36.4-46.3) fL RDW Coeff of James (11.5-14.5) % Plt Count (130-400) K/uL MPV (9.4-12.4) fL Immature Gran % (Auto) % Neut % (Auto) % Lymph % (Auto) % [place] % (Auto) % Eos % (Auto) % Baso % (Auto) % Neut # (Auto) (1.40-6.50) K/uL Lymph # (Auto) (1.2-3.4) K/uL [place] # (Auto) (0.11-0.59) K/uL Eos # (Auto) (0-0.50) K/uL Baso # (Auto) (0-0.2) K/uL Immature Gran # (Auto) (0.01-0.20) K/uL Sodium (136-145) mmol/L Potassium (3.5-5.1) mmol/L Chloride (98-107) mmol/L Carbon Dioxide (21-32) mmol/L Anion Gap (3-11) BUN (6-23) mg/dl Creatinine (0.6-1.2) mg/dl Est Cr Clr Drug Dosing ml/min Est GFR ( Amer) ml/min Est GFR (Non-Af Amer) ml/min BUN/Creatinine Ratio (10-20) Glucose (70-99(Fasting)) mg/dl Lactate (0.4-2.0) mmol/L Calcium (8.5-10.1) mg/dl Total Bilirubin (0.2-1.0) mg/dl AST (13-39) U/L ALT (7-52) U/L Alkaline Phosphatase (34-104) U/L Total Creatine Kinase (26-192) U/L Troponin I High Sens (0-14) pg/ml Total Protein (6.0-8.3) gm/dl Albumin (3.4-5.0) gm/dl Globulin (2.5-4.0) gm/dl Albumin/Globulin Ratio (0.9-2) TSH 1.282 (0.300-4.500) uIu/ml Urine Color Pending Urine Appearance Pending Urine pH Pending Ur Specific [place] Pending Urine Protein Pending Urine Glucose (UA) Pending Urine Ketones Pending Urine Blood Pending Urine Nitrite Pending Urine Bilirubin Pending Urine Urobilinogen Pending Ur Leukocyte Esterase Pending Lyme Disease IgG Ab Pending Lyme Disease IgM Ab Pending SARS-CoV-2, RNA, NAAT (NEGATIVE) 10/05/22 10/05/22 10/05/22 Range/Units 07:21 07:21 07:21 WBC 9.77 (4.8-10.8) K/ul RBC 4.32 (4.20-5.40) M/uL Hgb 13.9 (12.0-16.0) g/dl Hct 39.5 (37.0-47.0) % MCV 91.4 (80.0-100.0) fL MCH 32.2 (25.0-34.0) pg MCHC 35.2 (32.0-36.0) g/dL RDW Std Deviation 40.9 (36.4-46.3) fL RDW Coeff of James 12.1 (11.5-14.5) % Plt Count 161 (130-400) K/uL MPV 10.7 (9.4-12.4) fL Immature Gran % (Auto) 0.4 % Neut % (Auto) 83.0 % Lymph % (Auto) 11.9 % [place] % (Auto) 3.6 % Eos % (Auto) 0.7 % Baso % (Auto) 0.4 % Neut # (Auto) 8.11 H (1.40-6.50) K/uL Lymph # (Auto) 1.16 L (1.2-3.4) K/uL [place] # (Auto) 0.35 (0.11-0.59) K/uL Eos # (Auto) 0.07 (0-0.50) K/uL Baso # (Auto) 0.04 (0-0.2) K/uL Immature Gran # (Auto) 0.04 (0.01-0.20) K/uL Sodium 135 L (136-145) mmol/L Potassium 4.3 (3.5-5.1) mmol/L Chloride 101 (98-107) mmol/L Carbon Dioxide 26 (21-32) mmol/L Anion Gap 8 (3-11) BUN 22 (6-23) mg/dl Creatinine 0.89 (0.6-1.2) mg/dl Est Cr Clr Drug Dosing 72.9 ml/min Est GFR ( Amer) 76.1 ml/min Est GFR (Non-Af Amer) 65.7 ml/min BUN/Creatinine Ratio 24.7 H (10-20) Glucose 280 H (70-99(Fasting)) mg/dl Lactate 1.1 (0.4-2.0) mmol/L Calcium 9.1 (8.5-10.1) mg/dl Total Bilirubin 1.4 H (0.2-1.0) mg/dl AST 38 (13-39) U/L ALT 26 (7-52) U/L Alkaline Phosphatase 96 (34-104) U/L Total Creatine Kinase 305 H (26-192) U/L Troponin I High Sens 4.8 (0-14) pg/ml Total Protein 7.9 (6.0-8.3) gm/dl Albumin 4.5 (3.4-5.0) gm/dl Globulin 3.4 (2.5-4.0) gm/dl Albumin/Globulin Ratio 1.3 (0.9-2) TSH (0.300-4.500) uIu/ml Urine Color Urine Appearance Urine pH Ur Specific [place] Urine Protein Urine Glucose (UA) Urine Ketones Urine Blood Urine Nitrite Urine Bilirubin Urine Urobilinogen Ur Leukocyte Esterase Lyme Disease IgG Ab Lyme Disease IgM Ab SARS-CoV-2, RNA, NAAT (NEGATIVE) 10/05/22 Range/Units 07:00 WBC (4.8-10.8) K/ul RBC (4.20-5.40) M/uL Hgb (12.0-16.0) g/dl Hct (37.0-47.0) % MCV (80.0-100.0) fL MCH (25.0-34.0) pg MCHC (32.0-36.0) g/dL RDW Std Deviation (36.4-46.3) fL RDW Coeff of James (11.5-14.5) % Plt Count (130-400) K/uL MPV (9.4-12.4) fL Immature Gran % (Auto) % Neut % (Auto) % Lymph % (Auto) % [place] % (Auto) % Eos % (Auto) % Baso % (Auto) % Neut # (Auto) (1.40-6.50) K/uL Lymph # (Auto) (1.2-3.4) K/uL [place] # (Auto) (0.11-0.59) K/uL Eos # (Auto) (0-0.50) K/uL Baso # (Auto) (0-0.2) K/uL Immature Gran # (Auto) (0.01-0.20) K/uL Sodium (136-145) mmol/L Potassium (3.5-5.1) mmol/L Chloride (98-107) mmol/L Carbon Dioxide (21-32) mmol/L Anion Gap (3-11) BUN (6-23) mg/dl Creatinine (0.6-1.2) mg/dl Est Cr Clr Drug Dosing ml/min Est GFR ( Amer) ml/min Est GFR (Non-Af Amer) ml/min BUN/Creatinine Ratio (10-20) Glucose (70-99(Fasting)) mg/dl Lactate (0.4-2.0) mmol/L Calcium (8.5-10.1) mg/dl Total Bilirubin (0.2-1.0) mg/dl AST (13-39) U/L ALT (7-52) U/L Alkaline Phosphatase (34-104) U/L Total Creatine Kinase (26-192) U/L Troponin I High Sens (0-14) pg/ml Total Protein (6.0-8.3) gm/dl Albumin (3.4-5.0) gm/dl Globulin (2.5-4.0) gm/dl Albumin/Globulin Ratio (0.9-2) TSH (0.300-4.500) uIu/ml Urine Color Urine Appearance Urine pH Ur Specific [place] Urine Protein Urine Glucose (UA) Urine Ketones Urine Blood Urine Nitrite Urine Bilirubin Urine Urobilinogen Ur Leukocyte Esterase Lyme Disease IgG Ab Lyme Disease IgM Ab SARS-CoV-2, RNA, NAAT NEGATIVE (NEGATIVE) Diagnostic Findings Chest X-Ray 10/05/22 06:52 SINGLE VIEW CHEST CLINICAL HISTORY: Generalized weakness. FINDINGS: An AP, portable, upright chest radiograph is compared to study dated 05/03/2021. The cardiomediastinal silhouette is top normal for projection. Chronic interstitial thickening is previous. The lungs and pleural spaces are clear noting bibasilar scarring/atelectasis. No pneumothorax is seen. The skeletal structures are osteopenic. The bony thorax is grossly intact. Arthritic change is seen in the shoulders. IMPRESSION: No active disease in the chest. ACT 112: Negative or not required by law. Electronically signed by: Osorio Mensah M.D. 10/05/2022 8:[address] 10/05/22 07:24 CT SCAN OF THE BRAIN WITHOUT IV CONTRAST CLINICAL HISTORY: Generalized weakness. Nausea. Unsteady gait. COMPARISON STUDY: No priors. TECHNIQUE: Unenhanced axial CT scan of the brain is performed from the vertex to the skull base. A dose lowering technique was utilized adhering to the principles of ALARA. CT DOSE: 729.78 mGycm FINDINGS: Brain parenchyma: There is age-related involutional change noting mild subcortical and periventricular microangiopathic disease. There is no hemorrhage, mass effect, or evidence of acute territorial ischemia by CT criteria. Medeiros-white matter differentiation is preserved. No extra-axial fluid collection is seen. Ventricles, sulci, cisterns: Prominent secondary to involutional change. Intracranial vasculature: There is atherosclerotic calcification of the cavernous carotid and vertebral arteries. Calvarium: Unremarkable. Sinuses and mastoids: The paranasal sinuses are clear. The mastoid air cells are well pneumatized. Orbits: The bony orbits are grossly intact. IMPRESSION: There is no hemorrhage, mass effect, or evidence of acute territorial ischemia by CT criteria. ACT 112: Negative or not required by law. Electronically signed by: Osorio Mensah M.D. 10/05/2022 8:04 AM Supervising Physician Co-Signing Physician Notes Patient seen and examined at bedside. I obtained a history and physical examination during face to face encounter with the patient. I discussed plan of care with ANEL Turcios and patient. I reviewed above note and agree with it. Patient will be admitted with presyncope. WIll place on tele monitor. check MRI as patient had tinnitus PG Care Time/CCT Total # of Minutes Spent Total Time Spent with Patient: Total time spent is greater than 50% in coordination of care (as documented) at patient's floor/unit and/or counseling patient: Coding Level of Care Code 09836 INT INP/OBS CARE MIN Diagnoses Pre-syncope R55 Hypertension I10 Hypertension type: essential hypertension Unsteady gait R26.81 Nausea R11.0 Type 2 diabetes mellitus treated with insulin E11.9; Z79.4 Hypothyroidism E03.9 Hypothyroidism type: acquired Dyslipidemia E78.5 Diabetic peripheral neuropathy associated with type 2 diabetes mellitus E11.42 (2) Hypertension Hypertension type: essential hypertension Qualified Code(s): I10 - Essential (primary) hypertension (6) Hypothyroidism Hypothyroidism type: acquired Qualified Code(s): E03.9 - Hypothyroidism, unspecified
[2022-10-05 09:14] LABS: Appearance Urine Cloudy (Clear); Bacteria Urine Automated 4+ (Negative); Bilirubin Urine Negative (Negative); Blood Urine Negative (Negative); Color Urine Yellow; Epithelial Cell Urine Auto 0-5 /lpf (0-5); Glucose Urine UA 3+ (Negative); Ketones Urine 1+ (Negative); Leukocyte Esterase Urine Trace (Negative); Nitrite Urine Negative (Negative); Protein Urine 1+ (Negative); RBC Urine Automated 0-4 /hpf (0-4); Specific Gravity Urine 1.015 (1.000-1.030); Urobilinogen Urine Negative (Negative)
[2022-10-05 10:16] LABS: Lyme Ab IgG w/WB Rflx Negative (Negative); Lyme Ab IgM w/WB Rflx Negative (Negative)
[2022-10-05] MEDS ORDERED: amLODIPine BESYLATE 5 MG TAB PO ONE (10:35)
[2022-10-05] MEDS ORDERED: SODIUM CHLORIDE 0.9% 1000ML 1,000 ML IV SCH (10:35)
[2022-10-05] MEDS ORDERED: ONDANSETRON INJ 2 MG/ML 2 ML VIAL IV PRN (10:35)
[2022-10-05] MEDS ORDERED: DEXTROSE 50% 50 ML SYRINGE IV PRN (10:35)
[2022-10-05] MEDS ORDERED: ACETAMINOPHEN 325 MG TAB PO PRN (10:35)
[2022-10-05] MEDS ORDERED: CARBOHYDRATES FOR HYPOGLYCEMIA PO PRN (10:35)
[2022-10-05] MEDS ORDERED: GLUCOSE 40% GEL 15 GM TUBE PO PRN (10:35)
[2022-10-05] MEDS ORDERED: GLUCAGON FOR INJ 1 MG VIAL SQ PRN (10:35)
[2022-10-05] MEDS ORDERED: GLUCOSE 10 TAB/TUBE PO PRN (10:35)
[2022-10-05] MEDS ORDERED: LANTUS PER UNIT CHARGE SQ SCH (10:35)
[2022-10-05] MEDS ORDERED: hydrALAZINE HCL 20 MG/ML VIAL IV PRN (10:35)
[2022-10-05 11:24] LABS: Magnesium 2.1 mg/dl (1.7-2.4)
[2022-10-05] MEDS: INSULIN ASPART PER UNIT CHARGE SC SCH ×3 (12:09→20:35)
[2022-10-05] MEDS ORDERED: PHARMACY GLYCEMIC MGMT CONSULT PRN (14:56)
--- NOTE | 2022-10-05 17:28 | XCELERA ---
[id number]
[2022-10-05] MEDS ORDERED: GADOBUTROL 65ML VIAL IV ONE (18:18)
[2022-10-05] MEDS ORDERED: LANTUS PER UNIT CHARGE SQ ONE (21:00)
[2022-10-05] MEDS ORDERED: GABAPENTIN 300 MG CAP PO SCH (21:00)
[2022-10-06] MEDS: INSULIN ASPART PER UNIT CHARGE SC SCH ×4 (00:34→12:34)
--- NOTE | 2022-10-06 05:54 | Electrocardiogram Report ---
Test Reason : Blood Pressure : / mmHG Vent. Rate : 065 BPM Atrial Rate : 065 BPM P-R Int : 170 ms QRS Dur : 090 ms QT Int : 450 ms P-R-T Axes : 048 008 028 degrees QTc Int : 468 ms Sinus rhythm with Premature supraventricular complexes Cannot rule out Anterior infarct (cited on or before 05-OCT-2022) Abnormal ECG When compared with ECG of 03-MAY-2021 20:31, Premature supraventricular complexes are now Present Questionable change in initial forces of Septal leads ST no longer depressed in Anterolateral leads Confirmed by Nicolas Ricardo ([id number]) on 10/06/2022 5:54:48 AM Referred By: Confirmed By:Nicolas Ricardo
[2022-10-06] MEDS ORDERED: LEVOTHYROXINE SODIUM 125 MCG TABLET PO SCH (06:30)
--- NOTE | 2022-10-06 07:31 | Communication Note ---
Date of Service: October 06, 2022 MRI IAC; no statrad report overnight. Dayshift to follow radiology read.
--- NOTE | 2022-10-06 07:43 | Magnetic Resonance Report ---
MR brain IAC wo/w con CLINICAL HISTORY: unsteady gait, tinnitus, ?schwannoma TECHNIQUE: Multiplanar and multisequence MR images of the brain were obtained prior to and following administration of gadolinium contrast. Comparison: None available at the time of this dictation. FINDINGS: No abnormal restricted diffusion is identified. Foci of T2 and FLAIR hyperintensity are noted in the paraventricular areas consistent with chronic small vessel ischemic disease. Ex vacuo ventriculomegal y and sulcal enlargement is noted compatible with diffuse encephalomalacia. No mass or abnormal enhan cement is seen. There is no mass effect or midline shift. There is no evidence of acute intraparenchy mal hemorrhage. No extra axial fluid collections are seen. The corpus callosum, pituitary gland, and cerebellar tonsils appear grossly unremarkable. No abnormalities of the internal auditory canal or in ner ear bilaterally. Cranial nerves VII and VIII are normal. Flow voids of the major intracranial arterial vessels are identified. The imaged portions of the para nasal sinuses, mastoid air cells, and orbits are unremarkable. IMPRESSION: No acute abnormalities and in particular no evidence of abnormality in cranial nerves VII and VIII. N o inner or middle ear abnormality. ACT 112: Negative or not required by law. Electronically signed by: Romeo Oviedo M.D. 10/06/2022 7:41 AM
[2022-10-06 08:01] LABS: Basophils # (auto) 0.06 K/uL (0-0.2); Basophils % (auto) 0.6 %; Eosinophils # (auto) 0.25 K/uL (0-0.50); Eosinophils % (auto) 2.7 %; Hematocrit (blood only) 37.4 % (37.0-47.0); Hemoglobin 12.9 g/dl (12.0-16.0); Immature Granulocytes # (auto) 0.02 K/uL (0.01-0.20); Immature Granulocytes % (auto) 0.2 %; Lymphocytes # (auto) 2.06 K/uL (1.2-3.4); Lymphocytes % (auto) 21.9 %; Mean Corpuscular Hemoglobin 31.8 pg (25.0-34.0); Mean Corpuscular Hgb Conc 34.5 g/dL (32.0-36.0); Mean Corpuscular Volume 92.1 fL (80.0-100.0); Mean Platelet Volume 10.8 fL (9.4-12.4); Monocytes # (auto) 0.81 K/uL (0.11-0.59); Monocytes % (auto) 8.6 %; Neutrophils # (auto) 6.22 K/uL (1.40-6.50); Platelet Count 187 K/uL (130-400); RDW Coefficient of Variation 12.3 % (11.5-14.5); RDW Standard Deviation 41.5 fL (36.4-46.3); Red Blood Count 4.06 M/uL (4.20-5.40); White Blood Count 9.42 K/ul (4.8-10.8)
[2022-10-06 08:18] LABS: Estimated Average Glucose 157 mg/dl; Hemoglobin A1C 7.1 % (4.5-5.6)
[2022-10-06 08:40] LABS: BUN Creatinine Ratio 22.2 (10-20); Bilirubin Direct 0.3 mg/dl (0-0.2); Bilirubin,Total 1.6 mg/dl (0.2-1.0); Calcium 8.7 mg/dl (8.5-10.1); Creatinine Clr Calc Pharmacy 65.6 ml/min; Est GFR (African American) 66.9 ml/min; Est GFR (Non-African American) 57.7 ml/min; Magnesium 1.9 mg/dl (1.7-2.4); Potassium 4.5 mmol/L (3.5-5.1); Total Protein 7.1 gm/dl (6.0-8.3)
[2022-10-06] MEDS ORDERED: amLODIPine BESYLATE 5 MG TAB PO SCH (09:00)
[2022-10-06] MEDS ORDERED: ASPIRIN 81 MG ECTAB PO SCH (09:00)
[2022-10-06] MEDS ORDERED: LANTUS PER UNIT CHARGE SQ SCH ×2 (09:00→21:00)
[2022-10-06] MEDS ORDERED: lisinopril 10 MG TAB PO SCH (09:00)
--- NOTE | 2022-10-06 09:02 | Pharmacy Report ---
Pharmacy Glycemic Short Note 2 - Date of Service October 06, 2022 - Glycemic Short BSG Results (Last 24 hours): 10/05/22 10/05/22 10/05/22 10:55 10:58 16:46 Glucose POC Glucose 305 H* 321 H* 327 H* 10/05/22 10/06/22 10/06/22 20:08 00:24 03:39 Glucose POC Glucose 244 H 166 H 110 H 10/06/22 10/06/22 07:34 07:58 Glucose 189 H POC Glucose 199 H OUTPATIENT ANTIDIABETIC REGIMEN: * Lantus 32 units HS * Novolog 13 units with breakfast and lunch and 8 units with dinner * semaglutide 0.5mg weekly HbA1C: 7.2 (09/01/22) ASSESSMENT: * Pt is a 71 year old female admitted in setting of pre-syncopal episode. History of DM2. Pharmacy consulted to assist with glycemic management while admitted. * BSGs [phone]/dL since admission. Received 35 units of basal and 26 units of bolus insulin yesterday. * Currently ordered a diet- other stressors stable. * Received 10 units Lantus yesterday AM and dose was increased to 25 units last evening. Will continue BID dosing as basal is titrated as fasting BSG this AM elevated to 199mg/dL. Novolog moderate stress scale. PLAN FOR INPATIENT GLYCEMIC CONTROL: * Hold outpatient oral diabetes medications * Basal insulin * Lantus 20units qAM + HS scale * Bolus insulin * NovoLog per scale ACHS or Q6hrs while NPO * Goal Range: Low 110mg/dL - High 140mg/dL * Correction Factor: 25 mg/dL/unit * Nutritional / Prandial insulin per carb ratio of 1 unit per 7 grams CHO consumed
--- NOTE | 2022-10-06 14:51 | Ultrasound Report ---
ULTRASOUND OF THE CAROTID ARTERIES CLINICAL HISTORY: presyncope COMPARISON: None available at the time of this dictation. TECHNIQUE: Real-time, grayscale, and color Doppler sonography of the carotid arteries is performed. I mages are reviewed in the transverse and longitudinal planes. FINDINGS: The carotid arteries are patent bilaterally and demonstrate antegrade flow. There is moderate atheros clerotic plaque on the right and moderate atherosclerotic plaque on the left. Normal doppler arterial waveforms are seen throughout. Velocity measurements are listed below. Common carotid peak systolic velocity (cm/sec): RIGHT: 62 LEFT: 52 ICA peak systolic velocity (cm/sec): RIGHT: 65 LEFT: 80 ICA/CC peak systolic ratio: RIGHT: 1.0 LEFT: 1.3 Antegrade flow was shown in the vertebral arteries. The external carotid arteries are patent. IMPRESSION: 1. There is no sonographic evidence of hemodynamically significant stenosis in the right or left car otid arterial system. 2. Antegrade flow is shown in the vertebral arteries. Society of Radiologists in Ultrasound consensus guidelines: Normal: ICA PSV is <125 cm/sec and no plaque or intimal thickening is visible sonographically additional criteria include ICA/CCA PSV ratio <2.0 and ICA EDV <40 cm/sec <50% ICA stenosis: ICA PSV is <125 cm/sec and plaque or intimal thickening is visible sonographically additional criteria include ICA/CCA PSV ratio <2.0 and ICA EDV <40 cm/sec 50-69% ICA stenosis: ICA PSV is 125-230 cm/sec and plaque is visible sonographically additional criteria include ICA/CCA PSV ratio of 2.0-4.0 and ICA EDV of 40-100 cm/sec ?70% ICA stenosis but less than near occlusion: ICA PSV is >230 cm/sec and visible plaque and luminal narrowing are seen at slater-scale and color Dopp ler ultrasound (the higher the Doppler parameters lie above the threshold of 230 cm/sec, the greater the likelihood of severe disease) additional criteria include ICA/CCA PSV ratio >4 and ICA EDV >100 cm/sec ACT 112: Negative or not required by law. Electronically signed by: Romeo Oviedo M.D. 10/06/2022 2:50 PM
[2022-10-06 15:11] VITALS: PULSE 71; TEMP 98.2; O2SAT 98
[2022-10-06 16:47] VITALS: BP 130/78
--- NOTE | 2022-10-15 09:13 | Discharge Summary ---
Date of Service October 07, 2022 Admission HPI Per Admitting Provider 71yo female with PMHx significant for HTN, HLD, DM II, Hypothyroidism presented with unsteady gait and stumbling to the bathroom prior to admission along with associated nausea. Concerned for a stroke, she came to ER. BP 196/[address] head negative on admit, CXR clear. Patient in room with her sister who lives by. Patient currently ambulating back from bathroom with a walker which she has at home but doesn't always have to use. She states she woke up this morning and was feeling nauseated and had difficulty with ambulating but did not fall. No abdominal pain or vomiting. She has not vomited since age 7-8. Denies any headache, NEVER has had any headaches. No fevers/chills at home. [place] almost like she was going to pass out. She does state she takes ozempic and that weight loss isn't true as she has actually gained a pound since going up to the 0.5mg last Wednesday. Last BM this morning and prior to that moved them the day before. She denies checking her BP at home but at office visits is usually fairly low with the exception of last visit with Dr Lema. She has a history of charcot foot and follows with Dr Parks. She also has rx for meloxicam on medications, which she was given by orthopedics for right knee pain but does not take very often. Baseline neuropathy, also with DM related retinopathy but denied any worsening visual symptoms. On gabapentin 300mg HS. Note no increased urinary frequency or burning with urination but that her urine is typically cloudy. Does report hx tinnitus. She does note insulin adjustment to 23u daily in three doses. Hx hypothyroidism and taking her medications appropriately. Denies any recent chills/fevers, chest pain, shortness of breath, abdominal pain or weakness. CBC w/ WBC 9.7k, L shift. Chemistry w/ Na 135, BUN/Cr 22/0.89, Glu 280. TB 1.4, ALP 96. CK 305 TSH 1.282 Was given Zofran 4mg IV, lisinopril 10mg PO, NSS 1L bolus Currently reporting no nausea, but still having gait unsteadiness. Principal Diagnosis presyncope secondary to malignany hypertension (hypertensive urgency) Discharge Exam General: WD/WN obese female witness walking back from bathroom with walker --PAD, HEENT; head normocephalic, atraumatic, mm slightly dry, pupils equal/reactive, trachea midline, prior scar noted, EOMI Resp: CTAB, slight diminished in the bases, no w/c, on room air 98% CV: RRR, occasional PVC, +murmur, trace LE edema, calves tender due to reported neuropathy, no significant swelling from side to side, pulses palpable, cap ref ill wnl GI: +BS, soft/NT : no sandoval MSK/Neuro: Charcot appearance to foot, moves all extremities, no focal deficit, no pronator drift, no slurred speech/facial droop Psych: Alert, oriented , pleasant and cooperative Discharge Data Allergies Allergy/AdvReac Type Severity Reaction Status Date / Time bee venom protein (honey bee) Allergy Severe ANAPHYLAXIS Verified 10/12/22 10:49 lovastatin [From Mevacor] Allergy Unknown Verified 10/12/22 10:49 Consultations 10/05/22 08:09 ED Decision to Admit Stat Ordered Studies 10/05/22 07:24 CT head/brain wo con Stat 10/05/22 09:39 MR brain IAC wo/w con Urgent 10/06/22 09:56 Carotid duplex [US carotid doppler BI] Routine Hospital Course (1) Pre-syncope: patient at home awoken from sleep w/ nausea and associated gait unsteadiness ambulating at home concerning for CVA. Also recently upped her Ozempic to 0.5mg last week as new medication. CT head negative Monitor on [employer] for any arrhythmia Check MRI IAC given reports of tinnitus: this was negative. ECHO checked given + murmur on exam Check UA given reports cloudy urine: however patient remained asymptomatic CK 305, will hold statin. TSH wnl -- got 1L IVF bolus, will continue NS @ 80cc/hr Supportive care IVF NS @ 80cc/hr TB 1.1, ALP wnl -- denies any abd pain but can consider RUQ US for further eval if rest of work-up unrevealing On folllowing day, her symptoms imprved. Perhaps her presyncope was related to her elevated blood pressure. NO end organ damage noted. will increase her BP meds as stated in the instructions below. (2) Hypertension: BP significantly elevated on admit w/o evidence for end organ damage Lisinopril 10mg x 1 now, 1L IVF in ER Hydralazine prn, amlodipine 5mg x 1 now and monitor added amlodipine as stated below and will maintain lsinopril, may require increasing to 20 mg but will defer to PCP Will also recommend holding her meloxicam as this could increase her BP. (3) Unsteady gait: combination -- has walker at home, hx charcot foot but hadn't needed to use that often. Seen w/ walker coming back from bathroom w/o issue but reporting unsteady PT/OT consulted (4) Nausea: on admit, zofran provided and no further nausea at present zofran prn monitor -- denied any reflux symptoms but could put on pepcid if issues. (5) Type 2 diabetes mellitus treated with insulin: BSG 305 on admit glargine 10u now, schedule 10 uBID to start Hold home regimen, BSG AC/HS and SSI recently increased ozempic as above as outpatient last week to 0.5mg (6) Hypothyroidism: TSH wnl, remains on 125mcg daily replacement (7) Dyslipidemia: hold statin given elevated CK 305 on labs and repeat in AM (8) Diabetic peripheral neuropathy associated with type 2 diabetes mellitus: as above check B12 w/ AM labs as well Total Time Total Time Spent Total Time Spent (In Minutes): 32 Discharge Plan Discharge Items Patient Disposition: Home - Self-Care Reason For Visit: PRE-SYNCOPE, NAUSEA Discharge Diagnosis: hypertensive urgency Activity: Resume your previous activity Non-emergency contact: Primary Care Provider Call non-emergency contact if: you have any medication questions Follow-up/Referrals: Enedelia Hamilton MD [Primary Care Provider] - 10/12/22 11:00 am (This appointment will be with Radha Leavitt PA-C. ) Diet: Low Sodium (2gm) Addtl Attending Provider Instructions: Good afternoon Mrs. Adame, You were found to have high blood pressure. We did some workup to rule out other causes of elevated heart rate. This includes checking your urine for urine metanephrines. We will also check your kidneys to check for any narrowing of the renal artery. We checked for a stroke and your MRI did not show any evidence of this. Given your elevated blood pressure, another cause could be your meloxicam. Given that your symptoms improved, we can stop this medicine. In the meantime, we will also increase your Blood pressure meds. You will be remain on lisinopril 10 mg, and will start amlodipine 2.5 mg at bedtime. Studies have shown that taking medications at night control your blood pressure better than taking them in the morning. We could consider increasing your lisinopril to 20 in the future, but I will defer that desicion to your PCP. We will schedule a renal artery duplex as an outpatient. This will be scheduled on Wednesday the . You will need to arrive at [facility] at 7:00. Your test will be at 7:30 am. Please do not eat or drink anything after 10 pm the night before. Please followup with your PCP in 1-2 days. Kindest regards, Scott Kelley Pending Studies at Discharge: No Stand-Alone Forms: My [facility], Smoking Cessation Medications and DC Order Prescriptions: New amlodipine 2.5 mg tablet 2.5 mg PO PM Qty: 30 0RF Continued (DME) Ketostix Strip See Rx Instructions miscellaneous .MEDSUPPLY Qty: 25 5RF Rx Instructions: Check when blood sugars are > 240 for 4 hours or more (DME) OneTouch Verio test strips Strip See Rx Instructions .ROUTE .MEDSUPPLY Qty: 100 3RF Rx Instructions: Check blood sugars 1x a day (DME) Diabetic Shoes Misc See Rx Instructions .Route Qty: 1 0RF Rx Instructions: As directed. E11.610 atorvastatin 40 mg tablet See Rx Instructions .ROUTE .COMPLEX Qty: 90 3RF Dose Instruction: Take 1 tablet by mouth once daily Rx Instructions: Take 1 tablet by mouth once daily (DME) FreeStyle Inez 2 Sensor Kit See Rx Instructions .Route Qty: 7 3RF Rx Instructions: Change every 14 days gabapentin 300 mg capsule 300 mg PO HS Qty: 90 3RF levothyroxine 125 mcg tablet 125 mcg PO DAILY Qty: 90 3RF (DME) lancets [OneTouch Delica Lancets] 30 gauge misc See Rx Instructions .ROUTE .MEDSUPPLY Rx Instructions: Test blood sugar once daily PRN aspirin 81 mg tablet,delayed release (DR/EC) 81 mg PO DAILY omega 0-huv-kan-fish oil [Fish Oil] 1,200 (144-216) mg capsule 1 cap PO DAILY insulin glargine [Lantus Solostar U-100 Insulin] 100 unit/mL (3 mL) insulin p en 32 unit SQ HS Rx Instructions: may increase up to 45 insulin lispro 100 unit/mL insulin pen 50 unit subcut DAILY Rx Instructions: Inject 10-15 units with meals plus sliding scale; TDD 50 units No Action lisinopril 10 mg tablet 10 mg PO DAILY Qty: 90 3RF Discharge Orders: Discharge Order (Routine); Ordered 10/06/22 Ordered By: Scott Merino/Other Patient Handouts: Managing Type 2 Diabetes, Special Foot Care for Diabetes Admission Data Admit Date/Time: 10/05/22 09:18 Attending Provider: Scott Kelley Admit Provider: Scott Kelley Primary Care Provider: Enedelia Hamilton Other Interventions: Discharge Summary Assessment (RN) Last Done: 10/06/22 16:45 Coding Level of Care Code 10257 INP/OBS DISCH >30 MIN Diagnoses Pre-syncope R55 Hypertension I10 Hypertension type: essential hypertension Unsteady gait R26.81 Nausea R11.0 Type 2 diabetes mellitus treated with insulin E11.9; Z79.4 Hypothyroidism E03.9 Hypothyroidism type: acquired Dyslipidemia E78.5 Diabetic peripheral neuropathy associated with type 2 diabetes mellitus E11.42
== END 2022-10-06 18:26 | disposition home or self-care (01) ==
LOC: 2N 06:44 → ED 06:44 → 2N 09:59